=== PATIENT | male | born 1995 | race Two or more races ===

== ENCOUNTER 2024-02-06 07:48 | Inpatient (IN) | payer MEDICAID, OTHER ==
[~2024-02-06] VITALS: Ht 185.4 cm; Wt 79.2 kg
--- NOTE | 2024-02-06 08:36 | ED.PDOC ---
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 Pt reports that he was walking to work yesterday when the pain started. Pt woke up with redness and inflammation to the great toe. Pt has a small abrasion on the top of the great toe <1cm in diameter, no drainage. toenail partially attached on the right great toe. Onset:walking to work, denies trauma Therapies tried: None Requesting ABx Still able to ambulate w/ no assistive devices Denies fevers No pertinent medical hx ID: [id number] Chief Complaint: Lower Extremity Time Seen by MD: 08:21 Reviewed Notes: Nurses Notes, Medications, Allergies Allergies: Coded Allergies: NO KNOWN ALLERGIES (Unverified , 02/06/24) Information Source: Patient Mode of Arrival: Ambulatory Past Medical History PAST MEDICAL HISTORY: Denies Surgical History: Denies all surgeries Family History Family History: Reviewed,noncontributory to illness Social History Smoker: Non-Smoker Alcohol: Denies ETOH Use Drugs: Denies Drug Use Lives In: Homeless Constitutional: denies: chills, diaphoresis, fatigue, fever, malaise, sweats, weakness, others EENTM: denies: blurred vision, double vision, ear bleeding, ear discharge, ear drainage, ear pain, ear ringing, eye pain, eye redness, hearing loss, mouth pain, mouth swelling, nasal discharge, nose bleeding, nose congestion, nose pain, photophobia, tearing, throat pain, throat swelling, voice changes, others Respiratory: denies: cough, hemoptysis, orthopnea, SOB at rest, shortness of breath, SOB with excertion, stridor, wheezing, others Cardiovascular: denies: chest pain, dizzy spells, diaphoresis, Dyspnea on exertion, edema, irregular heart beat, left arm pain, lightheadedness, palpitations, PND, syncope, others Gastrointestinal: denies: abdomen distended, abdominal pain, blood streaked bowels, constipated, diarrhea, dysphagia, difficulty swallowing, hematemesis, [place], nausea, poor appetite, poor fluid intake, rectal bleeding, rectal pain, vomiting, others Genitourinary: denies: burning, dysuria, flank pain, frequency, hematuria, incontinence, penile discharge, penile sore, pain, testicle pain, testicle swelling, urgency, others Neurological: denies: dizziness, fainting, headache, left sided numbness, left sided weakness, numbness, paresthesia, pre-existing deficit, right sided numbness, right sided weakness, seizure, speech problems, tingling, tremors, weakness, others Musculoskeletal: reports: joint pain (Right great toe), others (Pain and inflammation to the first digit of the right foot erythema extends along the dorsal portion of the foot) Integumetry: reports: change in color (Erythema to the right great toe extending up to the midfoot on the plantar portion), wounds (Less than 1 cm abrasion on the anterior portion of the right great) All Other Systems: Reviewed and Negative (per HPI) Physical Exam General Appearance: No Apparent Distress HEENT: Normal ENT Inspection, Pharynx Normal, TMs Normal Neck: Full Range of Motion, Non-Tender, Normal, Normal Inspection Respiratory: Chest Non-Tender, Lungs Clear, No Accessory Muscle Use, No Respiratory Distress, Normal Breath Sounds Cardiovascular: No Edema, No JVD, No Murmur, No Gallop, Normal Peripheral Pulses, Regular Rate/Rhythm Breast Exam: Deferred Gastrointestinal: No Organomegaly, Non Tender, No Pulsatile Mass, Normal Bowel Sounds, Soft Genitalia: Deferred Pelvic: Deferred Rectal: Deferred Extremities: No calf tenderness, Normal capillary refill, Normal inspection, Normal range of motion, Non-tender, No pedal edema Musculoskeletal : Location: Right Extremity Location: Great Toe (erythema, inflammation, tenderness, erythema streaking up to the midfoot-dorsal portion, no discharge or drainage, small abrasion<1cm) Apperance: Normal Neurologic: Alert, belt dresser II-XII nml as Tested, No Motor Deficits, Normal Affect, Normal Mood, No Sensory Deficits Cerebellar Function: Normal Reflexes: Normal Skin: Dry, Normal Color, Warm Lymphatic: No Adenopathy Was a procedure done? Was a procedure done?: No Differential Diagnosis EXT Differential Diagnosis: Cellulitis, Fracture, Gout, Contusion X-Ray, Labs, Meds, VS Vital Signs Date Time Temp Pulse Resp B/P (MAP) Pulse Ox O2 Delivery O2 Flow Rate FiO2 02/06/24 11:47 Room Air* 0 21 02/06/24 08:44 92 18 99 Room Air 02/06/24 08:44 98.2 92 18 148/98 (115) 99 98.2 02/06/24 08:05 98.2 92 18 148/98 (115) 99 Lab Test 02/06/24 09:00 02/06/24 08:50 Range/Units Urine Color Yellow Yellow Urine Clarity Clear Clear Urine pH 6.5 5.0-9.0 Urine Specific [place] 1.037 H 1.001-1.035 Urine Protein 1+ H Negative Urine Ketones 3+ H Negative Urine Blood Negative Negative /uL Urine Nitrite Negative Negative Urine Bilirubin Negative Negative Urine Urobilinogen Over Negative mg/dL Urine Leukocyte Esterase Negative Negative /uL Urine RBC 11 0 - 3 /hpf Urine WBC 1 0 - 3 /hpf Urine Squamous Epithelial Cells Few <5 /hpf Urine Bacteria None seen None Seen /hpf Urine Mucus Few None Seen Urine Glucose Normal Normal mg/dL White Blood Count 18.6 H 4.4-10.8 10^3/uL Red Blood Count 5.27 4.5-5.90 10^6/uL Hemoglobin 15.8 13.5-17.5 g/dL Hematocrit 46.7 41.0-53.0 % Mean Corpuscular Volume 88.6 80.0-100.0 fL Mean Corpuscular Hemoglobin 30.1 28.0-32.0 pg Mean Corpuscular Hemoglobin Concent 33.9 32.0-36.0 g/dL Red Cell Distribution Width 13.6 11.8-14.3 % Platelet Count 249 140-450 10^3/uL Mean Platelet Volume 8.2 6.9-10.8 fL Neutrophils (%) (Auto) 87.9 H 37.0-80.0 % Lymphocytes (%) (Auto) 4.2 L 10.0-50.0 % Monocytes (%) (Auto) 7.5 0.0-12.0 % Eosinophils (%) (Auto) 0.0 0.0-7.0 % Basophils (%) (Auto) 0.4 0.0-2.0 % Neutrophils # (Auto) 16.4 H 1.6-8.6 10 ^3/uL Lymphocytes # (Auto) 0.8 0.4-5.4 10 ^3/uL Monocytes # (Auto) 1.4 H 0-1.3 10 ^3/uL Eosinophils # (Auto) 0 0-0.8 10 ^3/uL Basophils # (Auto) 0.1 0-0.2 10 ^3/uL Nucleated Red Blood Cells 0.0 % Sodium Level 135 L 136-145 mmol/L Potassium Level 3.9 3.5-5.1 mmol/L Chloride Level 101 98-107 mmol/L Carbon Dioxide Level 28 20-31 mmol/L Anion Gap 6 5-15 Blood Urea Nitrogen 10 9-23 mg/dL Creatinine 0.77 0.700-1.30 mg/dL Glomerular Filtration Rate Calc 125 >90 mL/min BUN/Creatinine Ratio 13.0 10.0-20.0 Serum Glucose 103 74-106 mg/dL Uric Acid 5.4 3.7-9.2 mg/dL Calcium Level 10.4 8.7-10.4 mg/dL Total Bilirubin 1.4 H 0.2-1.0 mg/dL Aspartate Amino Transferase (AST) 27 13-40 U/L Alanine Aminotransferase (ALT) 32 7-40 U/L Alkaline Phosphatase 169 H 46-116 U/L C-Reactive Protein High Sensitivity 7.37 H <1.0 mg/dL Total Protein 7.7 5.7-8.2 g/dL Albumin 4.8 3.2-4.8 g/dL Current Medications Medications (Trade) Dose Ordered Sig/Linden Route Start Time Stop Time Status Last Admin Acetaminophen/ Hydrocodone Bitart (Juliette 5/325MG Tab) 1 tab ONCE ONCE PO 02/06/24 08:45 02/06/24 08:46 DC 02/06/24 08:47 Ceftriaxone Sodium (Rocephin) 1,000 mg ONCE ONCE IM 02/06/24 08:45 02/06/24 08:46 DC 02/06/24 08:47 PATIENT: STACY OLSONT: [id number]: [id number] : 1995 LOC: ER ROOM / BED: / AGE / SEX: 28 / M ADM STATUS: REG ER SERVICE 9 ORDERING PHYSICIAN: ENRIQUE COUCH PROCEDURE(s): RFOOT - R FOOT 3 VIEW XRAY REASON: r/o osteomyelitis, r/o fracture ORDER NUMBER(s): [id number], ACCESSION NUMBER(s): [id number] Procedure: XY R FOOT 3 VIEW XRAY 02/06/2024 08:55 AM TECHNIQUE: 3 views of the right foot Indication:r/o osteomyelitis, r/o fracture. Comparison: None FINDINGS: Bones: No acute fracture or dislocation. Joint spaces are maintained. Mild thinning of 2nd distal phalangeal head lateral cortex . Soft tissues: . No radiopaque foreign body.Soft tissue swelling is seen overlying the toes and on dorsum of the foot. An ulceration is seen on the lateral aspect of 2nd distal toe. IMPRESSION: 1. Diffuse soft tissue swelling/ cellulitis, 2nd toe ulceration and questionable developing acute osteomyelitis of the underlying lateral distal phalangeal head. Recommend clinical and biochemical correlation and if indicated further evaluation with MRI. ATED BY: MELIDA PEDRAZA MD DICTATED DATE/TIME: 02/06/24914 SIGNED BY: MELIDA PEDRAZA MD SIGNED DATE/TIME: 02/06/24914 CC: X-Ray, Labs, Meds, VS Comment 1. Diffuse soft tissue swelling/ cellulitis, 2nd toe ulceration and questionable developing acute osteomyelitis of the underlying lateral distal phalangeal head. Recommend clinical and biochemical correlation and if indicated further evaluation with MRI. Pt to be admitted for treatment of cellulitis and osteomyelitis of the right gr eat toe with IV antibiotics and pain control. Time of 1ST Reevaluation: 10:18 Reevaluation 1ST: Improved Patient Education/Counseling: Diagnosis, Treatment, Prognosis Family Education/Counseling: No Family Present Departure 1 Departure Time of Disposition: 10:26 Impression: Primary Impression: Osteomyelitis Qualified Codes: M86.171 - Other acute osteomyelitis, right ankle and foot Additional Impressions: Cellulitis Qualified Codes: L03.031 - Cellulitis of right toe Pain of right great toe Disposition: ADMITTED INPATIENT Condition: Guarded Critical Care Note Critical Care Time?: No Stability Stability form required: No Heart Score Heart Score: Heart Score Response (Comments) Value History N/A 0 EKG N/A 0 Age N/A 0 Risk Factors N/A 0 Troponin N/A 0 Total 0 ENRIQUE COUCH [facility] Feb 06, 2024 08:36
[2024-02-06] MEDS: cefTRIAXone SOD 1,000 MG VL IM ONE (08:47)
[2024-02-06] MEDS: HYDROcodone-ACET 5/325MG TAB PO ONE (08:47)
[2024-02-06 09:12] LABS: Basophils # (auto) 0.1 10 ^3/uL (0-0.2); Basophils % (auto) 0.4 % (0.0-2.0); Eosinophils # (auto) 0 10 ^3/uL (0-0.8); Hematocrit 46.7 % (41.0-53.0); Hemoglobin 15.8 g/dL (13.5-17.5); Lymphocytes # (auto) 0.8 10 ^3/uL (0.4-5.4); Lymphocytes % (auto) 4.2 % (10.0-50.0); Mean Corpuscular Hemoglobin 30.1 pg (28.0-32.0); Mean Corpuscular Hgb Conc. 33.9 g/dL (32.0-36.0); Mean Corpuscular Volume 88.6 fL (80.0-100.0); Monocytes # (auto) 1.4 10 ^3/uL (0-1.3); Monocytes % (auto) 7.5 % (0.0-12.0); Neutrophils # (auto) 16.4 10 ^3/uL (1.6-8.6); Neutrophils % (auto) 87.9 % (37.0-80.0); Platelet Count (auto) 249 10^3/uL (140-450); Red Blood Cells 5.27 10^6/uL (4.5-5.90); Red Cell Distribution Width 13.6 % (11.8-14.3); White Blood Cell 18.6 10^3/uL (4.4-10.8)
--- NOTE | 2024-02-06 09:18 | DVH ---
Procedure: XY R FOOT 3 VIEW XRAY 02/06/2024 08:55 AM TECHNIQUE: 3 views of the right foot Indication:r/o osteomyelitis, r/o fracture. Comparison: None FINDINGS: Bones: No acute fracture or dislocation. Joint spaces are maintained. Mild thinning of 2nd distal pha langeal head lateral cortex . Soft tissues: . No radiopaque foreign body.Soft tissue swelling is seen overlying the toes and on mark sum of the foot. An ulceration is seen on the lateral aspect of 2nd distal toe. IMPRESSION: 1. Diffuse soft tissue swelling/ cellulitis, 2nd toe ulceration and questionable developing acute ost eomyelitis of the underlying lateral distal phalangeal head. Recommend clinical and biochemical corre lation and if indicated further evaluation with MRI.
[2024-02-06 09:33] LABS: Alanine Aminotransferase 32 U/L (7-40); Alkaline Phosphatase 169 U/L (46-116); Anion Gap 6 (5-15); Blood Urea Nitrogen 10 mg/dL (9-23); Calcium 10.4 mg/dL (8.7-10.4); Carbon Dioxide 28 mmol/L (20-31); Chloride 101 mmol/L (98-107); Glucose 103 mg/dL (74-106); Potassium 3.9 mmol/L (3.5-5.1); Sodium 135 mmol/L (136-145)
[2024-02-06 09:34] LABS: Albumin 4.8 g/dL (3.2-4.8); Aspartate Aminotransferase 27 U/L (13-40); Bilirubin, Total 1.4 mg/dL (0.2-1.0); Total Protein 7.7 g/dL (5.7-8.2)
[2024-02-06 09:42] LABS: CRP High Sensitivity 7.37 mg/dL (<1.0)
[2024-02-06 09:49] LABS: Urine Bacteria None Seen /hpf (None Seen)
[2024-02-06 10:04] LABS: Urine Blood Negative /uL (Negative); Urine Clarity Clear (Clear); Urine Color Yellow (Yellow); Urine Mucus FEW (None Seen); Urine Protein, UAD 1+ (Negative); Urine Specific Gravity 1.037 (1.001-1.035); Urine Urobilinogen OVER mg/dL (Negative); Urine WBC 1 /hpf (0 - 3); Urine pH 6.5 (5.0-9.0)
[2024-02-06] MEDS: SODIUM CHLORIDE 0.9% 1,000 ML IV SCH (11:15)
[2024-02-06] MEDS ORDERED: DOCUSATE SOD 100 MG CAP PO PRN (11:15)
[2024-02-06] MEDS ORDERED: VANCOMYCIN PER PHARMACY 0 MG IV SCH (11:30)
--- NOTE | 2024-02-06 11:42 | DVHHP2 ---
History of Present Illness Reason for Visit: Osteomyelitis History of Present Illness The patient is a 28-year-old male deaf who denies past medical history presented to [facility] ED with complaint of right great toe pain. Patient reports symptoms progressively get worse with redness, swollen, difficulty sleeping due to excessive pain, getting worse that prompted this visit. Patient has a small abrasion on the top of the great toe <1cm in diameter, no drainage. toenail partially attached on the right great toe. Patient was seen and evaluated in the ED, laboratory data shows elevated WBC 18.6, platelets 249, sodium 135, potassium 3.9, BUN 10, creatinine 0 seven seven, glucose 103, CRP 7.37, uric acid 5.4, total bilirubin 1.4, blood pressure 148/98, rate 92, temperature 98.2 F, O2 saturation 99% room. Right foot CT revealing diffuse soft tissue swelling/cellulitis, 2nd toe ulceration and questionable developing acute osteomyelitis of the underlying lateral distal phalangeal head. Patient was started on IV antibiotic regimen Zosyn, please see medication orders section in the computer. On my assessment, patient denies chest pain, no headache, no dizziness, no nausea, no vomiting, no fever, no chills. Patient was admitted for further evaluation and medical management Past Medical History Denies past medical history Past Surgical History Denies all surgeries Family History Reviewed, noncontributory to the management of this case. Past Social History The patient lives at home, denies smoking, alcohol or illicit drugs abuse. Review of Systems Constitutional: No: Fever, Chills, Sweats, Weakness, Malaise, Other Eyes: No: Pain, Vision change, Conjunctivae inflammation, Eyelid inflammation, Other, Redness ENT: No: Ear pain, Ear discharge, Nose pain, Nose discharge, Nose congestion, Mouth pain, Mouth swelling, Throat pain, Throat swelling, Other Respiratory: No: Cough, Dry, Shortness of breath, SOB with excertion, Wheezing, Hemoptysis, Pleuritic Pain, Sputum, Wheezing, Other Cardiovascular: No: Chest Pain, Palpitations, Orthopnea, Paroxysmal Noc. Dyspnea, Edema, Lt Headedness, Other Gastrointestinal: No: Nausea, Vomiting, Abdominal Pain, Diarrhea, Constipation, Melena, Hematochezia, Other Genitourinary: No Dysuria, No Frequency, No Incontinence, No Hematuria, No Retention, No Other Musculoskeletal: other (Right great toe pain); No: neck pain, shoulder pain, arm pain, back pain, hand pain, leg pain, foot pain Skin: No: Rash, Lesions, Jaundice, Bruising, Other Neurological: No: Weakness, Numbness, Incoordination, Change in speech, Confusion, Seizures, Other Allergies: Coded Allergies: NO KNOWN ALLERGIES (Unverified , 02/06/24) Medications Current Medications Medications Dose Ordered Sig/Linden Route Start Time Stop Time Status Last Admin Dose Admin Piperacillin Sod/ Tazobactam Sod 100 ml @ 25 mls/hr Q8HR IV 02/06/24 14:00 UNV Sodium Chloride 1,000 ml @ 60 mls/hr [id number] IV 02/06/24 11:15 UNV Acetaminophen/ Hydrocodone Bitart 1 tab Q4HP PRN PO 02/06/24 11:15 UNV Ondansetron HCl 4 mg Q4HP PRN IV 02/06/24 11:15 UNV Docusate Sodium 100 mg BIDPRN PRN PO 02/06/24 11:15 UNV Acetaminophen 650 mg Q6HP PRN PO 02/06/24 11:15 UNV Morphine Sulfate 2 mg Q4HPRN PRN IV 02/06/24 11:15 UNV Vancomycin HCl 0 ml @ 0 mls/hr UD IV 02/06/24 11:30 UNV Exam Vital Signs Vital Signs Date Time Temp Pulse Resp B/P (MAP) Pulse Ox O2 Delivery O2 Flow Rate FiO2 02/06/24 08:44 92 18 99 Room Air 02/06/24 08:44 98.2 148/98 (115) 98.2 General Appearance: Alert, Oriented X3, Cooperative, No acute distress HEENT: Atraumatic, PERRLA, EOMI, Mucous membr. moist/pink Respiratory: Clear to auscultation, Normal air movement Cardiovascular: Regular rate, Normal S1, Normal S2, No murmurs Abdominal: Normal bowel sounds, Soft, No tenderness, No hepatospenomegaly, No masses Extremities: No clubbing, No cyanosis, No edema, Normal pulses, Other (Right great toe tenderness/swelling) Skin: No rashes, No breakdown, No significant lesion Neuro: Normal gait, Normal speech, Strength at 5/5 X4 ext, Normal tone, Sensation intact, Cranial nerves 3-12 NL, Reflexes 2+ Psych/Mental Status: Mental status NL, Mood NL Labs/Xrays Labs Test 02/06/24 09:00 02/06/24 08:50 Range/Units Urine Color Yellow Yellow Urine Clarity Clear Clear Urine pH 6.5 5.0-9.0 Urine Specific [place] 1.037 H 1.001-1.035 Urine Protein 1+ H Negative Urine Ketones 3+ H Negative Urine Blood Negative Negative /uL Urine Nitrite Negative Negative Urine Bilirubin Negative Negative Urine Urobilinogen Over Negative mg/dL Urine Leukocyte Esterase Negative Negative /uL Urine RBC 11 0 - 3 /hpf Urine WBC 1 0 - 3 /hpf Urine Squamous Epithelial Cells Few <5 /hpf Urine Bacteria None seen None Seen /hpf Urine Mucus Few None Seen Urine Glucose Normal Normal mg/dL White Blood Count 18.6 H 4.4-10.8 10^3/uL Red Blood Count 5.27 4.5-5.90 10^6/uL Hemoglobin 15.8 13.5-17.5 g/dL Hematocrit 46.7 41.0-53.0 % Mean Corpuscular Volume 88.6 80.0-100.0 fL Mean Corpuscular Hemoglobin 30.1 28.0-32.0 pg Mean Corpuscular Hemoglobin Concent 33.9 32.0-36.0 g/dL Red Cell Distribution Width 13.6 11.8-14.3 % Platelet Count 249 140-450 10^3/uL Mean Platelet Volume 8.2 6.9-10.8 fL Neutrophils (%) (Auto) 87.9 H 37.0-80.0 % Lymphocytes (%) (Auto) 4.2 L 10.0-50.0 % Monocytes (%) (Auto) 7.5 0.0-12.0 % Eosinophils (%) (Auto) 0.0 0.0-7.0 % Basophils (%) (Auto) 0.4 0.0-2.0 % Neutrophils # (Auto) 16.4 H 1.6-8.6 10 ^3/uL Lymphocytes # (Auto) 0.8 0.4-5.4 10 ^3/uL Monocytes # (Auto) 1.4 H 0-1.3 10 ^3/uL Eosinophils # (Auto) 0 0-0.8 10 ^3/uL Basophils # (Auto) 0.1 0-0.2 10 ^3/uL Nucleated Red Blood Cells 0.0 % Sodium Level 135 L 136-145 mmol/L Potassium Level 3.9 3.5-5.1 mmol/L Chloride Level 101 98-107 mmol/L Carbon Dioxide Level 28 20-31 mmol/L Anion Gap 6 5-15 Blood Urea Nitrogen 10 9-23 mg/dL Creatinine 0.77 0.700-1.30 mg/dL Glomerular Filtration Rate Calc 125 >90 mL/min BUN/Creatinine Ratio 13.0 10.0-20.0 Serum Glucose 103 74-106 mg/dL Uric Acid 5.4 3.7-9.2 mg/dL Calcium Level 10.4 8.7-10.4 mg/dL Total Bilirubin 1.4 H 0.2-1.0 mg/dL Aspartate Amino Transferase (AST) 27 13-40 U/L Alanine Aminotransferase (ALT) 32 7-40 U/L Alkaline Phosphatase 169 H 46-116 U/L C-Reactive Protein High Sensitivity 7.37 H <1.0 mg/dL Total Protein 7.7 5.7-8.2 g/dL Albumin 4.8 3.2-4.8 g/dL PATIENT: NAVEEN OLSON ACCT: [id number] UNIT: [id number] : 1995 LOC: ER ROOM / BED: / AGE / SEX: 28 / M ADM STATUS: REG ER SERVICE 0840 ORDERING PHYSICIAN: ENRIQUE COUCH PROCEDURE(s): RFOOT - R FOOT 3 VIEW XRAY REASON: r/o osteomyelitis, r/o fracture ORDER NUMBER(s): [id number], ACCESSION NUMBER(s): [id number] Procedure: XY R FOOT 3 VIEW XRAY 02/06/2024 08:55 AM TECHNIQUE: 3 views of the right foot Indication:r/o osteomyelitis, r/o fracture. Comparison: None FINDINGS: Bones: No acute fracture or dislocation. Joint spaces are maintained. Mild thinning of 2nd distal phalangeal head lateral cortex . Soft tissues: No radiopaque foreign body.Soft tissue swelling is seen overlying the toes and on dorsum of the foot. An ulceration is seen on the lateral aspect of 2nd distal toe. IMPRESSION: 1. Diffuse soft tissue swelling/cellulitis, 2nd toe ulceration and questionable developing acute osteomyelitis of the underlying lateral distal phalangeal head. Recommend clinical and biochemical correlation and if indicated further evaluation with MRI. Assessment/Plan Assessment/Plan Osteomyelitis Cellulitis of right toe Pain of right great toe Other acute osteomyelitis, right ankle and foot Plan 1. Admit to med surge unit 2. Breathing treatment 3. Pain control management 4. IV antibiotic management 5. Management of fluids and electrolytes 6. Consultation for hospitalist 7. Diagnostic test right foot CT 8. DVT prophylaxis-on SCDs 9. Repeat labs CBC, CMP in a.m. 10. Home medication reviewed and reconciled 11. Continue with current medical management 12. Treatment plan discussed with patient and RN. Patient verbalized understandi ng. Plan discussed with: Patient, Other (RN) My Orders Orders - PAM MADRID DNP Procedure Category Date Status Time Blood Culture LY 02/06/24 Logged 11:07 Piperacillin-Tazob PHA 02/06/24 Logged 3.375gm (Zosyn 3.375g 14:00 Allergies EMANUEL 02/06/24 In Process 11:07 Code Status CODE 02/06/24 Transmitted 11:07 2 Gm Sodium Diet DIET 02/06/24 Transmitted Lunch Sodium Chloride 0.9% PHA 02/06/24 Logged 11:15 Oxygen Per Hour RT 02/06/24 Transmitted 11:07 Hydrocodone-Acet PHA 02/06/24 Logged 5/325mg Tab ([place] 11:15 Ondansetron Hcl PHA 02/06/24 Logged (Zofran) 11:15 Docusate Sodium PHA 02/06/24 Logged Capsule (Colace 11:15 Complete Blood Count LAB 02/07/24 Verified 04:00 Comprehensive LAB 02/07/24 Verified Metabolic Panel 04:00 Condition: Serious EMANUEL 02/06/24 In Process 11:07 Acetaminophen Tablet PHA 02/06/24 Logged (Tylenol Tablet) 11:15 Bedrest With Bathroom EMANUEL 02/06/24 In Process Privileg 11:07 Morphine Sulfate PHA 02/06/24 Logged Injection 11:15 Sequential EMANUEL 02/06/24 In Process Compression Device Vancomycin Per PHA 02/06/24 Logged Pharmacy 11:30 Problem List: (1) Osteomyelitis (2) Cellulitis of right toe (3) Pain of right great toe (4) Other acute osteomyelitis, right ankle and foot Date of Service: Feb 06, 2024 Billing Provider: PAM MADRID DNP Common Visit Codes: [id number] INP/OBS CARE (HIGH) PAM MADRID DNP Feb 06, 2024 11:42
[2024-02-06] MEDS ORDERED: MORPHINE SULFATE INJ 2 MG/ml SYRG IV PRN (11:45)
[2024-02-06] MEDS ORDERED: NITROGLYCERIN 0.4 MG SL TAB SL PRN (11:45)
[2024-02-06] MEDS: VANCOMYCIN 1GM/200ML PREMIX 200 ML IV SCH (12:47)
[2024-02-06] MEDS: PIPERACILLIN-TAZOB 3.375GM 100 ML IV SCH (14:17)
[2024-02-06] MEDS: VANCOMYCIN 1GM/200ML PREMIX 200 ML IV ONE (16:33)
[2024-02-06 17:15] VITALS: BP 133/88; PULSE 91; RESP 16; TEMP 99.4; O2SAT 99
[2024-02-06] MEDS: ONDANSETRON HCL 4 MG/2 ML VIAL IV PRN (20:59)
[2024-02-06] MEDS: MORPHINE SULFATE INJ 2 MG/ml SYRG IV PRN (21:01)
[2024-02-06] MEDS: VANCOMYCIN 1.25GM/250ML 250 ML IV SCH (23:03)
[2024-02-07] VITALS (8 sets, daily range): BP systolic 123–129; BP diastolic 75–84; PULSE 75–94; RESP 14–21; TEMP 98.2–99.3; O2SAT 96–99
[2024-02-07] MEDS: ACETAMINOPHEN 325 MG TAB PO PRN (02:00)
[2024-02-07 05:45] LABS: Basophils # (auto) 0.1 10 ^3/uL (0-0.2); Basophils % (auto) 0.3 % (0.0-2.0); Eosinophils # (auto) 0 10 ^3/uL (0-0.8); Eosinophils % (auto) 0.1 % (0.0-7.0); Hematocrit 44.4 % (41.0-53.0); Hemoglobin 15.2 g/dL (13.5-17.5); Lymphocytes # (auto) 1.7 10 ^3/uL (0.4-5.4); Lymphocytes % (auto) 10.3 % (10.0-50.0); Mean Corpuscular Hemoglobin 30.5 pg (28.0-32.0); Mean Corpuscular Hgb Conc. 34.3 g/dL (32.0-36.0); Mean Corpuscular Volume 88.9 fL (80.0-100.0); Monocytes # (auto) 1.5 10 ^3/uL (0-1.3); Monocytes % (auto) 9.3 % (0.0-12.0); Platelet Count (auto) 238 10^3/uL (140-450); Red Cell Distribution Width 13.5 % (11.8-14.3); White Blood Cell 16.3 10^3/uL (4.4-10.8)
[2024-02-07 06:02] LABS: Alanine Aminotransferase 31 U/L (7-40); Albumin 4.4 g/dL (3.2-4.8); Alkaline Phosphatase 154 U/L (46-116); Anion Gap 6 (5-15); Aspartate Aminotransferase 17 U/L (13-40); BUN/Creatinine Ratio 9.4 (10.0-20.0); Bilirubin, Total 0.8 mg/dL (0.2-1.0); Blood Urea Nitrogen 8 mg/dL (9-23); Calcium 9.7 mg/dL (8.7-10.4); Carbon Dioxide 27 mmol/L (20-31); Chloride 104 mmol/L (98-107); Glucose 110 mg/dL (74-106); Potassium 3.9 mmol/L (3.5-5.1); Sodium 137 mmol/L (136-145); Total Protein 7.1 g/dL (5.7-8.2)
[2024-02-07] MEDS: PIPERACILLIN-TAZOB 3.375GM 100 ML IV SCH ×2 (10:17→20:26)
[2024-02-07] MEDS: HYDROcodone-ACET 5/325MG TAB PO PRN (12:59)
--- NOTE | 2024-02-07 13:32 | DVHPN2 ---
Reviewed: Care Plan, H&P, Labs, Medications, Previous Orders, Radiology Changes from previous H/P or p: No Changes Eyes: No Pain, No Vision change, No Conjunctivae inflammation, No Eyelid inflammation, No Other, No Redness ENT: No Ear pain, No Ear discharge, No Nose pain, No Nose discharge, No Nose congestion, No Mouth pain, No Mouth swelling, No Throat pain, No Throat swelling, No Other Cardiovascular: No Chest Pain, No Palpitations, No Orthopnea, No Paroxysmal Noc. Dyspnea, No Edema, No Lt Headedness, No Other Respiratory: No Cough, No Dry, No Shortness of breath, No SOB with excertion, No Wheezing, No Hemoptysis, No Pleuritic Pain, No Sputum, No Other Gastrointestinal: No Nausea, No Vomiting, No Abdominal Pain, No Diarrhea, No Constipation, No Melena, No Hematochezia, No Other Genitourinary: No Dysuria, No Frequency, No Incontinence, No Hematuria, No Retention, No Other Musculoskeletal: other (Right great toe pain); No neck pain, No shoulder pain, No arm pain, No back pain, No hand pain, No leg pain, No foot pain Skin: No Rash, No Lesions, No Jaundice, No Bruising, No Other Objective Vitals Vital Signs Date Time Temp Pulse Resp B/P (MAP) Pulse Ox O2 Delivery O2 Flow Rate FiO2 02/07/24 12:50 98.4 77 21 127/80 (96) 96 98.4 02/07/24 08:00 Room Air* 0 21 Intake/Output Intake and Output 02/07/24 07:00 Intake Total 500 ml Output Total 550 ml Balance -50 ml Intake Oral 250 ml IV Total 250 ml Output Urine Total 550 ml # Bowel Movements 1 Medications Current Medications Medications Dose Ordered Sig/Linden Route Start Time Stop Time Status Last Admin Dose Admin Sodium Chloride 1,000 ml @ 60 mls/hr [id number] IV 02/06/24 11:15 02/07/24 04:00 60 MLS/HR Acetaminophen/ Hydrocodone Bitart 1 tab Q4HP PRN PO 02/06/24 11:15 02/07/24 12:59 1 TAB Ondansetron HCl 4 mg Q4HP PRN IV 02/06/24 11:15 02/06/24 20:59 4 MG Docusate Sodium 100 mg BIDPRN PRN PO 02/06/24 11:15 Acetaminophen 650 mg Q6HP PRN PO 02/06/24 11:15 02/07/24 02:00 650 MG Morphine Sulfate 2 mg Q4HPRN PRN IV 02/06/24 11:15 02/06/24 21:01 2 MG Vancomycin HCl 0 ml @ 0 mls/hr UD IV 02/06/24 11:30 Nitroglycerin 0.4 mg Q5MINP PRN SL 02/06/24 11:45 Morphine Sulfate 2 mg Q30M PRN IV 02/06/24 11:45 Vancomycin HCl 250 ml @ 200 mls/hr Q12H IV 02/07/24 01:00 02/06/24 23:03 200 MLS/HR Piperacillin Sod/ Tazobactam Sod 100 ml @ 25 mls/hr Q8H IV 02/07/24 10:00 02/07/24 10:17 25 MLS/HR Laboratory Results Laboratory Tests 02/07/24 04:54 Chemistry Test 02/07/24 04:54 Albumin 4.4 g/dL (3.2-4.8) Calcium Level 9.7 mg/dL (8.7-10.4) Total Protein 7.1 g/dL (5.7-8.2) LFT Test 02/07/24 04:54 Alanine Aminotransferase (ALT) 31 U/L (7-40) Alkaline Phosphatase 154 U/L (46-116) H Aspartate Amino Transferase (AST) 17 U/L (13-40) Total Bilirubin 0.8 mg/dL (0.2-1.0) Urinalysis Test 02/06/24 09:00 Urine Color Yellow (Yellow) Urine Clarity Clear (Clear) Urine pH 6.5 (5.0-9.0) Urine Specific [place] 1.037 (1.001-1.035) Urine Protein 1+ (Negative) H Urine Ketones 3+ (Negative) H Urine Blood Negative /uL (Negative) Urine Nitrite Negative (Negative) Urine Bilirubin Negative (Negative) Urine Urobilinogen Over mg/dL (Negative) Urine Leukocyte Esterase Negative /uL (Negative) Urine RBC 11 /hpf (0 - 3) Urine WBC 1 /hpf (0 - 3) Urine Squamous Epithelial Cells Few /hpf (<5) Urine Bacteria None seen /hpf (None Seen) Urine Mucus Few (None Seen) Urine Glucose Normal mg/dL (Normal) Microbiology Microbiology Date/Time Source Procedure Growth Status 02/06/24 12:47 Blood Blood Culture - Preliminary NO GROWTH AFTER 24 HOURS OF INCUBATION. Resulted Labs and/or images reviewed: Labs reviewed by me, Image(s) reviewed by me Assessment/Plan Assessment/Plan Sepsis secondary to cellulitis right foot Acute osteomyelitis right 2nd toe: Vancomycin Zosyn consult for podiatry Dr. Momin Hearing impaired Plan discussed with: Patient My Orders Orders - AYO CERDA MD Procedure Category Date Status Time *Podiatry Consult CONS 02/07/24 Verified Liliane([facility]) 13:26 Date of Service: Feb 07, 2024 Billing Provider: AYO CERDA MD Common Visit Codes: [id number] INP/OBS CARE(HIGH) AYO CERDA MD Feb 07, 2024 13:32
--- NOTE | 2024-02-07 14:04 | DVHINCON2 ---
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 Patient reports symptoms progressively get worse with redness, swollen, difficulty sleeping due to excessive pain, getting worse that prompted this visit. Patient has a small abrasion on the top of the great toe <1cm in diameter, no drainage. toenail partially attached on the right great toe. Patient was seen and evaluated in the ED, laboratory data shows elevated WBC 18.6, platelets 249, sodium 135, potassium 3.9, BUN 10, creatinine 0 seven seven, glucose 103, CRP 7.37, uric acid 5.4, total bilirubin 1.4, blood pressure 148/98, rate 92, temperature 98.2 F, O2 saturation 99% room. Right foot CT revealing diffuse soft tissue swelling/cellulitis, 2nd toe ulceration and questionable developing acute osteomyelitis of the underlying lateral distal phalangeal head. Patient was started on IV antibiotic regimen Zosyn, please see medication orders section in the computer. On my assessment, patient denies chest pain, no headache, no dizziness, no nausea, no vomiting, no fever, no chills. Patient was admitted for further evaluation and medical management Past Medical History See H&P Past Surgical History See H&P Family History: Patient reports no known family medical history. Allergies: Coded Allergies: NO KNOWN ALLERGIES (Unverified , 02/06/24) Home Meds No Active Prescriptions or Reported Meds Current Medications Current Medications Medications (Trade) Dose Ordered Sig/Linden Route PRN Reason Start Time Stop Time Status Last Admin Vancomycin HCl 250 ml @ 200 mls/hr Q12H IV 02/07/24 01:00 02/06/24 23:03 Piperacillin Sod/ Tazobactam Sod 100 ml @ 25 mls/hr Q8H IV 02/07/24 10:00 02/07/24 10:17 Vital Signs Vital Signs Date Time Temp Pulse Resp B/P (MAP) Pulse Ox O2 Delivery O2 Flow Rate FiO2 02/07/24 12:50 98.4 77 21 127/80 (96) 96 98.4 02/07/24 08:00 Room Air* 0 21 Physical Exam DERMATOLOGIC EXAM: - Skin is dry and cool to the touch dry bilaterally. - Nails 1-5 of the bilateral foot are thickened, discolored, dystrophic, and tender to palpate with subungual debris - Hair loss noted to bilateral feet - significantly cellulitis and swelling to the right hallux with purulent drainage VASCULAR EXAM: - DP and PT pulses are palpable bilaterally. - DECK OFFICER is brisk to all digits. - Feet are cool to touch compared to lower legs bilaterally. NEUROLOGIC EXAM: - Normal light touch sensation to the superficial peroneal, deep peroneal, sural, saphenous, and tibial nerve branches. - Protective sensation is diminished as tested with a 5.07 10g [place] bilaterally. MUSCULOSKELETAL EXAM: - No gross deformities - Muscle strength is 5/5 and active motion is pain-free and symmetrical bilaterally - No pain or crepitation with passive range of motion bilaterally to all major pedal joints Labs/Diagnostic Data Labs Test 02/07/24 04:54 02/06/24 09:00 02/06/24 08:50 Range/Units White Blood Count 16.3 H 4.4-10.8 10^3/uL Red Blood Count 5.00 4.5-5.90 10^6/uL Hemoglobin 15.2 13.5-17.5 g/dL Hematocrit 44.4 41.0-53.0 % Mean Corpuscular Volume 88.9 80.0-100.0 fL Mean Corpuscular Hemoglobin 30.5 28.0-32.0 pg Mean Corpuscular Hemoglobin Concent 34.3 32.0-36.0 g/dL Red Cell Distribution Width 13.5 11.8-14.3 % Platelet Count 238 140-450 10^3/uL Mean Platelet Volume 8.2 6.9-10.8 fL Neutrophils (%) (Auto) 80.0 37.0-80.0 % Lymphocytes (%) (Auto) 10.3 10.0-50.0 % Monocytes (%) (Auto) 9.3 0.0-12.0 % Eosinophils (%) (Auto) 0.1 0.0-7.0 % Basophils (%) (Auto) 0.3 0.0-2.0 % Neutrophils # (Auto) 13.0 H 1.6-8.6 10 ^3/uL Lymphocytes # (Auto) 1.7 0.4-5.4 10 ^3/uL Monocytes # (Auto) 1.5 H 0-1.3 10 ^3/uL Eosinophils # (Auto) 0 0-0.8 10 ^3/uL Basophils # (Auto) 0.1 0-0.2 10 ^3/uL Nucleated Red Blood Cells 0.0 % Sodium Level 137 136-145 mmol/L Potassium Level 3.9 3.5-5.1 mmol/L Chloride Level 104 98-107 mmol/L Carbon Dioxide Level 27 20-31 mmol/L Anion Gap 6 5-15 Blood Urea Nitrogen 8 L 9-23 mg/dL Creatinine 0.85 0.700-1.30 mg/dL Glomerular Filtration Rate Calc 121 >90 mL/min BUN/Creatinine Ratio 9.4 L 10.0-20.0 Serum Glucose 110 H 74-106 mg/dL Calcium Level 9.7 8.7-10.4 mg/dL Total Bilirubin 0.8 0.2-1.0 mg/dL Aspartate Amino Transferase (AST) 17 13-40 U/L Alanine Aminotransferase (ALT) 31 7-40 U/L Alkaline Phosphatase 154 H 46-116 U/L Total Protein 7.1 5.7-8.2 g/dL Albumin 4.4 3.2-4.8 g/dL Urine Color Yellow Yellow Urine Clarity Clear Clear Urine pH 6.5 5.0-9.0 Urine Specific [place] 1.037 H 1.001-1.035 Urine Protein 1+ H Negative Urine Ketones 3+ H Negative Urine Blood Negative Negative /uL Urine Nitrite Negative Negative Urine Bilirubin Negative Negative Urine Urobilinogen Over Negative mg/dL Urine Leukocyte Esterase Negative Negative /uL Urine RBC 11 0 - 3 /hpf Urine WBC 1 0 - 3 /hpf Urine Squamous Epithelial Cells Few <5 /hpf Urine Bacteria None seen None Seen /hpf Urine Mucus Few None Seen Urine Glucose Normal Normal mg/dL Uric Acid 5.4 3.7-9.2 mg/dL C-Reactive Protein High Sensitivity 7.37 H <1.0 mg/dL Microbiology Date/Time Source Procedure Growth Status 02/06/24 12:47 Blood Blood Culture - Preliminary NO GROWTH AFTER 24 HOURS OF INCUBATION. Resulted Problems(with codes): (1) Cellulitis (2) Osteomyelitis (3) Pain of right great toe (4) Other acute osteomyelitis, right ankle and foot (5) Cellulitis of right toe Plan/Recommendation ASSESSMENT: Patient is a 28-year-old male who presents to clinic for right hallux cellulitis PLAN: - The patients chart was reviewed, clinical findings were discussed with the patient, the etiologies of the conditions were discussed in detail, and a treatment plan was agreed to at this time, with both oral and written instructions provided. - discussed with the patient that with the swelling and erythema that we need to take him to the lower perform an I&D - patient will be NPO at midnight - continue IV antibiotics - we will get cultures in the OR - with all off on any advanced imaging at this point All questions were answered and concerns addressed to the patient's satisfaction. The patient was given the phone number to the clinic and was told how to make contact with the clinic should any concerns or questions arise. Patient understands that if any questions or concerns arise prior to the next appointment, we should be contacted immediately. FOLLOW-UP: Continue to follow while inpatient Plan discussed with: Patient Date of Service: Feb 07, 2024 Billing Provider: JORGE L COLEMAN DPM Common Visit Codes: [id number] INP/OBS CARE (MOD) JORGE L COLEMAN DPM Feb 07, 2024 14:04
[2024-02-07] MEDS: MUPIROCIN 2% OINT 15gm or 22gm FOR MRSA NARES EACHNOSTRI SCH (22:23)
[2024-02-08] VITALS (9 sets, daily range): BP systolic 93–138; BP diastolic 53–133; PULSE 73–116; RESP 14–21; TEMP 97.9–98.3; O2SAT 95–100
[2024-02-08 11:03] LABS: INR 1.08 (0.9-1.15); Partial Thromboplastin Time 27.9 SEC (24.5-34.5); Prothrombin Time 11.4 sec (9.3-11.8)
--- NOTE | 2024-02-08 11:46 | DVHPN2 ---
Reviewed: Care Plan, H&P, Labs, Medications, Previous Orders, Radiology Changes from previous H/P or p: No Changes Eyes: No Pain, No Vision change, No Conjunctivae inflammation, No Eyelid inflammation, No Other, No Redness ENT: No Ear pain, No Ear discharge, No Nose pain, No Nose discharge, No Nose congestion, No Mouth pain, No Mouth swelling, No Throat pain, No Throat swelling, No Other Cardiovascular: No Chest Pain, No Palpitations, No Orthopnea, No Paroxysmal Noc. Dyspnea, No Edema, No Lt Headedness, No Other Respiratory: No Cough, No Dry, No Shortness of breath, No SOB with excertion, No Wheezing, No Hemoptysis, No Pleuritic Pain, No Sputum, No Other Gastrointestinal: No Nausea, No Vomiting, No Abdominal Pain, No Diarrhea, No Constipation, No Melena, No Hematochezia, No Other Genitourinary: No Dysuria, No Frequency, No Incontinence, No Hematuria, No Retention, No Other Musculoskeletal: other (Right great toe pain); No neck pain, No shoulder pain, No arm pain, No back pain, No hand pain, No leg pain, No foot pain Skin: No Rash, No Lesions, No Jaundice, No Bruising, No Other Objective Vitals Vital Signs Date Time Temp Pulse Resp B/P (MAP) Pulse Ox O2 Delivery O2 Flow Rate FiO2 02/08/24 09:13 98.2 75 18 133/78 (96) 98 98.2 02/08/24 08:00 Room Air* 0 21 Intake/Output Intake and Output 02/08/24 07:00 Intake Total 1290 ml Output Total 2300 ml Balance -1010 ml Intake Oral 940 ml IV Total 350 ml Output Urine Total 2300 ml Medications Current Medications Medications Dose Ordered Sig/Linden Route Start Time Stop Time Status Last Admin Dose Admin Sodium Chloride 1,000 ml @ 60 mls/hr [id number] IV 02/06/24 11:15 02/07/24 04:00 60 MLS/HR Acetaminophen/ Hydrocodone Bitart 1 tab Q4HP PRN PO 02/06/24 11:15 02/07/24 12:59 1 TAB Ondansetron HCl 4 mg Q4HP PRN IV 02/06/24 11:15 02/06/24 20:59 4 MG Docusate Sodium 100 mg BIDPRN PRN PO 02/06/24 11:15 Acetaminophen 650 mg Q6HP PRN PO 02/06/24 11:15 02/07/24 02:00 650 MG Morphine Sulfate 2 mg Q4HPRN PRN IV 02/06/24 11:15 02/06/24 21:01 2 MG Vancomycin HCl 0 ml @ 0 mls/hr UD IV 02/06/24 11:30 Nitroglycerin 0.4 mg Q5MINP PRN SL 02/06/24 11:45 Morphine Sulfate 2 mg Q30M PRN IV 02/06/24 11:45 Vancomycin HCl 250 ml @ 200 mls/hr Q12H IV 02/07/24 01:00 02/08/24 01:11 200 MLS/HR Mupirocin 1 applic BID EACHNOSTRI 02/07/24 22:00 02/12/24 21:59 02/07/24 22:23 1 APPLIC Piperacillin Sod/ Tazobactam Sod 100 ml @ 25 mls/hr Q6H IV 02/07/24 16:00 02/08/24 04:03 25 MLS/HR Laboratory Results Laboratory Tests 02/07/24 04:54 Coagulation Test 02/08/24 10:00 Prothrombin Time 11.4 sec (9.3-11.8) Prothrombin Time INR 1.08 (0.9-1.15) Activated Partial Thromboplast Time 27.9 SEC (24.5-34.5) Urinalysis Test 02/06/24 09:00 Urine Color Yellow (Yellow) Urine Clarity Clear (Clear) Urine pH 6.5 (5.0-9.0) Urine Specific [place] 1.037 (1.001-1.035) Urine Protein 1+ (Negative) H Urine Ketones 3+ (Negative) H Urine Blood Negative /uL (Negative) Urine Nitrite Negative (Negative) Urine Bilirubin Negative (Negative) Urine Urobilinogen Over mg/dL (Negative) Urine Leukocyte Esterase Negative /uL (Negative) Urine RBC 11 /hpf (0 - 3) Urine WBC 1 /hpf (0 - 3) Urine Squamous Epithelial Cells Few /hpf (<5) Urine Bacteria None seen /hpf (None Seen) Urine Mucus Few (None Seen) Urine Glucose Normal mg/dL (Normal) Microbiology Microbiology Date/Time Source Procedure Growth Status 02/07/24 04:40 Nose MRSA Screen - Final Methicillin Resistant S.aureus Complete 02/06/24 12:47 Blood Blood Culture - Preliminary NO GROWTH AFTER 24 HOURS OF INCUBATION. Resulted Labs and/or images reviewed: Labs reviewed by me, Image(s) reviewed by me Assessment/Plan Assessment/Plan Sepsis secondary to cellulitis right foot Acute osteomyelitis right 2nd toe: Vancomycin Zosyn consult for podiatry Dr. Momin appreciated the, patient getting incision and drainage of the abscess today Hearing impaired Plan discussed with: Patient My Orders Orders - AYO CERDA MD Procedure Category Date Status Time *Podiatry Consult CONS 02/07/24 Transmitted Liliane(Dvmg) 13:26 Mupirocin 2% Oint PHA 02/07/24 In Process Mrsa Nares (Bactroban 22:00 Type And Screen BBK 02/08/24 In Process 05:30 Date of Service: Feb 08, 2024 Billing Provider: AYO CERDA MD Common Visit Codes: [id number] INP/OBS CARE(HIGH) AYO CERDA MD Feb 08, 2024 11:46
--- NOTE | 2024-02-08 13:04 | DVHPN2 ---
Subjective he patient is a 28-year-old male deaf who denies past medical history presented to [facility] ED with complaint of right great toe pain. Patient reports symptoms progressively get worse with redness, swollen, difficulty sleeping due to excessive pain, getting worse that prompted this visit. Patient has a small abrasion on the top of the great toe <1cm in diameter, no drainage. toenail partially attached on the right great toe. Patient was seen and evaluated in the ED, laboratory data shows elevated WBC 18.6, platelets 249, sodium 135, potassium 3.9, BUN 10, creatinine 0 seven seven, glucose 103, CRP 7.37, uric acid 5.4, total bilirubin 1.4, blood pressure 148/98, rate 92, temperature 98.2 F, O2 saturation 99% room. Right foot CT revealing diffuse soft tissue swelling/cellulitis, 2nd toe ulceration and questionable developing acute osteomyelitis of the underlying lateral distal phalangeal head. Patient was started on IV antibiotic regimen Zosyn, please see medication orders section in the computer. On my assessment, patient denies chest pain, no headache, no dizziness, no nausea, no vomiting, no fever, no chills. Patient was admitted for further evaluation and medical management Reviewed: Care Plan, H&P, Labs, Medications, Previous Orders, Radiology Changes from previous H/P or p: No Changes Eyes: No Pain, No Vision change, No Conjunctivae inflammation, No Eyelid inflammation, No Other, No Redness ENT: No Ear pain, No Ear discharge, No Nose pain, No Nose discharge, No Nose congestion, No Mouth pain, No Mouth swelling, No Throat pain, No Throat swelling, No Other Cardiovascular: No Chest Pain, No Palpitations, No Orthopnea, No Paroxysmal Noc. Dyspnea, No Edema, No Lt Headedness, No Other Respiratory: No Cough, No Dry, No Shortness of breath, No SOB with excertion, No Wheezing, No Hemoptysis, No Pleuritic Pain, No Sputum, No Other Gastrointestinal: No Nausea, No Vomiting, No Abdominal Pain, No Diarrhea, No Constipation, No Melena, No Hematochezia, No Other Genitourinary: No Dysuria, No Frequency, No Incontinence, No Hematuria, No Retention, No Other Musculoskeletal: other (Right great toe pain); No neck pain, No shoulder pain, No arm pain, No back pain, No hand pain, No leg pain, No foot pain Skin: No Rash, No Lesions, No Jaundice, No Bruising, No Other Objective Vitals Vital Signs Date Time Temp Pulse Resp B/P (MAP) Pulse Ox O2 Delivery O2 Flow Rate FiO2 02/08/24 09:13 98.2 75 18 133/78 (96) 98 98.2 02/08/24 08:00 Room Air* 0 21 Intake/Output Intake and Output 02/08/24 07:00 Intake Total 1290 ml Output Total 2300 ml Balance -1010 ml Intake Oral 940 ml IV Total 350 ml Output Urine Total 2300 ml Exam DERMATOLOGIC EXAM: - Skin is dry and cool to the touch dry bilaterally. - Nails 1-5 of the bilateral foot are thickened, discolored, dystrophic, and tender to palpate with subungual debris - Hair loss noted to bilateral feet - significantly cellulitis and swelling to the right hallux with purulent drainage VASCULAR EXAM: - DP and PT pulses are palpable bilaterally. - DIRECTOR TELEVISION is brisk to all digits. - Feet are cool to touch compared to lower legs bilaterally. NEUROLOGIC EXAM: - Normal light touch sensation to the superficial peroneal, deep peroneal, sural, saphenous, and tibial nerve branches. - Protective sensation is diminished as tested with a 5.07 10g [place]Bettye bilaterally. MUSCULOSKELETAL EXAM: - No gross deformities - Muscle strength is 5/5 and active motion is pain-free and symmetrical bilaterally - No pain or crepitation with passive range of motion bilaterally to all major pedal joints Medications Current Medications Medications Dose Ordered Sig/Linden Route Start Time Stop Time Status Last Admin Dose Admin Sodium Chloride 1,000 ml @ 60 mls/hr [id number] IV 02/06/24 11:15 02/07/24 04:00 60 MLS/HR Acetaminophen/ Hydrocodone Bitart 1 tab Q4HP PRN PO 02/06/24 11:15 02/07/24 12:59 1 TAB Ondansetron HCl 4 mg Q4HP PRN IV 02/06/24 11:15 02/06/24 20:59 4 MG Docusate Sodium 100 mg BIDPRN PRN PO 02/06/24 11:15 Acetaminophen 650 mg Q6HP PRN PO 02/06/24 11:15 02/07/24 02:00 650 MG Morphine Sulfate 2 mg Q4HPRN PRN IV 02/06/24 11:15 02/06/24 21:01 2 MG Vancomycin HCl 0 ml @ 0 mls/hr UD IV 02/06/24 11:30 Nitroglycerin 0.4 mg Q5MINP PRN SL 02/06/24 11:45 Morphine Sulfate 2 mg Q30M PRN IV 02/06/24 11:45 Vancomycin HCl 250 ml @ 200 mls/hr Q12H IV 02/07/24 01:00 02/08/24 01:11 200 MLS/HR Mupirocin 1 applic BID EACHNOSTRI 02/07/24 22:00 02/12/24 21:59 02/07/24 22:23 1 APPLIC Piperacillin Sod/ Tazobactam Sod 100 ml @ 25 mls/hr Q6H IV 02/07/24 16:00 02/08/24 04:03 25 MLS/HR Laboratory Results Laboratory Tests 02/07/24 04:54 Coagulation Test 02/08/24 10:00 Prothrombin Time 11.4 sec (9.3-11.8) Prothrombin Time INR 1.08 (0.9-1.15) Activated Partial Thromboplast Time 27.9 SEC (24.5-34.5) Urinalysis Test 02/06/24 09:00 Urine Color Yellow (Yellow) Urine Clarity Clear (Clear) Urine pH 6.5 (5.0-9.0) Urine Specific [place] 1.037 (1.001-1.035) Urine Protein 1+ (Negative) H Urine Ketones 3+ (Negative) H Urine Blood Negative /uL (Negative) Urine Nitrite Negative (Negative) Urine Bilirubin Negative (Negative) Urine Urobilinogen Over mg/dL (Negative) Urine Leukocyte Esterase Negative /uL (Negative) Urine RBC 11 /hpf (0 - 3) Urine WBC 1 /hpf (0 - 3) Urine Squamous Epithelial Cells Few /hpf (<5) Urine Bacteria None seen /hpf (None Seen) Urine Mucus Few (None Seen) Urine Glucose Normal mg/dL (Normal) Microbiology Microbiology Date/Time Source Procedure Growth Status 02/07/24 04:40 Nose MRSA Screen - Final Methicillin Resistant S.aureus Complete 02/06/24 12:47 Blood Blood Culture - Preliminary NO GROWTH AFTER 48 HOURS OF INCUBATION. Resulted Assessment/Plan Assessment/Plan ASSESSMENT: Patient is a 28-year-old male who presents to clinic for right hallux cellulitis PLAN: - The patients chart was reviewed, clinical findings were discussed with the patient, the etiologies of the conditions were discussed in detail, and a treatment plan was agreed to at this time, with both oral and written instructions provided. - discussed with the patient that with the swelling and erythema that we need to take him to the lower perform an I&D - patient will be NPO since midnight - continue IV antibiotics - we will get cultures in the OR - with all off on any advanced imaging at this point All questions were answered and concerns addressed to the patient's satisfaction. The patient was given the phone number to the clinic and was told how to make contact with the clinic should any concerns or questions arise. Patient understands that if any questions or concerns arise prior to the next appointment, we should be contacted immediately. FOLLOW-UP: Continue to follow while inpatient Plan discussed with: Patient My Orders Orders - JORGE L COLEMAN DPM Procedure Category Date Status Time Npo (Nothing By DIET 02/08/24 Transmitted Mouth) Diet Breakfast Obtain Consent For: ORDERS 02/08/24 Transmitted 07:31 Problem List: (1) Cellulitis (2) Osteomyelitis (3) Pain of right great toe (4) Other acute osteomyelitis, right ankle and foot (5) Cellulitis of right toe Date of Service: Feb 08, 2024 Billing Provider: OJRGE L COLEMAN DPM Common Visit Codes: [id number] INP/OBS CARE(MOD) JORGE L COLEMAN DPM Feb 08, 2024 13:04
[2024-02-08] MEDS: LIDOCAINE 1% HCL (LOCAL ANESTH.) INJ 20ML MDV ONE (13:16)
[2024-02-08] MEDS: ceFAZolin 1GM/50ML 100 ML IV ONE (13:31)
[2024-02-08] MEDS ORDERED: fentaNYL CITRATE 100 MCG/2 ML VL ONE (14:20)
[2024-02-08] MEDS ORDERED: MIDAZOLAM HCL 2MG/2ML 2ml VIAL (1mg/ml) ONE (14:20)
[2024-02-08] MEDS: LIDOCAINE 1% (LOCAL ANESTH.) PF 5ml SDV IJ ONE (14:24)
[2024-02-08] MEDS ORDERED: DexAMETHasone SOD PHOS 10MG/1ML VIAL INJ ONE (14:34)
[2024-02-08] MEDS ORDERED: PROPOFOL 10 MG/ML 20 ML IV ONE (14:34)
[2024-02-08] MEDS: HYDROmorphone HCL 2 MG/ML VL/or syr ONE (15:41)
[2024-02-08] MEDS: HYDROmorphone HCL 2 MG/ML VL/or syr IV PRN (15:44)
[2024-02-08] MEDS ORDERED: MORPHINE SULFATE 4 MG/ML SYR/VIAL IV PRN (16:00)
[2024-02-08] MEDS ORDERED: ePHEDrine SULFATE 50 MG/ML AMP IV PRN (16:00)
[2024-02-08] MEDS: ONDANSETRON HCL 4 MG/2 ML VIAL IV ONE (16:00)
[2024-02-08] MEDS: KETOROLAC TROMETH 30 MG/ML 1ML VIAL IV ONE (16:00)
[2024-02-08] MEDS ORDERED: hydrALAZINE HCL 20 MG/ML VL IV PRN (16:00)
[2024-02-08] MEDS ORDERED: MIDAZOLAM HCL 2MG/2ML 2ml VIAL (1mg/ml) IV PRN (16:00)
[2024-02-09] MEDS: VANCOMYCIN 1.25GM/250ML 250 ML IV SCH
[2024-02-09 05:00] VITALS: BP 117/78; PULSE 81; RESP 18; TEMP 98.1; O2SAT 100
[2024-02-09 08:28] VITALS: BP 122/85; PULSE 78; RESP 16; TEMP 98.1; O2SAT 98
--- NOTE | 2024-02-09 12:00 | DVHPN2 ---
Reviewed: Care Plan, H&P, Labs, Medications, Previous Orders, Radiology Changes from previous H/P or p: No Changes Eyes: No Pain, No Vision change, No Conjunctivae inflammation, No Eyelid inflammation, No Other, No Redness ENT: No Ear pain, No Ear discharge, No Nose pain, No Nose discharge, No Nose congestion, No Mouth pain, No Mouth swelling, No Throat pain, No Throat swelling, No Other Cardiovascular: No Chest Pain, No Palpitations, No Orthopnea, No Paroxysmal Noc. Dyspnea, No Edema, No Lt Headedness, No Other Respiratory: No Cough, No Dry, No Shortness of breath, No SOB with excertion, No Wheezing, No Hemoptysis, No Pleuritic Pain, No Sputum, No Other Gastrointestinal: No Nausea, No Vomiting, No Abdominal Pain, No Diarrhea, No Constipation, No Melena, No Hematochezia, No Other Genitourinary: No Dysuria, No Frequency, No Incontinence, No Hematuria, No Retention, No Other Musculoskeletal: other (Right great toe pain); No neck pain, No shoulder pain, No arm pain, No back pain, No hand pain, No leg pain, No foot pain Skin: No Rash, No Lesions, No Jaundice, No Bruising, No Other Objective Vitals Vital Signs Date Time Temp Pulse Resp B/P (MAP) Pulse Ox O2 Delivery O2 Flow Rate FiO2 02/09/24 08:28 98.1 78 16 122/85 (97) 98 98.1 02/08/24 20:00 Room Air* 0 21 Intake/Output Intake and Output 02/09/24 07:00 Intake Total 1970 ml Output Total 2275 ml Balance -305 ml Intake Oral 1150 ml IV Total 820 ml Output Urine Total 2275 ml # Bowel Movements 1 Medications Current Medications Medications Dose Ordered Sig/Linden Route Start Time Stop Time Status Last Admin Dose Admin Sodium Chloride 1,000 ml @ 60 mls/hr [id number] IV 02/06/24 11:15 02/09/24 05:55 60 MLS/HR Acetaminophen/ Hydrocodone Bitart 1 tab Q4HP PRN PO 02/06/24 11:15 02/08/24 22:22 1 TAB Ondansetron HCl 4 mg Q4HP PRN IV 02/06/24 11:15 02/06/24 20:59 4 MG Docusate Sodium 100 mg BIDPRN PRN PO 02/06/24 11:15 Acetaminophen 650 mg Q6HP PRN PO 02/06/24 11:15 02/07/24 02:00 650 MG Morphine Sulfate 2 mg Q4HPRN PRN IV 02/06/24 11:15 02/08/24 15:20 2 MG Vancomycin HCl 0 ml @ 0 mls/hr UD IV 02/06/24 11:30 Nitroglycerin 0.4 mg Q5MINP PRN SL 02/06/24 11:45 Morphine Sulfate 2 mg Q30M PRN IV 02/06/24 11:45 Mupirocin 1 applic BID EACHNOSTRI 02/07/24 22:00 02/12/24 21:59 02/08/24 22:24 1 APPLIC Piperacillin Sod/ Tazobactam Sod 100 ml @ 25 mls/hr Q6H IV 02/07/24 16:00 02/09/24 08:42 25 MLS/HR Vancomycin HCl 250 ml @ 200 mls/hr Q8H IV 02/09/24 00:00 02/09/24 08:43 200 MLS/HR Laboratory Results Laboratory Tests 02/07/24 04:54 Urinalysis Test 02/06/24 09:00 Urine Color Yellow (Yellow) Urine Clarity Clear (Clear) Urine pH 6.5 (5.0-9.0) Urine Specific [place] 1.037 (1.001-1.035) Urine Protein 1+ (Negative) H Urine Ketones 3+ (Negative) H Urine Blood Negative /uL (Negative) Urine Nitrite Negative (Negative) Urine Bilirubin Negative (Negative) Urine Urobilinogen Over mg/dL (Negative) Urine Leukocyte Esterase Negative /uL (Negative) Urine RBC 11 /hpf (0 - 3) Urine WBC 1 /hpf (0 - 3) Urine Squamous Epithelial Cells Few /hpf (<5) Urine Bacteria None seen /hpf (None Seen) Urine Mucus Few (None Seen) Urine Glucose Normal mg/dL (Normal) Microbiology Microbiology Date/Time Source Procedure Growth Status 02/08/24 14:28 Foot Right Gram Stain Pending Resulted 02/08/24 14:28 Foot Right Anaerobic Culture - Preliminary Resulted 02/08/24 14:28 Foot Right Aerobic Culture - Preliminary Resulted 02/06/24 12:47 Blood Blood Culture - Preliminary NO GROWTH AFTER 48 HOURS OF INCUBATION. Resulted Labs and/or images reviewed: Labs reviewed by me, Image(s) reviewed by me Assessment/Plan Assessment/Plan Sepsis secondary to cellulitis right foot Acute osteomyelitis and abscess right 1st toe: Vancomycin Zosyn consult for podiatry Dr. Momin appreciated, status post incision and drainage of the abscess Hearing impaired Plan discussed with: Patient My Orders Orders - AYO CERDA MD Procedure Category Date Status Time Regular Diet DIET 02/08/24 Transmitted Dinner Date of Service: Feb 09, 2024 Billing Provider: AYO CERDA MD Common Visit Codes: [id number] INP/OBS CARE(HIGH) AYO CERDA MD Feb 09, 2024 12:00
--- NOTE | 2024-02-09 12:10 | DVHPN2 ---
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 Patient reports symptoms progressively get worse with redness, swollen, difficulty sleeping due to excessive pain, getting worse that prompted this visit. Patient has a small abrasion on the top of the great toe <1cm in diameter, no drainage. toenail partially attached on the right great toe. Patient was seen and evaluated in the ED, laboratory data shows elevated WBC 18.6, platelets 249, sodium 135, potassium 3.9, BUN 10, creatinine 0 seven seven, glucose 103, CRP 7.37, uric acid 5.4, total bilirubin 1.4, blood pressure 148/98, rate 92, temperature 98.2 F, O2 saturation 99% room. Right foot CT revealing diffuse soft tissue swelling/cellulitis, 2nd toe ulceration and questionable developing acute osteomyelitis of the underlying lateral distal phalangeal head. Patient was started on IV antibiotic regimen Zosyn, please see medication orders section in the computer. On my assessment, patient denies chest pain, no headache, no dizziness, no nausea, no vomiting, no fever, no chills. Patient was admitted for further evaluation and medical management Reviewed: Care Plan, H&P, Labs, Medications, Previous Orders, Radiology Changes from previous H/P or p: No Changes Eyes: No Pain, No Vision change, No Conjunctivae inflammation, No Eyelid inflammation, No Other, No Redness ENT: No Ear pain, No Ear discharge, No Nose pain, No Nose discharge, No Nose congestion, No Mouth pain, No Mouth swelling, No Throat pain, No Throat swelling, No Other Cardiovascular: No Chest Pain, No Palpitations, No Orthopnea, No Paroxysmal Noc. Dyspnea, No Edema, No Lt Headedness, No Other Respiratory: No Cough, No Dry, No Shortness of breath, No SOB with excertion, No Wheezing, No Hemoptysis, No Pleuritic Pain, No Sputum, No Other Gastrointestinal: No Nausea, No Vomiting, No Abdominal Pain, No Diarrhea, No Constipation, No Melena, No Hematochezia, No Other Genitourinary: No Dysuria, No Frequency, No Incontinence, No Hematuria, No Retention, No Other Musculoskeletal: other (Right great toe pain); No neck pain, No shoulder pain, No arm pain, No back pain, No hand pain, No leg pain, No foot pain Skin: No Rash, No Lesions, No Jaundice, No Bruising, No Other Objective Vitals Vital Signs Date Time Temp Pulse Resp B/P (MAP) Pulse Ox O2 Delivery O2 Flow Rate FiO2 02/09/24 08:28 98.1 78 16 122/85 (97) 98 98.1 02/08/24 20:00 Room Air* 0 21 Intake/Output Intake and Output 02/09/24 07:00 Intake Total 1970 ml Output Total 2275 ml Balance -305 ml Intake Oral 1150 ml IV Total 820 ml Output Urine Total 2275 ml # Bowel Movements 1 Exam DERMATOLOGIC EXAM: - Skin is dry and cool to the touch dry bilaterally. - Nails 1-5 of the bilateral foot are thickened, discolored, dystrophic, and tender to palpate with subungual debris - Hair loss noted to bilateral feet - significantly cellulitis and swelling to the right hallux with purulent drainage VASCULAR EXAM: - DP and PT pulses are palpable bilaterally. 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 - Feet are cool to touch compared to lower legs bilaterally. NEUROLOGIC EXAM: - Normal light touch sensation to the superficial peroneal, deep peroneal, sural, saphenous, and tibial nerve branches. - Protective sensation is diminished as tested with a 5.07 10g [place] bilaterally. MUSCULOSKELETAL EXAM: - No gross deformities - Muscle strength is 5/5 and active motion is pain-free and symmetrical bilaterally - No pain or crepitation with passive range of motion bilaterally to all major pedal joints Medications Current Medications Medications Dose Ordered Sig/Linden Route Start Time Stop Time Status Last Admin Dose Admin Sodium Chloride 1,000 ml @ 60 mls/hr [id number] IV 02/06/24 11:15 02/09/24 05:55 60 MLS/HR Acetaminophen/ Hydrocodone Bitart 1 tab Q4HP PRN PO 02/06/24 11:15 02/08/24 22:22 1 TAB Ondansetron HCl 4 mg Q4HP PRN IV 02/06/24 11:15 02/06/24 20:59 4 MG Docusate Sodium 100 mg BIDPRN PRN PO 02/06/24 11:15 Acetaminophen 650 mg Q6HP PRN PO 02/06/24 11:15 02/07/24 02:00 650 MG Morphine Sulfate 2 mg Q4HPRN PRN IV 02/06/24 11:15 02/08/24 15:20 2 MG Vancomycin HCl 0 ml @ 0 mls/hr UD IV 02/06/24 11:30 Nitroglycerin 0.4 mg Q5MINP PRN SL 02/06/24 11:45 Morphine Sulfate 2 mg Q30M PRN IV 02/06/24 11:45 Mupirocin 1 applic BID EACHNOSTRI 02/07/24 22:00 02/12/24 21:59 02/08/24 22:24 1 APPLIC Piperacillin Sod/ Tazobactam Sod 100 ml @ 25 mls/hr Q6H IV 02/07/24 16:00 02/09/24 08:42 25 MLS/HR Vancomycin HCl 250 ml @ 200 mls/hr Q8H IV 02/09/24 00:00 02/09/24 08:43 200 MLS/HR Laboratory Results Laboratory Tests 02/07/24 04:54 Urinalysis Test 02/06/24 09:00 Urine Color Yellow (Yellow) Urine Clarity Clear (Clear) Urine pH 6.5 (5.0-9.0) Urine Specific [place] 1.037 (1.001-1.035) Urine Protein 1+ (Negative) H Urine Ketones 3+ (Negative) H Urine Blood Negative /uL (Negative) Urine Nitrite Negative (Negative) Urine Bilirubin Negative (Negative) Urine Urobilinogen Over mg/dL (Negative) Urine Leukocyte Esterase Negative /uL (Negative) Urine RBC 11 /hpf (0 - 3) Urine WBC 1 /hpf (0 - 3) Urine Squamous Epithelial Cells Few /hpf (<5) Urine Bacteria None seen /hpf (None Seen) Urine Mucus Few (None Seen) Urine Glucose Normal mg/dL (Normal) Microbiology Microbiology Date/Time Source Procedure Growth Status 02/08/24 14:28 Foot Right Gram Stain Pending Resulted 02/08/24 14:28 Foot Right Anaerobic Culture - Preliminary Resulted 02/08/24 14:28 Foot Right Aerobic Culture - Preliminary Resulted 02/06/24 12:47 Blood Blood Culture - Preliminary NO GROWTH AFTER 48 HOURS OF INCUBATION. Resulted Assessment/Plan Assessment/Plan ASSESSMENT: Patient is a 28-year-old male who presents to clinic status post hallux I&D PLAN: - The patients chart was reviewed, clinical findings were discussed with the patient, the etiologies of the conditions were discussed in detail, and a treatment plan was agreed to at this time, with both oral and written instructions provided. - discussed with the patient that with the swelling and erythema that we need to take him to the lower perform an I&D - performed I&D yesterday which went well - plan to take the patient back to the OR on Monday - patient to be NPO Monday at midnight - we will plan to close the wound then All questions were answered and concerns addressed to the patient's satisfaction. The patient was given the phone number to the clinic and was told how to make contact with the clinic should any concerns or questions arise. Patient understands that if any questions or concerns arise prior to the next appointment, we should be contacted immediately. FOLLOW-UP: Continue to follow while inpatient Plan discussed with: Patient My Orders Orders - JORGE L COLEMAN DPM Procedure Category Date Status Time Anaerobic Culture LY 02/08/24 In Process 14:59 Gram Stain LY 02/08/24 In Process 14:59 Routine Bacterial LY 02/08/24 In Process Culture 14:59 Problem List: (1) Cellulitis (2) Osteomyelitis (3) Pain of right great toe (4) Other acute osteomyelitis, right ankle and foot (5) Cellulitis of right toe Date of Service: Feb 09, 2024 Billing Provider: JORGE L COLEMAN DPM Common Visit Codes: [id number] INP/OBS CARE (MOD) JORGE L COLEMAN DPM Feb 09, 2024 12:10
[2024-02-09 12:56] VITALS: BP 136/91; PULSE 79; RESP 20; TEMP 98.4; O2SAT 97
[2024-02-09 16:57] VITALS: BP 120/80; PULSE 94; RESP 19; TEMP 98.2; O2SAT 98
[2024-02-09 20:00] VITALS: PULSE 92; RESP 16; O2SAT 97
[2024-02-09 21:00] VITALS: BP 135/86; PULSE 92; RESP 20; TEMP 98; O2SAT 98
[2024-02-10] VITALS (7 sets, daily range): BP systolic 107–132; BP diastolic 73–95; PULSE 66–97; RESP 17–20; TEMP 97.7–98.3; O2SAT 90–99
--- NOTE | 2024-02-10 09:41 | DVHPN2 ---
Reviewed: Care Plan, H&P, Labs, Medications, Previous Orders, Radiology Changes from previous H/P or p: No Changes Eyes: No Pain, No Vision change, No Conjunctivae inflammation, No Eyelid inflammation, No Other, No Redness ENT: No Ear pain, No Ear discharge, No Nose pain, No Nose discharge, No Nose congestion, No Mouth pain, No Mouth swelling, No Throat pain, No Throat swelling, No Other Cardiovascular: No Chest Pain, No Palpitations, No Orthopnea, No Paroxysmal Noc. Dyspnea, No Edema, No Lt Headedness, No Other Respiratory: No Cough, No Dry, No Shortness of breath, No SOB with excertion, No Wheezing, No Hemoptysis, No Pleuritic Pain, No Sputum, No Other Gastrointestinal: No Nausea, No Vomiting, No Abdominal Pain, No Diarrhea, No Constipation, No Melena, No Hematochezia, No Other Genitourinary: No Dysuria, No Frequency, No Incontinence, No Hematuria, No Retention, No Other Musculoskeletal: other (Right great toe pain); No neck pain, No shoulder pain, No arm pain, No back pain, No hand pain, No leg pain, No foot pain Skin: No Rash, No Lesions, No Jaundice, No Bruising, No Other Objective Vitals Vital Signs Date Time Temp Pulse Resp B/P (MAP) Pulse Ox O2 Delivery O2 Flow Rate FiO2 02/10/24 09:18 68 18 127/76 02/10/24 05:00 97.7 90 97.7 02/09/24 20:00 Room Air* 0 21 Intake/Output Intake and Output 02/10/24 07:00 Intake Total 2670 ml Output Total 2650 ml Balance 20 ml Intake Oral 1350 ml IV Total 1320 ml Output Urine Total 2650 ml # Bowel Movements 5 Medications Current Medications Medications Dose Ordered Sig/Linden Route Start Time Stop Time Status Last Admin Dose Admin Sodium Chloride 1,000 ml @ 60 mls/hr [id number] IV 02/06/24 11:15 02/10/24 00:39 60 MLS/HR Acetaminophen/ Hydrocodone Bitart 1 tab Q4HP PRN PO 02/06/24 11:15 02/09/24 21:08 1 TAB Ondansetron HCl 4 mg Q4HP PRN IV 02/06/24 11:15 02/06/24 20:59 4 MG Docusate Sodium 100 mg BIDPRN PRN PO 02/06/24 11:15 Acetaminophen 650 mg Q6HP PRN PO 02/06/24 11:15 02/07/24 02:00 650 MG Morphine Sulfate 2 mg Q4HPRN PRN IV 02/06/24 11:15 02/08/24 15:20 2 MG Vancomycin HCl 0 ml @ 0 mls/hr UD IV 02/06/24 11:30 Nitroglycerin 0.4 mg Q5MINP PRN SL 02/06/24 11:45 Morphine Sulfate 2 mg Q30M PRN IV 02/06/24 11:45 Mupirocin 1 applic BID EACHNOSTRI 02/07/24 22:00 02/12/24 21:59 02/10/24 09:20 1 APPLIC Piperacillin Sod/ Tazobactam Sod 100 ml @ 25 mls/hr Q6H IV 02/07/24 16:00 02/10/24 09:20 25 MLS/HR Vancomycin HCl 250 ml @ 200 mls/hr Q8H IV 02/09/24 00:00 02/10/24 09:18 200 MLS/HR Laboratory Results Laboratory Tests 02/07/24 04:54 02/09/24 22:55 Urinalysis Test 02/06/24 09:00 Urine Color Yellow (Yellow) Urine Clarity Clear (Clear) Urine pH 6.5 (5.0-9.0) Urine Specific [place] 1.037 (1.001-1.035) Urine Protein 1+ (Negative) H Urine Ketones 3+ (Negative) H Urine Blood Negative /uL (Negative) Urine Nitrite Negative (Negative) Urine Bilirubin Negative (Negative) Urine Urobilinogen Over mg/dL (Negative) Urine Leukocyte Esterase Negative /uL (Negative) Urine RBC 11 /hpf (0 - 3) Urine WBC 1 /hpf (0 - 3) Urine Squamous Epithelial Cells Few /hpf (<5) Urine Bacteria None seen /hpf (None Seen) Urine Mucus Few (None Seen) Urine Glucose Normal mg/dL (Normal) Microbiology Microbiology Date/Time Source Procedure Growth Status 02/08/24 14:28 Foot Right Gram Stain - Final Resulted 02/08/24 14:28 Foot Right Anaerobic Culture - Preliminary Resulted 02/08/24 14:28 Foot Right Aerobic Culture - Preliminary Resulted 02/06/24 12:47 Blood Blood Culture - Preliminary NO GROWTH AFTER 72 HOURS OF INCUBATION. Resulted Labs and/or images reviewed: Labs reviewed by me, Image(s) reviewed by me Assessment/Plan Assessment/Plan Sepsis secondary to cellulitis right foot Acute osteomyelitis and abscess right 1st toe: Vancomycin Zosyn consult for podiatry Dr. Momin appreciated, status post incision and drainage of the abscess wound cultures result pending Hearing impaired MRSA screen positive: Bactroban nasal ointment Plan discussed with: Patient My Orders Orders - AYO CERDA MD Procedure Category Date Status Time * Picc Line Consult CONS 02/09/24 Transmitted 12:01 Dietary NOTICE 02/09/24 Transmitted Recommendations 15:25 Date of Service: Feb 10, 2024 Billing Provider: AYO CERDA MD Common Visit Codes: [id number] INP/OBS CARE(HIGH) AYO CERDA MD Feb 10, 2024 09:41
--- NOTE | 2024-02-10 15:05 | MEDREC ---
[facility] ASP Intervention Section I [facility] ASP Intervention: Deescalate AB based on CS (WOUND CULTURE FROM RIGHT FOOT SHOWED MRSA ON 02/09. PLEASE CONSIDER DISCONTINUING ZOSYN BASED ON CULTURE RESULT) SHAY CAMERON Feb 10, 2024 15:05
[2024-02-10] MEDS: LIDOCAINE 1% (LOCAL ANESTH.) PF 5ml SDV ID ONE (16:53)
[2024-02-10] MEDS: SODIUM CHLOR 0.9% PF (SALINE LOCK) 10ML VIAL/SYR IV SCH (21:42)
[2024-02-11] VITALS (8 sets, daily range): BP systolic 113–140; BP diastolic 69–85; PULSE 71–104; RESP 14–19; TEMP 98–98.4; O2SAT 96–99
[2024-02-11 06:17] LABS: Basophils # (auto) 0.1 10 ^3/uL (0-0.2); Basophils % (auto) 1.4 % (0.0-2.0); Eosinophils # (auto) 0.2 10 ^3/uL (0-0.8); Eosinophils % (auto) 2.9 % (0.0-7.0); Hematocrit 45.4 % (41.0-53.0); Hemoglobin 15.7 g/dL (13.5-17.5); Lymphocytes # (auto) 1.8 10 ^3/uL (0.4-5.4); Lymphocytes % (auto) 27.8 % (10.0-50.0); Mean Corpuscular Hemoglobin 30.9 pg (28.0-32.0); Mean Corpuscular Hgb Conc. 34.6 g/dL (32.0-36.0); Mean Corpuscular Volume 89.2 fL (80.0-100.0); Monocytes # (auto) 0.7 10 ^3/uL (0-1.3); Monocytes % (auto) 10.5 % (0.0-12.0); Neutrophils # (auto) 3.7 10 ^3/uL (1.6-8.6); Neutrophils % (auto) 57.4 % (37.0-80.0); Nucleated Red Blood Cells % 0.1 %; Platelet Count (auto) 341 10^3/uL (140-450); Red Blood Cells 5.09 10^6/uL (4.5-5.90); Red Cell Distribution Width 13.5 % (11.8-14.3); White Blood Cell 6.5 10^3/uL (4.4-10.8)
--- NOTE | 2024-02-11 11:59 | DVHPN2 ---
Reviewed: Care Plan, H&P, Labs, Medications, Previous Orders, Radiology Changes from previous H/P or p: No Changes Eyes: No Pain, No Vision change, No Conjunctivae inflammation, No Eyelid inflammation, No Other, No Redness ENT: No Ear pain, No Ear discharge, No Nose pain, No Nose discharge, No Nose congestion, No Mouth pain, No Mouth swelling, No Throat pain, No Throat swelling, No Other Cardiovascular: No Chest Pain, No Palpitations, No Orthopnea, No Paroxysmal Noc. Dyspnea, No Edema, No Lt Headedness, No Other Respiratory: No Cough, No Dry, No Shortness of breath, No SOB with excertion, No Wheezing, No Hemoptysis, No Pleuritic Pain, No Sputum, No Other Gastrointestinal: No Nausea, No Vomiting, No Abdominal Pain, No Diarrhea, No Constipation, No Melena, No Hematochezia, No Other Genitourinary: No Dysuria, No Frequency, No Incontinence, No Hematuria, No Retention, No Other Musculoskeletal: other (Right great toe pain); No neck pain, No shoulder pain, No arm pain, No back pain, No hand pain, No leg pain, No foot pain Skin: No Rash, No Lesions, No Jaundice, No Bruising, No Other Objective Vitals Vital Signs Date Time Temp Pulse Resp B/P (MAP) Pulse Ox O2 Delivery O2 Flow Rate FiO2 02/11/24 08:52 98.2 71 18 115/77 (90) 99 98.2 02/10/24 20:00 Room Air* 0 21 Intake/Output Intake and Output 02/11/24 07:00 Intake Total 22485 ml Output Total 2450 ml Balance 7724 ml Intake Oral 1854 ml IV Total 8320 ml Output Urine Total 2450 ml # Bowel Movements 2 Medications Current Medications Medications Dose Ordered Sig/Linden Route Start Time Stop Time Status Last Admin Dose Admin Sodium Chloride 1,000 ml @ 60 mls/hr [id number] IV 02/06/24 11:15 02/11/24 07:55 60 MLS/HR Acetaminophen/ Hydrocodone Bitart 1 tab Q4HP PRN PO 02/06/24 11:15 02/10/24 11:22 1 TAB Ondansetron HCl 4 mg Q4HP PRN IV 02/06/24 11:15 02/06/24 20:59 4 MG Docusate Sodium 100 mg BIDPRN PRN PO 02/06/24 11:15 Acetaminophen 650 mg Q6HP PRN PO 02/06/24 11:15 02/07/24 02:00 650 MG Morphine Sulfate 2 mg Q4HPRN PRN IV 02/06/24 11:15 02/08/24 15:20 2 MG Vancomycin HCl 0 ml @ 0 mls/hr UD IV 02/06/24 11:30 Nitroglycerin 0.4 mg Q5MINP PRN SL 02/06/24 11:45 Morphine Sulfate 2 mg Q30M PRN IV 02/06/24 11:45 Mupirocin 1 applic BID EACHNOSTRI 02/07/24 22:00 02/12/24 21:59 02/11/24 10:00 1 APPLIC Piperacillin Sod/ Tazobactam Sod 100 ml @ 25 mls/hr Q6H IV 02/07/24 16:00 02/11/24 04:07 25 MLS/HR Vancomycin HCl 250 ml @ 200 mls/hr Q8H IV 02/09/24 00:00 02/11/24 08:30 200 MLS/HR Sodium Chloride 10 ml QSHIFT@10,22 IV 02/10/24 22:00 02/11/24 10:00 10 ML Laboratory Results Laboratory Tests 02/07/24 04:54 02/11/24 05:19 Urinalysis Test 02/06/24 09:00 Urine Color Yellow (Yellow) Urine Clarity Clear (Clear) Urine pH 6.5 (5.0-9.0) Urine Specific [place] 1.037 (1.001-1.035) Urine Protein 1+ (Negative) H Urine Ketones 3+ (Negative) H Urine Blood Negative /uL (Negative) Urine Nitrite Negative (Negative) Urine Bilirubin Negative (Negative) Urine Urobilinogen Over mg/dL (Negative) Urine Leukocyte Esterase Negative /uL (Negative) Urine RBC 11 /hpf (0 - 3) Urine WBC 1 /hpf (0 - 3) Urine Squamous Epithelial Cells Few /hpf (<5) Urine Bacteria None seen /hpf (None Seen) Urine Mucus Few (None Seen) Urine Glucose Normal mg/dL (Normal) Microbiology Microbiology Date/Time Source Procedure Growth Status 02/08/24 14:28 Foot Right Gram Stain - Final Resulted 02/08/24 14:28 Foot Right Anaerobic Culture - Preliminary Resulted 02/08/24 14:28 Aerobic Culture - Final Methicillin Resistant S.aureus Resulted 02/06/24 12:47 Blood Blood Culture - Preliminary NO GROWTH AFTER 72 HOURS OF INCUBATION. Resulted Labs and/or images reviewed: Labs reviewed by me, Image(s) reviewed by me Assessment/Plan Assessment/Plan Sepsis secondary to cellulitis right foot Acute osteomyelitis and abscess right 1st toe: Vancomycin Zosyn consult for podiatry Dr. Momin appreciated, status post incision and drainage of the abscess wound cultures showing MRSA, DC Zosyn, continue vancomycin Hearing impaired MRSA screen positive: Bactroban nasal ointment Plan discussed with: Patient, Other (RN) My Orders Orders - AYO CERDA MD Procedure Category Date Status Time Nursing Protocol Picc [facility] 02/10/24 In Process 16:46 Change Dressing Prn [facility] 02/10/24 In Process 16:46 PICC BD 02/10/24 Transmitted 16:46 Sodium Chloride Lock PHA 02/10/24 In Process (Saline Lock Ns) 22:00 Do Not Use Picc For [facility] 02/10/24 In Process Blood Cult 16:46 May Draw Blood From [facility] 02/10/24 In Process Picc 16:46 Ok To Use Picc [facility] 02/10/24 In Process 16:46 Change Picc Dressing [facility] 02/10/24 In Process Q7 Days 16:46 Date of Service: Feb 11, 2024 Billing Provider: AYO CERDA MD Common Visit Codes: [id number] INP/OBS CARE(HIGH) AYO CERDA MD Feb 11, 2024 11:59
[2024-02-12] VITALS (8 sets, daily range): BP systolic 112–135; BP diastolic 69–100; PULSE 70–100; RESP 1–20; TEMP 97.5–98.7; O2SAT 97–100
[2024-02-12 06:23] LABS: Hematocrit 47.5 % (41.0-53.0); Hemoglobin 16.3 g/dL (13.5-17.5); Mean Corpuscular Hemoglobin 30.9 pg (28.0-32.0); Mean Corpuscular Hgb Conc. 34.3 g/dL (32.0-36.0); Platelet Count (auto) 348 10^3/uL (140-450); Red Blood Cells 5.28 10^6/uL (4.5-5.90); Red Cell Distribution Width 13.7 % (11.8-14.3); White Blood Cell 6.2 10^3/uL (4.4-10.8)
[2024-02-12 06:27] LABS: Basophils % (manual) 0 (0.0-2.0); Blast Cells 0; Metamyelocytes % 0; Myelocytes % 0; Promyelocytes % 0; Reactive Lymphocytes 0
[2024-02-12 07:49] LABS: Band Neutrophils % (manual) 11; Eosinophils % (manual) 2 (0-7); Lymphocytes % (manual) 40 (10.0-50.0); Monocytes % (manual) 5 (0-12)
[2024-02-12 07:50] LABS: Platelet Estimate Adequate
--- NOTE | 2024-02-12 08:03 | DVHPN2 ---
Reviewed: Care Plan, H&P, Labs, Medications, Previous Orders, Radiology Changes from previous H/P or p: No Changes Eyes: No Pain, No Vision change, No Conjunctivae inflammation, No Eyelid inflammation, No Other, No Redness ENT: No Ear pain, No Ear discharge, No Nose pain, No Nose discharge, No Nose congestion, No Mouth pain, No Mouth swelling, No Throat pain, No Throat swelling, No Other Cardiovascular: No Chest Pain, No Palpitations, No Orthopnea, No Paroxysmal Noc. Dyspnea, No Edema, No Lt Headedness, No Other Respiratory: No Cough, No Dry, No Shortness of breath, No SOB with excertion, No Wheezing, No Hemoptysis, No Pleuritic Pain, No Sputum, No Other Gastrointestinal: No Nausea, No Vomiting, No Abdominal Pain, No Diarrhea, No Constipation, No Melena, No Hematochezia, No Other Genitourinary: No Dysuria, No Frequency, No Incontinence, No Hematuria, No Retention, No Other Musculoskeletal: other (Right great toe pain); No neck pain, No shoulder pain, No arm pain, No back pain, No hand pain, No leg pain, No foot pain Skin: No Rash, No Lesions, No Jaundice, No Bruising, No Other Objective Vitals Vital Signs Date Time Temp Pulse Resp B/P (MAP) Pulse Ox O2 Delivery O2 Flow Rate FiO2 02/12/24 05:00 98.2 73 1 112/69 (83) 98 98.2 02/11/24 20:00 Room Air* 0 21 Intake/Output Intake and Output 02/12/24 07:00 Intake Total 2840 ml Output Total 2725 ml Balance 115 ml Intake Oral 2840 ml Output Urine Total 2725 ml Medications Current Medications Medications Dose Ordered Sig/[place] Route Start Time Stop Time Status Last Admin Dose Admin Sodium Chloride 1,000 ml @ 60 mls/hr [id number] IV 02/06/24 11:15 02/12/24 06:41 60 MLS/HR Acetaminophen/ Hydrocodone Bitart 1 tab Q4HP PRN PO 02/06/24 11:15 02/10/24 11:22 1 TAB Ondansetron HCl 4 mg Q4HP PRN IV 02/06/24 11:15 02/06/24 20:59 4 MG Docusate Sodium 100 mg BIDPRN PRN PO 02/06/24 11:15 Acetaminophen 650 mg Q6HP PRN PO 02/06/24 11:15 02/07/24 02:00 650 MG Morphine Sulfate 2 mg Q4HPRN PRN IV 02/06/24 11:15 02/08/24 15:20 2 MG Vancomycin HCl 0 ml @ 0 mls/hr UD IV 02/06/24 11:30 Nitroglycerin 0.4 mg Q5MINP PRN SL 02/06/24 11:45 Morphine Sulfate 2 mg Q30M PRN IV 02/06/24 11:45 Mupirocin 1 applic BID EACHNOSTRI 02/07/24 22:00 02/12/24 21:59 02/11/24 23:03 1 APPLIC Vancomycin HCl 250 ml @ 200 mls/hr Q8H IV 02/09/24 00:00 02/11/24 23:07 200 MLS/HR Sodium Chloride 10 ml QSHIFT@,22 IV 02/10/24 22:00 02/11/24 23:03 10 ML Laboratory Results Laboratory Tests 02/07/24 04:54 02/12/24 04:54 Urinalysis Test 02/06/24 09:00 Urine Color Yellow (Yellow) Urine Clarity Clear (Clear) Urine pH 6.5 (5.0-9.0) Urine Specific [place] 1.037 (1.001-1.035) Urine Protein 1+ (Negative) H Urine Ketones 3+ (Negative) H Urine Blood Negative /uL (Negative) Urine Nitrite Negative (Negative) Urine Bilirubin Negative (Negative) Urine Urobilinogen Over mg/dL (Negative) Urine Leukocyte Esterase Negative /uL (Negative) Urine RBC 11 /hpf (0 - 3) Urine WBC 1 /hpf (0 - 3) Urine Squamous Epithelial Cells Few /hpf (<5) Urine Bacteria None seen /hpf (None Seen) Urine Mucus Few (None Seen) Urine Glucose Normal mg/dL (Normal) Microbiology Microbiology Date/Time Source Procedure Growth Status 02/08/24 14:28 Foot Right Gram Stain - Final Resulted 02/08/24 14:28 Foot Right Anaerobic Culture - Preliminary Resulted 02/08/24 14:28 Aerobic Culture - Final Methicillin Resistant S.aureus Resulted 02/06/24 12:47 Blood Blood Culture - Final NO GROWTH AFTER 5 DAYS OF INCUBATION. Complete Labs and/or images reviewed: Labs reviewed by me, Image(s) reviewed by me Assessment/Plan Assessment/Plan Sepsis secondary to cellulitis right foot Acute osteomyelitis and abscess right 1st toe: Vancomycin Zosyn consult for podiatry Dr. Momin appreciated, status post incision and drainage of the abscess wound cultures showing MRSA, DC Zosyn, continue vancomycin Hearing impaired MRSA screen positive: Bactroban nasal ointment ID consult placed for Dr. Rao for alternate for IV antibiotics as medical does not cover home health IV antibiotics. Awaiting clearance for discharge from field marketing coordinator Dr. Momin Plan discussed with: Patient My Orders Orders - AYO CERDA MD Procedure Category Date Status Time * Infectious [place]- CONS 02/12/24 Transmitted Maira 07:49 *Podiatry Consult CONS 02/12/24 Transmitted Liliane([facility]) 07:56 Date of Service: Feb 12, 2024 Billing Provider: AYO CERDA MD Common Visit Codes: [id number] INP/OBS CARE(HIGH) AYO CERDA MD Feb 12, 2024 08:03
--- NOTE | 2024-02-12 09:08 | DVHOP2 ---
Operative Report - 2 Report Details Date: 02/08/24 Preop Diagnosis: 1. Right hallux abscess 2. Right hallux cellulitis 3. Right hallux wound Postop Diagnosis: Same as preop Surgeon: Jorge L Coleman MD Anesthesiologist: See anesthesia Anesthesia: Mac Consent: The patient was informed of the risks and benefits of the procedure. These include but are not limited to complications of anesthesia, postoperative infection, incomplete relief of symptoms, recurrence of symptoms, damage to blood vessels, nerves and tendons, deep venous thrombosis, pulmonary embolism and possible need for repeat surgery in the future. Complications: None Estimated Blood Loss: Minimal Fluids: See anesthesia Findings: Proximally 4 cc of purulent drainage Indications for Surgery: Worsening right foot wound Name of Procedure Performed 1. Right foot I&D to bone (11027) Procedure Details Procedure Details: PRE-PROCEDURE INFORMATION: In the pre-op holding area, the extremity to be operated on was clearly marked and the patient verified correct laterality of the marking. The patient was transferred to the OR table and placed in a supine position. A timeout was performed in which identification of the correct patient, procedure, location, and materials was done. The right foot and leg were prepped and draped in normal sterile fashion. DESCRIPTION OF PROCEDURE: Attention was directed to the right hallux where area of fluctuance was noted. An incision was made over this area and was deepened through blunt dissection. The incision was deepened to the level of abscess and bone. Care was taken to the dissection to avoid any neurovascular and tendinous structures. The incision was deepened to the fascia in the right hallux was identified. The abscess appeared to be purulent fluid consistent with pus, 5 c c. After the abscess was drained, the area was irrigated with 3 L normal saline using cysto tubing. Deep cultures were then obtained from the right hallux. The area was then inspected and any areas of tracking, especially along the tendons were also drained. The wound was packed with Betadine-soaked gauze and we will need to be closed at a later date. A dry sterile dressing was placed on the surgical extremity. The patient was placed in a postop shoe POSTOPERATIVE INFORMATION: The patient tolerated the above noted procedure and anesthesia well and was transferred to the PACU with vital signs stable, and vascular status intact with capillary refill intact to all digits. Patient will return to the floor for IV antibiotics and take him back on Monday for closure. Condition Good Disposition Still a Patient JORGE L COLEMAN DPM Feb 12, 2024 09:08
[2024-02-12] MEDS: BUPIVACAINE 0.5% P/F INJ 10 ML VIAL ONE (11:08)
[2024-02-12] MEDS: BUPIVACAINE 0.25% INJ 50ML VIAL ONE (11:10)
[2024-02-12] MEDS ORDERED: PROPOFOL 10 MG/ML 20 ML IV ONE (12:32)
[2024-02-12] MEDS ORDERED: KETAMINE 50mg/ML 1ml syringe ONE (12:32)
[2024-02-12] MEDS ORDERED: SODIUM CHLORIDE LOCK 10 ML ONE (12:32)
[2024-02-12] MEDS ORDERED: MIDAZOLAM HCL 2MG/2ML 2ml VIAL (1mg/ml) ONE (12:32)
[2024-02-12] MEDS ORDERED: fentaNYL CITRATE 100 MCG/2 ML VL ONE (12:32)
[2024-02-12] MEDS ORDERED: ONDANSETRON HCL 4 MG/2 ML VIAL ONE (12:33)
[2024-02-12] MEDS: VANCOMYCIN HCL 1000 MG VL ONE (12:46)
[2024-02-12] MEDS: BUPIVACAINE 0.25% INJ 50ML VIAL IJ ONE (12:52)
--- NOTE | 2024-02-12 13:10 | DVHPN2 ---
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 Patient reports symptoms progressively get worse with redness, swollen, difficulty sleeping due to excessive pain, getting worse that prompted this visit. Patient has a small abrasion on the top of the great toe <1cm in diameter, no drainage. toenail partially attached on the right great toe. Patient was seen and evaluated in the ED, laboratory data shows elevated WBC 18.6, platelets 249, sodium 135, potassium 3.9, BUN 10, creatinine 0 seven seven, glucose 103, CRP 7.37, uric acid 5.4, total bilirubin 1.4, blood pressure 148/98, rate 92, temperature 98.2 F, O2 saturation 99% room. Right foot CT revealing diffuse soft tissue swelling/cellulitis, 2nd toe ulceration and questionable developing acute osteomyelitis of the underlying lateral distal phalangeal head. Patient was started on IV antibiotic regimen Zosyn, please see medication orders section in the computer. On my assessment, patient denies chest pain, no headache, no dizziness, no nausea, no vomiting, no fever, no chills. Patient was admitted for further evaluation and medical management Reviewed: Care Plan, H&P, Labs, Medications, Previous Orders, Radiology Changes from previous H/P or p: No Changes Eyes: No Pain, No Vision change, No Conjunctivae inflammation, No Eyelid inflammation, No Other, No Redness ENT: No Ear pain, No Ear discharge, No Nose pain, No Nose discharge, No Nose congestion, No Mouth pain, No Mouth swelling, No Throat pain, No Throat swelling, No Other Cardiovascular: No Chest Pain, No Palpitations, No Orthopnea, No Paroxysmal Noc. Dyspnea, No Edema, No Lt Headedness, No Other Respiratory: No Cough, No Dry, No Shortness of breath, No SOB with excertion, No Wheezing, No Hemoptysis, No Pleuritic Pain, No Sputum, No Other Gastrointestinal: No Nausea, No Vomiting, No Abdominal Pain, No Diarrhea, No Constipation, No Melena, No Hematochezia, No Other Genitourinary: No Dysuria, No Frequency, No Incontinence, No Hematuria, No Retention, No Other Musculoskeletal: other (Right great toe pain); No neck pain, No shoulder pain, No arm pain, No back pain, No hand pain, No leg pain, No foot pain Skin: No Rash, No Lesions, No Jaundice, No Bruising, No Other Objective Vitals Vital Signs Date Time Temp Pulse Resp B/P (MAP) Pulse Ox O2 Delivery O2 Flow Rate FiO2 02/12/24 08:00 97.5 98 18 118/100 (106) 100 97.5 02/11/24 20:00 Room Air* 0 21 Intake/Output Intake and Output 02/12/24 07:00 Intake Total 2840 ml Output Total 2725 ml Balance 115 ml Intake Oral 2840 ml Output Urine Total 2725 ml Exam DERMATOLOGIC EXAM: - Skin is dry and cool to the touch dry bilaterally. - Nails 1-5 of the bilateral foot are thickened, discolored, dystrophic, and tender to palpate with subungual debris - Hair loss noted to bilateral feet - significantly cellulitis and swelling to the right hallux with purulent drainage VASCULAR EXAM: - DP and PT pulses are palpable bilaterally. - TRIBAL DELEGATE is brisk to all digits. - Feet are cool to touch compared to lower legs bilaterally. NEUROLOGIC EXAM: - Normal light touch sensation to the superficial peroneal, deep peroneal, sural, saphenous, and tibial nerve branches. - Protective sensation is diminished as tested with a 5.07 10g Bly-Bettye bilaterally. MUSCULOSKELETAL EXAM: - No gross deformities - Muscle strength is 5/5 and active motion is pain-free and symmetrical bilaterally - No pain or crepitation with passive range of motion bilaterally to all major pedal joints Medications Current Medications Medications Dose Ordered Sig/Lind[place] Route Start Time Stop Time Status Last Admin Dose Admin Sodium Chloride 1,000 ml @ 60 mls/hr [id number] IV 02/06/24 11:15 02/12/24 06:41 60 MLS/HR Acetaminophen/ Hydrocodone Bitart 1 tab Q4HP PRN PO 02/06/24 11:15 02/10/24 11:22 1 TAB Ondansetron HCl 4 mg Q4HP PRN IV 02/06/24 11:15 02/06/24 20:59 4 MG Docusate Sodium 100 mg BIDPRN PRN PO 02/06/24 11:15 Acetaminophen 650 mg Q6HP PRN PO 02/06/24 11:15 02/07/24 02:00 650 MG Morphine Sulfate 2 mg Q4HPRN PRN IV 02/06/24 11:15 02/08/24 15:20 2 MG Vancomycin HCl 0 ml @ 0 mls/hr UD IV 02/06/24 11:30 Nitroglycerin 0.4 mg Q5MINP PRN SL 02/06/24 11:45 Morphine Sulfate 2 mg Q30M PRN IV 02/06/24 11:45 Mupirocin 1 applic BID EACHNOSTRI 02/07/24 22:00 02/12/24 21:59 02/12/24 11:41 1 APPLIC Vancomycin HCl 250 ml @ 200 mls/hr Q8H IV 02/09/24 00:00 02/12/24 11:40 200 MLS/HR Sodium Chloride 10 ml QSHIFT@ IV 02/10/24 22:00 02/12/24 11:41 10 ML Laboratory Results Laboratory Tests 02/07/24 04:54 02/12/24 04:54 Urinalysis Test 02/06/24 09:00 Urine Color Yellow (Yellow) Urine Clarity Clear (Clear) Urine pH 6.5 (5.0-9.0) Urine Specific [place] 1.037 (1.001-1.035) Urine Protein 1+ (Negative) H Urine Ketones 3+ (Negative) H Urine Blood Negative /uL (Negative) Urine Nitrite Negative (Negative) Urine Bilirubin Negative (Negative) Urine Urobilinogen Over mg/dL (Negative) Urine Leukocyte Esterase Negative /uL (Negative) Urine RBC 11 /hpf (0 - 3) Urine WBC 1 /hpf (0 - 3) Urine Squamous Epithelial Cells Few /hpf (<5) Urine Bacteria None seen /hpf (None Seen) Urine Mucus Few (None Seen) Urine Glucose Normal mg/dL (Normal) Microbiology Microbiology Date/Time Source Procedure Growth Status 02/08/24 14:28 Foot Right Gram Stain - Final Resulted 02/08/24 14:28 Foot Right Anaerobic Culture - Preliminary Resulted 02/08/24 14:28 Aerobic Culture - Final Methicillin Resistant S.aureus Resulted 02/06/24 12:47 Blood Blood Culture - Final NO GROWTH AFTER 5 DAYS OF INCUBATION. Complete Assessment/Plan Assessment/Plan ASSESSMENT: Patient is a 28-year-old male who presents to clinic status post hallux I&D PLAN: - The patients chart was reviewed, clinical findings were discussed with the patient, the etiologies of the conditions were discussed in detail, and a treatment plan was agreed to at this time, with both oral and written instructions provided. - discussed with the patient that with the swelling and erythema that we need to take him to the lower perform an I&D - performed I&D yesterday which went well - plan to take the patient back to the OR today - patient NPO since midnight - we will plan to close the wound today All questions were answered and concerns addressed to the patient's satisfaction. The patient was given the phone number to the clinic and was told how to make contact with the clinic should any concerns or questions arise. Patient understands that if any questions or concerns arise prior to the next appointment, we should be contacted immediately. FOLLOW-UP: Continue to follow while inpatient Plan discussed with: Patient My Orders Orders - JORGE L COLEMAN DPM Procedure Category Date Status Time Npo (Nothing By DIET 02/12/24 Transmitted Mouth) Diet Breakfast Npo Except For EMANUEL 02/12/24 In Process Medications 09:02 Obtain Consent For: ORDERS 02/12/24 Transmitted 09:03 Problem List: (1) Cellulitis (2) Osteomyelitis (3) Pain of right great toe (4) Other acute osteomyelitis, right ankle and foot (5) Cellulitis of right toe Date of Service: Feb 12, 2024 Billing Provider: JORGE L COLEMAN DPM Common Visit Codes: [id number] INP/OBS CARE(MOD) JORGE L COLEMAN DPM Feb 12, 2024 13:10
--- NOTE | 2024-02-12 13:16 | DVHOP2 ---
Operative Report - 2 Report Details Date: 02/12/24 Preop Diagnosis: 1. Right hallux abscess 2. Right hallux cellulitis 3. Right hallux wound Postop Diagnosis: Same as preop Surgeon: Jorge L Coleman MD Anesthesiologist: See anesthesia Anesthesia: Mac Consent: The patient was informed of the risks and benefits of the procedure. These include but are not limited to complications of anesthesia, postoperative infection, incomplete relief of symptoms, recurrence of symptoms, damage to blood vessels, nerves and tendons, deep venous thrombosis, pulmonary embolism and possible need for repeat surgery in the future. Complications: None Estimated Blood Loss: Minimal Fluids: See anesthesia Findings: Consistent with diagnosis Indications for Surgery: Worsening right foot wound Name of Procedure Performed 1. Right foot I&D to bone (22553) 2. Right foot delayed closure (57406) Procedure Details Procedure Details: PRE-PROCEDURE INFORMATION: In the pre-op holding area, the extremity to be operated on was clearly marked and the patient verified correct laterality of the marking. The patient was transferred to the OR table and placed in a supine position. A timeout was performed in which identification of the correct patient, procedure, location, and materials was done. The right foot and leg were prepped and draped in normal sterile fashion. DESCRIPTION OF PROCEDURE: Attention was directed to the right hallux where area of fluctuance was noted. An incision was made over this area and was deepened through blunt dissection. The incision was deepened to the level of abscess and bone. Care was taken to the dissection to avoid any neurovascular and tendinous structures. The incision was deepened to the fascia in the right hallux was identified. The abscess appeared to be purulent fluid consistent with pus, 2 cc. After the abscess was drained, the area was irrigated with 3 L normal saline using cysto tubing. A delayed closure was then performed with 2-0 nylon. A dry sterile dressing was placed on the surgical extremity. The patient was placed in a postop shoe POSTOPERATIVE INFORMATION: The patient tolerated the above noted procedure and anesthesia well and was transferred to the PACU with vital signs stable, and vascular status intact with capillary refill intact to all digits. Patient will return to the floor, patient can be discharged when deemed medically appropriate. Patient can weightbear as tolerated in his postoperative shoe. Patient will follow up with me in a week to have dressing change in the check the wound.. Condition Good Disposition Still a Patient JORGE L COLEMAN DPM Feb 12, 2024 13:16
--- NOTE | 2024-02-12 13:36 | DVHINCON2 ---
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 Patient reports symptoms progressively get worse with redness, swollen, difficulty sleeping due to excessive pain, getting worse that prompted this visit. Patient has a small abrasion on the top of the great toe <1cm in diameter, no drainage. toenail partially attached on the right great toe. Patient was seen and evaluated in the ED, laboratory data shows elevated WBC 18.6, platelets 249, sodium 135, potassium 3.9, BUN 10, creatinine 0 seven seven, glucose 103, CRP 7.37, uric acid 5.4, total bilirubin 1.4, blood pressure 148/98, rate 92, temperature 98.2 F, O2 saturation 99% room. Right foot CT revealing diffuse soft tissue swelling/cellulitis, 2nd toe ulceration and questionable developing acute osteomyelitis of the underlying lateral distal phalangeal head. Patient was started on IV antibiotic regimen Zosyn, please see medication orders section in the computer. On my assessment, patient denies chest pain, no headache, no dizziness, no nausea, no vomiting, no fever, no chills. Patient was admitted for further evaluation and medical management Past Medical History Past Medical History Denies past medical history Past Surgical History Past Surgical History Denies all surgeries Family History: Patient reports no known family medical history. Family History Family History Reviewed, noncontributory to the management of this case. Social History Past Social History The patient lives at home, denies smoking, alcohol or illicit drugs abuse. Allergies: Coded Allergies: NO KNOWN ALLERGIES (Unverified , 02/06/24) Home Meds No Active Prescriptions or Reported Meds Review of Systems Constitutional: No: Fever, Chills, Sweats, Weakness, Malaise, Other Eyes: No: Pain, Vision change, Conjunctivae inflammation, Eyelid inflammation, Other, Redness ENT: No: Ear pain, Ear discharge, Nose pain, Nose discharge, Nose congestion, Mouth pain, Mouth swelling, Throat pain, Throat swelling, Other Respiratory: No: Cough, Dry, Shortness of breath, SOB with excertion, Wheezing, Hemoptysis, Pleuritic Pain, Sputum, Wheezing, Other Cardiovascular: No: Chest Pain, Palpitations, Orthopnea, Paroxysmal Noc. Dyspnea, Edema, Lt Headedness, Other Gastrointestinal: No: Nausea, Vomiting, Abdominal Pain, Diarrhea, Constipation, Melena, Hematochezia, Other Genitourinary: No Dysuria, No Frequency, No Incontinence, No Hematuria, No Retention, No Other Musculoskeletal: other (Right great toe pain); No: neck pain, shoulder pain, arm pain, back pain, hand pain, leg pain, foot pain Skin: No: Rash, Lesions, Jaundice, Bruising, Other Neurological: No: Weakness, Numbness, Incoordination, Change in speech, Confusion, Seizures, Other Vital Signs Vital Signs Date Time Temp Pulse Resp B/P (MAP) Pulse Ox O2 Delivery O2 Flow Rate FiO2 02/12/24 08:00 97.5 98 18 118/100 (106) 100 97.5 02/11/24 20:00 Room Air* 0 21 Physical Exam General Appearance: Alert, Oriented X3, Cooperative, No acute distress HEENT: Atraumatic, PERRLA, EOMI, Mucous membr. moist/pink Respiratory: Clear to auscultation, Normal air movement Cardiovascular: Regular rate, Normal S1, Normal S2, No murmurs Abdominal: Normal bowel sounds, Soft, No tenderness, No hepatospenomegaly, No masses Extremities: No clubbing, No cyanosis, No edema, Normal pulses, Other (Right great toe tenderness/swelling) Skin: No rashes, No breakdown, No significant lesion Neuro: Normal gait, Normal speech, Strength at 5/5 X4 ext, Normal tone, Sensation intact, Cranial nerves 3-12 NL, Reflexes 2+ Psych/Mental Status: Mental status NL, Mood NL Labs/Diagnostic Data Labs Test 02/12/24 04:54 02/11/24 15:37 02/11/24 05:19 02/08/24 10:00 Range/Units White Blood Count 6.2 4.4-10.8 10^3/uL Red Blood Count 5.28 4.5-5.90 10^6/uL Hemoglobin 16.3 13.5-17.5 g/dL Hematocrit 47.5 41.0-53.0 % Mean Corpuscular Volume 90.0 80.0-100.0 fL Mean Corpuscular Hemoglobin 30.9 28.0-32.0 pg Mean Corpuscular Hemoglobin Concent 34.3 32.0-36.0 g/dL Red Cell Distribution Width 13.7 11.8-14.3 % Platelet Count 348 140-450 10^3/uL Mean Platelet Volume 6.8 L 6.9-10.8 fL Neutrophils (%) (Auto) 37.0-80.0 % Lymphocytes (%) (Auto) 10.0-50.0 % Monocytes (%) (Auto) 0.0-12.0 % Basophils (%) (Auto) 0.0-2.0 % Neutrophils # (Auto) 1.6-8.6 10 ^3/uL Lymphocytes # (Auto) 0.4-5.4 10 ^3/uL Monocytes # (Auto) 0-1.3 10 ^3/uL Differential Total Cells Counted 100.0 100 Neutrophils % (Manual) 42 37.0-80.0 Band Neutrophils % (Manual) 11 Lymphocytes % (Manual) 40 10.0-50.0 Monocytes % (Manual) 5 0-12 Eosinophils % (Manual) 2 0-7 Basophils % (Manual) 0 0.0-2.0 Metamyelocytes % (manual) 0 Myelocytes % (Manual) 0 Promyelocytes % (Manual) 0 Blast Cells % (Manual) 0 Reactive Lymphocytes 0 Platelet Estimate Adequate Creatinine 0.80 0.700-1.30 mg/dL Glomerular Filtration Rate Calc 124 >90 mL/min Vancomycin Level Trough 17.3 H 5-10 ug/mL Eosinophils (%) (Auto) 2.9 0.0-7.0 % Eosinophils # (Auto) 0.2 0-0.8 10 ^3/uL Basophils # (Auto) 0.1 0-0.2 10 ^3/uL Nucleated Red Blood Cells 0.1 % Prothrombin Time 11.4 9.3-11.8 sec Prothrombin Time INR 1.08 0.9-1.15 Activated Partial Thromboplast Time 27.9 24.5-34.5 SEC Test 02/07/24 04:54 02/06/24 09:00 02/06/24 08:50 Range/Units Sodium Level 137 136-145 mmol/L Potassium Level 3.9 3.5-5.1 mmol/L Chloride Level 104 98-107 mmol/L Carbon Dioxide Level 27 20-31 mmol/L Anion Gap 6 5-15 Blood Urea Nitrogen 8 L 9-23 mg/dL BUN/Creatinine Ratio 9.4 L 10.0-20.0 Serum Glucose 110 H 74-106 mg/dL Calcium Level 9.7 8.7-10.4 mg/dL Total Bilirubin 0.8 0.2-1.0 mg/dL Aspartate Amino Transferase (AST) 17 13-40 U/L Alanine Aminotransferase (ALT) 31 7-40 U/L Alkaline Phosphatase 154 H 46-116 U/L Total Protein 7.1 5.7-8.2 g/dL Albumin 4.4 3.2-4.8 g/dL Urine Color Yellow Yellow Urine Clarity Clear Clear Urine pH 6.5 5.0-9.0 Urine Specific [place] 1.037 H 1.001-1.035 Urine Protein 1+ H Negative Urine Ketones 3+ H Negative Urine Blood Negative Negative /uL Urine Nitrite Negative Negative Urine Bilirubin Negative Negative Urine Urobilinogen Over Negative mg/dL Urine Leukocyte Esterase Negative Negative /uL Urine RBC 11 0 - 3 /hpf Urine WBC 1 0 - 3 /hpf Urine Squamous Epithelial Cells Few <5 /hpf Urine Bacteria None seen None Seen /hpf Urine Mucus Few None Seen Urine Glucose Normal Normal mg/dL Uric Acid 5.4 3.7-9.2 mg/dL C-Reactive Protein High Sensitivity 7.37 H <1.0 mg/dL Microbiology Date/Time Source Procedure Growth Status 02/08/24 14:28 Foot Right Gram Stain - Final Resulted 02/08/24 14:28 Foot Right Anaerobic Culture - Preliminary Resulted 02/08/24 14:28 Aerobic Culture - Final Methicillin Resistant S.aureus Resulted 02/06/24 12:47 Blood Blood Culture - Final NO GROWTH AFTER 5 DAYS OF INCUBATION. Complete Assessment Assessment Osteomyelitis Cellulitis of right toe Pain of right great toe Other acute osteomyelitis, right ankle and foot FREDDY WILSON MD Feb 12, 2024 13:36
--- NOTE | 2024-02-12 19:52 | DVHINCON2 ---
Date of service: Feb 12, 2024 Family History: Patient reports no known family medical history. Allergies: Coded Allergies: NO KNOWN ALLERGIES (Unverified , 02/06/24) Home Meds No Active Prescriptions or Reported Meds Vital Signs Vital Signs Date Time Temp Pulse Resp B/P (MAP) Pulse Ox O2 Delivery O2 Flow Rate FiO2 02/12/24 16:00 97.9 70 18 128/71 (90) 99 97.9 02/12/24 13:10 Mask 5.0 02/12/24 13:10 77 Labs/Diagnostic Data Labs Test 02/12/24 04:54 02/11/24 15:37 02/11/24 05:19 02/08/24 10:00 Range/Units White Blood Count 6.2 4.4-10.8 10^3/uL Red Blood Count 5.28 4.5-5.90 10^6/uL Hemoglobin 16.3 13.5-17.5 g/dL Hematocrit 47.5 41.0-53.0 % Mean Corpuscular Volume 90.0 80.0-100.0 fL Mean Corpuscular Hemoglobin 30.9 28.0-32.0 pg Mean Corpuscular Hemoglobin Concent 34.3 32.0-36.0 g/dL Red Cell Distribution Width 13.7 11.8-14.3 % Platelet Count 348 140-450 10^3/uL Mean Platelet Volume 6.8 L 6.9-10.8 fL Neutrophils (%) (Auto) 37.0-80.0 % Lymphocytes (%) (Auto) 10.0-50.0 % Monocytes (%) (Auto) 0.0-12.0 % Basophils (%) (Auto) 0.0-2.0 % Neutrophils # (Auto) 1.6-8.6 10 ^3/uL Lymphocytes # (Auto) 0.4-5.4 10 ^3/uL Monocytes # (Auto) 0-1.3 10 ^3/uL Differential Total Cells Counted 100.0 100 Neutrophils % (Manual) 42 37.0-80.0 Band Neutrophils % (Manual) 11 Lymphocytes % (Manual) 40 10.0-50.0 Monocytes % (Manual) 5 0-12 Eosinophils % (Manual) 2 0-7 Basophils % (Manual) 0 0.0-2.0 Metamyelocytes % (manual) 0 Myelocytes % (Manual) 0 Promyelocytes % (Manual) 0 Blast Cells % (Manual) 0 Reactive Lymphocytes 0 Platelet Estimate Adequate Creatinine 0.80 0.700-1.30 mg/dL Glomerular Filtration Rate Calc 124 >90 mL/min Vancomycin Level Trough 17.3 H 5-10 ug/mL Eosinophils (%) (Auto) 2.9 0.0-7.0 % Eosinophils # (Auto) 0.2 0-0.8 10 ^3/uL Basophils # (Auto) 0.1 0-0.2 10 ^3/uL Nucleated Red Blood Cells 0.1 % Prothrombin Time 11.4 9.3-11.8 sec Prothrombin Time INR 1.08 0.9-1.15 Activated Partial Thromboplast Time 27.9 24.5-34.5 SEC Test 02/07/24 04:54 02/06/24 09:00 02/06/24 08:50 Range/Units Sodium Level 137 136-145 mmol/L Potassium Level 3.9 3.5-5.1 mmol/L Chloride Level 104 98-107 mmol/L Carbon Dioxide Level 27 20-31 mmol/L Anion Gap 6 5-15 Blood Urea Nitrogen 8 L 9-23 mg/dL BUN/Creatinine Ratio 9.4 L 10.0-20.0 Serum Glucose 110 H 74-106 mg/dL Calcium Level 9.7 8.7-10.4 mg/dL Total Bilirubin 0.8 0.2-1.0 mg/dL Aspartate Amino Transferase (AST) 17 13-40 U/L Alanine Aminotransferase (ALT) 31 7-40 U/L Alkaline Phosphatase 154 H 46-116 U/L Total Protein 7.1 5.7-8.2 g/dL Albumin 4.4 3.2-4.8 g/dL Urine Color Yellow Yellow Urine Clarity Clear Clear Urine pH 6.5 5.0-9.0 Urine Specific [place] 1.037 H 1.001-1.035 Urine Protein 1+ H Negative Urine Ketones 3+ H Negative Urine Blood Negative Negative /uL Urine Nitrite Negative Negative Urine Bilirubin Negative Negative Urine Urobilinogen Over Negative mg/dL Urine Leukocyte Esterase Negative Negative /uL Urine RBC 11 0 - 3 /hpf Urine WBC 1 0 - 3 /hpf Urine Squamous Epithelial Cells Few <5 /hpf Urine Bacteria None seen None Seen /hpf Urine Mucus Few None Seen Urine Glucose Normal Normal mg/dL Uric Acid 5.4 3.7-9.2 mg/dL C-Reactive Protein High Sensitivity 7.37 H <1.0 mg/dL Microbiology Date/Time Source Procedure Growth Status 02/08/24 14:28 Foot Right Gram Stain - Final Resulted 02/08/24 14:28 Foot Right Anaerobic Culture - Preliminary Resulted 02/08/24 14:28 Aerobic Culture - Final Methicillin Resistant S.aureus Resulted 02/06/24 12:47 Blood Blood Culture - Final NO GROWTH AFTER 5 DAYS OF INCUBATION. Complete Problems(with codes): (1) Cellulitis (2) Osteomyelitis (3) Pain of right great toe (4) Other acute osteomyelitis, right ankle and foot (5) Cellulitis of right toe Plan/Recommendation ASSESSMENT AND PLAN: ID Problem List: - Deaf, hard of hearing - Sepsis related to right great toe abscess - Right great toe abscess - Right great toe cellulitis - Right great toe osteomyelitis Assessment This is a 28 y.o. male with no significant past medical history, who presents with right great toe pain, swelling, and difficulty sleeping due to excessive pain. The condition began with an abrasion on the top of his great toe related to a hangnail. On admission, labs showed leukocytosis with WBC 18.6, platelets 249, sodium 135, BUN 10, creatinine 0.77, uric acid 5.4. Vital signs: BP 148/98, HR 92, Temp 98.2F, SpO2 99% on room air. Imaging of the right foot showed soft tissue swelling and cellulitis secondary to ulceration, with questionable developing acute osteomyelitis of the underlying lateral distal phalangeal head. The patient was started empirically on vancomycin and Zosyn (piperacillin-tazobactam). Zosyn was stopped because superficial cultures were positive only for MRSA. On 02/12/2024, the patient underwent surgical debridement, which removed several cc's of pus and an abscess extending to the bone. The patient appears to be improving on vancomycin monotherapy. His WBC is now 6.2, platelets 348. No fevers or chills after surgical debridement. He has bloody drainage from his toe, well-contained within the bandage. Plan: - Continue vancomycin and start ceftriaxone while inpatient. - Do not rely on superficial cultures to reduce antibiotic coverage at this time, given the location of the infection. - Follow up on deep tissue cultures. If deep tissue cultures are negative for gram-negative organisms, reasonable to stop ceftriaxone at that time. - Oral antibiotics sufficient to cover osteomyelitis would include levofloxacin 750 mg daily and clindamycin 300 mg four times daily for six weeks. - Follow up in the Infectious Disease clinic in 46 weeks to determine if additional antibiotics are needed. - Continue wound care as outpatient. - Will follow up on blood cultures. Isolation Precautions: Standard Assessment and plan was discussed with the patient as written above Plan is subject to change pending incorporation of new incoming information/diagnostics. Updates may be added as addendum at the bottom (OR TOP) of this note Thank you for interesting consult. ID will continue to follow. Please contact Infectious Disease for any questions or concerns. Sunitha Flores M.D. [facility] Ph: ? History: The patient's chart and medications were reviewed in detail and the patient was seen and examined. History obtained from: patient Romero Penny is a 28 y.o. male with no significant past medical history, who presents with right great toe pain, swelling, and difficulty sleeping due to excessive pain. The condition began with an abrasion on the top of his great toe related to a hangnail. Review of Systems: A complete 10 system review of systems was completed and negative except as noted in the HPI or here. ROS: - CONSTITUTIONAL: Denies weight loss, fever, and chills. - HEENT: Denies changes in vision and hearing. - RESPIRATORY: Denies SOB and cough. - CV: Denies palpitations and chest pain. - GI: Denies abdominal pain, nausea, vomiting, and diarrhea. - : Denies dysuria and urinary frequency. - MSK: Reports right great toe pain. - SKIN: Reports swelling and redness of right great toe. - NEUROLOGICAL: Denies headache and syncope. - PSYCHIATRIC: Denies recent changes in mood. Denies anxiety and depression. Past Medical History: No significant past medical history. Past Surgical History: History reviewed. No pertinent surgical history. Home Medications: Prior to Admission medications No home medications on file. Allergies: Allergies No Known Allergies Family History: Family History No relevant family history on file. Social History: Social History Socioeconomic History Marital status: Not on file Number of children: Not on file Years of education: Not on file Highest education level: Not on file Occupational History Not on file Tobacco Use Smoking status: Never Substance and Sexual Activity Alcohol use: Never Drug use: Never Sexual activity: Not on file Other Topics Concern Not on file Social History Narrative Lives at home Social Determinants of Health Financial Resource Strain: Not on file Food Insecurity: Not on file Transportation Needs: Not on file Physical Activity: Not on file Stress: Not on file Social Connections: Not on file Intimate Partner Violence: Not on file Objective: Vital Signs on Arrival: Temp: 98.2F (36.8C)?BP: 148/98?Pulse: 92?Resp: 16?SpO?: 99% on room air Most Recent Vital Signs: Temp: 98.2F?BP: 148/98?Pulse: 92?Resp: 16?SpO?: 99% on room air Admission Weight: Weight: Not provided?BMI: Not provided Physical Exam: General:?NAD Neck:?Supple. No masses. HEENT:?PERRL. Normal lids and conjunctiva. Moist mucous membranes. Oropharynx without lesions, exudates, or excessive erythema. Normal appearance of the external aspects of the nose and ears. Heart:?Regular rhythm, normal rate. No murmur. No lower extremity edema. Lungs:?Normal respiratory effort. Clear to auscultation bilaterally. No wheezes. No crackles. Abdomen:?Soft. Non-tender. Non-distended. No masses or abdominal hernia. Msk:?No digital cyanosis. Normal strength and tone in all 4 limbs. Right great toe with redness, swelling on the lateral head, deep tissue ulcer with purulent drainage. Skin:?Warm and dry. Right great toe with redness, swelling, deep tissue ulcer with purulent drainage. Neuro:?Alert. No facial droop or slurred speech. Extra-ocular movements intact. Sensation intact to soft touch in all 4 limbs. Psych:?Appropriate mood. Full affect. Oriented to person, place, time, and situation. Lines: Active Lines Peripheral IV Line (details not provided) Diagnostic Studies: Available diagnostic studies were reviewed personally. Significant relevant results and findings are outlined below or addressed in the Assessment and Plan above. Pertinent Labs: WBC: Initial 18.6, now 6.2 Platelets: Initial 249, now 348 Sodium: 135 BUN: 10 Creatinine: 0.77 Uric Acid: 5.4 Pertinent Imaging: CT of Right Foot Impression: - Soft tissue swelling and cellulitis secondary to ulceration. - Questionable developing acute osteomyelitis of the underlying lateral distal phalangeal head. Plan discussed with: Patient SUNITHA FLORES MD Feb 12, 2024 19:52
[2024-02-13] VITALS (9 sets, daily range): BP systolic 112–142; BP diastolic 59–90; PULSE 68–96; RESP 16–19; TEMP 97.8–99; O2SAT 95–99
--- NOTE | 2024-02-13 08:07 | DVHPN2 ---
Reviewed: Care Plan, H&P, Labs, Medications, Previous Orders, Radiology Changes from previous H/P or p: No Changes Eyes: No Pain, No Vision change, No Conjunctivae inflammation, No Eyelid inflammation, No Other, No Redness ENT: No Ear pain, No Ear discharge, No Nose pain, No Nose discharge, No Nose congestion, No Mouth pain, No Mouth swelling, No Throat pain, No Throat swelling, No Other Cardiovascular: No Chest Pain, No Palpitations, No Orthopnea, No Paroxysmal Noc. Dyspnea, No Edema, No Lt Headedness, No Other Respiratory: No Cough, No Dry, No Shortness of breath, No SOB with excertion, No Wheezing, No Hemoptysis, No Pleuritic Pain, No Sputum, No Other Gastrointestinal: No Nausea, No Vomiting, No Abdominal Pain, No Diarrhea, No Constipation, No Melena, No Hematochezia, No Other Genitourinary: No Dysuria, No Frequency, No Incontinence, No Hematuria, No Retention, No Other Musculoskeletal: other (Right great toe pain); No neck pain, No shoulder pain, No arm pain, No back pain, No hand pain, No leg pain, No foot pain Skin: No Rash, No Lesions, No Jaundice, No Bruising, No Other Objective Vitals Vital Signs Date Time Temp Pulse Resp B/P (MAP) Pulse Ox O2 Delivery O2 Flow Rate FiO2 02/13/24 05:00 98.2 68 17 112/59 (76) 99 98.2 02/12/24 20:00 Room Air* 0 21 Intake/Output Intake and Output 02/13/24 07:00 Intake Total 2610 ml Output Total 800 ml Balance 1810 ml Intake Oral 940 ml IV Total 1670 ml Output Urine Total 800 ml # Voids 2 # Bowel Movements 1 Medications Current Medications Medications Dose Ordered Sig/Linden Route Start Time Stop Time Status Last Admin Dose Admin Sodium Chloride 1,000 ml @ 60 mls/hr [id number] IV 02/06/24 11:15 02/12/24 18:33 60 MLS/HR Acetaminophen/ Hydrocodone Bitart 1 tab Q4HP PRN PO 02/06/24 11:15 02/10/24 11:22 1 TAB Ondansetron HCl 4 mg Q4HP PRN IV 02/06/24 11:15 02/06/24 20:59 4 MG Docusate Sodium 100 mg BIDPRN PRN PO 02/06/24 11:15 Acetaminophen 650 mg Q6HP PRN PO 02/06/24 11:15 02/07/24 02:00 650 MG Morphine Sulfate 2 mg Q4HPRN PRN IV 02/06/24 11:15 02/08/24 15:20 2 MG Vancomycin HCl 0 ml @ 0 mls/hr UD IV 02/06/24 11:30 Nitroglycerin 0.4 mg Q5MINP PRN SL 02/06/24 11:45 Morphine Sulfate 2 mg Q30M PRN IV 02/06/24 11:45 Vancomycin HCl 250 ml @ 200 mls/hr Q8H IV 02/09/24 00:00 02/13/24 00:29 200 MLS/HR Sodium Chloride 10 ml QSHIFT@10,22 IV 02/10/24 22:00 02/12/24 21:29 10 ML Laboratory Results Laboratory Tests 02/07/24 04:54 02/12/24 04:54 Urinalysis Test 02/06/24 09:00 Urine Color Yellow (Yellow) Urine Clarity Clear (Clear) Urine pH 6.5 (5.0-9.0) Urine Specific [place] 1.037 (1.001-1.035) Urine Protein 1+ (Negative) H Urine Ketones 3+ (Negative) H Urine Blood Negative /uL (Negative) Urine Nitrite Negative (Negative) Urine Bilirubin Negative (Negative) Urine Urobilinogen Over mg/dL (Negative) Urine Leukocyte Esterase Negative /uL (Negative) Urine RBC 11 /hpf (0 - 3) Urine WBC 1 /hpf (0 - 3) Urine Squamous Epithelial Cells Few /hpf (<5) Urine Bacteria None seen /hpf (None Seen) Urine Mucus Few (None Seen) Urine Glucose Normal mg/dL (Normal) Microbiology Microbiology Date/Time Source Procedure Growth Status 02/08/24 14:28 Foot Right Gram Stain - Final Resulted 02/08/24 14:28 Foot Right Anaerobic Culture - Preliminary Resulted 02/08/24 14:28 Aerobic Culture - Final Methicillin Resistant S.aureus Resulted 02/06/24 12:47 Blood Blood Culture - Final NO GROWTH AFTER 5 DAYS OF INCUBATION. Complete Labs and/or images reviewed: Labs reviewed by me, Image(s) reviewed by me Assessment/Plan Assessment/Plan Sepsis secondary to cellulitis right foot Acute osteomyelitis and abscess right 1st toe: Vancomycin Zosyn consult for podiatry Dr. Momin appreciated, status post incision and drainage of the abscess wound cultures showing MRSA, DC Zosyn, continue vancomycin Hearing impaired MRSA screen positive: Bactroban nasal ointment ID consult placed for Dr. Rao for alternate for IV antibiotics as medical does not cover home health IV antibiotics. Status post I&D to bone and right foot delayed closure by [employer] erp architect Dr. Momin on 02/12/2024 Awaiting recommendation from the Infectious Disease doctor for recommendation for outpatient antibiotic Plan discussed with: Patient My Orders Orders - AYO CERDA MD Procedure Category Date Status Time * Infectious Sonali- CONS 02/12/24 Transmitted Dari 08:15 * Infectious Sonali- CONS 02/12/24 Transmitted Maira 15:12 Date of Service: Feb 13, 2024 Billing Provider: AYO CERDA MD Common Visit Codes: [id number] INP/OBS CARE(HIGH) AYO CERDA MD Feb 13, 2024 08:07
--- NOTE | 2024-02-13 09:37 | DVHPN2 ---
Progress Note - Dictate Date Seen: Feb 13, 2024 Subjective Patient was seen and evaluated at bedside. He is awake and alert, laying in bed. No S/S of distress/SOB or pain. Vitals reviewed. Antibiotic status: Vancomycin - [Started 02/05 - Ongoing] Culture history: 02/05: Blood culture: No growth monitored. 02/06: MRSA screening: Positive 02/07: Aerobic culture: MRSA Foot x-ray: 02/05: Diffuse soft tissue swelling/ cellulitis, 2nd toe ulceration and questionable developing acute osteomyelitis of the underlying lateral distal phalangeal head. Recommend clinical and biochemical correlation and if indicated further evaluation with MRI. vital signs Vital Sign Date Time Temp Pulse Resp B/P (MAP) Pulse Ox O2 Delivery O2 Flow Rate FiO2 02/13/24 05:00 98.2 68 17 112/59 (76) 99 98.2 02/12/24 20:00 Room Air* 0 21 Total Intake and Output 02/12/24 02/12/24 02/13/24 15:00 23:00 07:00 Intake Total 650 ml 1160 ml 800 ml Output Total 800 ml Balance 650 ml 1160 ml 0 ml medications Current Medications Medications Dose Ordered Sig/Linden Route Start Time Stop Time Status Last Admin Dose Admin Sodium Chloride 1,000 ml @ 60 mls/hr [id number] IV 02/06/24 11:15 02/12/24 18:33 60 MLS/HR Acetaminophen/ Hydrocodone Bitart 1 tab Q4HP PRN PO 02/06/24 11:15 02/10/24 11:22 1 TAB Ondansetron HCl 4 mg Q4HP PRN IV 02/06/24 11:15 02/06/24 20:59 4 MG Docusate Sodium 100 mg BIDPRN PRN PO 02/06/24 11:15 Acetaminophen 650 mg Q6HP PRN PO 02/06/24 11:15 02/07/24 02:00 650 MG Morphine Sulfate 2 mg Q4HPRN PRN IV 02/06/24 11:15 02/08/24 15:20 2 MG Vancomycin HCl 0 ml @ 0 mls/hr UD IV 02/06/24 11:30 Nitroglycerin 0.4 mg Q5MINP PRN SL 02/06/24 11:45 Morphine Sulfate 2 mg Q30M PRN IV 02/06/24 11:45 Vancomycin HCl 250 ml @ 200 mls/hr Q8H IV 02/09/24 00:00 02/13/24 00:29 200 MLS/HR Sodium Chloride 10 ml QSHIFT@10,22 IV 02/10/24 22:00 02/12/24 21:29 10 ML objective General Appearance: Alert, Oriented X3, Cooperative, No acute distress HEENT: Atraumatic, PERRLA, EOMI, Mucous membr. moist/pink Respiratory: Clear to auscultation, Normal air movement Cardiovascular: Regular rate, Normal S1, Normal S2, No murmurs Abdominal: Normal bowel sounds, Soft, No tenderness, No hepatospenomegaly, No masses Extremities: No clubbing, No cyanosis, No edema, Normal pulses, Other (Right great toe tenderness/swelling) Skin: No rashes, No breakdown, No significant lesion Neuro: Normal gait, Normal speech, Strength at 5/5 X4 ext, Normal tone, Sensation intact, Cranial nerves 3-12 NL, Reflexes 2+ Psych/Mental Status: Mental status NL, Mood NL laboratory and microbiology Laboratory Tests 02/12/24 04:54 02/07/24 04:54 Test 02/07/24 04:54 Range/Units Serum Glucose 110 H 74-106 mg/dL Assessment/Plan Patient is 73-year-old male presented to the hospital with: Osteomyelitis Cellulitis of right toe Pain of right great toe Other acute osteomyelitis, right ankle and foot Recommendations: Thank you for consult. Dietary Evaluation Review Comments: Consider Gaudencio BID for healing, monitor PO intake to meet 75% of his needs Expected Outcomes/Goals: maintain weight, healed wounds FREDDY WILSON MD Feb 13, 2024 09:37
[2024-02-14] VITALS (8 sets, daily range): BP systolic 115–129; BP diastolic 67–89; PULSE 75–89; RESP 16–18; TEMP 98.3–98.7; O2SAT 96–99
[2024-02-14] MEDS: cefTRIAXone 2GM/50ML D5W 50 ML IV SCH (09:05)
--- NOTE | 2024-02-14 09:37 | DVHPN2 ---
Reviewed: Care Plan, H&P, Labs, Medications, Previous Orders, Radiology Changes from previous H/P or p: No Changes Eyes: No Pain, No Vision change, No Conjunctivae inflammation, No Eyelid inflammation, No Other, No Redness ENT: No Ear pain, No Ear discharge, No Nose pain, No Nose discharge, No Nose congestion, No Mouth pain, No Mouth swelling, No Throat pain, No Throat swelling, No Other Cardiovascular: No Chest Pain, No Palpitations, No Orthopnea, No Paroxysmal Noc. Dyspnea, No Edema, No Lt Headedness, No Other Respiratory: No Cough, No Dry, No Shortness of breath, No SOB with excertion, No Wheezing, No Hemoptysis, No Pleuritic Pain, No Sputum, No Other Gastrointestinal: No Nausea, No Vomiting, No Abdominal Pain, No Diarrhea, No Constipation, No Melena, No Hematochezia, No Other Genitourinary: No Dysuria, No Frequency, No Incontinence, No Hematuria, No Retention, No Other Musculoskeletal: other (Right great toe pain); No neck pain, No shoulder pain, No arm pain, No back pain, No hand pain, No leg pain, No foot pain Skin: No Rash, No Lesions, No Jaundice, No Bruising, No Other Objective Vitals Vital Signs Date Time Temp Pulse Resp B/P (MAP) Pulse Ox O2 Delivery O2 Flow Rate FiO2 02/14/24 05:00 98.3 75 18 115/77 (90) 99 98.3 02/13/24 20:00 Room Air* 0 21 Intake/Output Intake and Output 02/14/24 07:00 Intake Total 2780 ml Output Total 420 ml Balance 2360 ml Intake Oral 1400 ml IV Total 1380 ml Output Urine Total 420 ml # Voids 5 # Bowel Movements 2 Medications Current Medications Medications Dose Ordered Sig/Linden Route Start Time Stop Time Status Last Admin Dose Admin Sodium Chloride 1,000 ml @ 60 mls/hr [id number] IV 02/06/24 11:15 02/14/24 00:05 60 MLS/HR Acetaminophen/ Hydrocodone Bitart 1 tab Q4HP PRN PO 02/06/24 11:15 02/10/24 11:22 1 TAB Ondansetron HCl 4 mg Q4HP PRN IV 02/06/24 11:15 02/06/24 20:59 4 MG Docusate Sodium 100 mg BIDPRN PRN PO 02/06/24 11:15 Acetaminophen 650 mg Q6HP PRN PO 02/06/24 11:15 02/07/24 02:00 650 MG Morphine Sulfate 2 mg Q4HPRN PRN IV 02/06/24 11:15 02/08/24 15:20 2 MG Vancomycin HCl 0 ml @ 0 mls/hr UD IV 02/06/24 11:30 Nitroglycerin 0.4 mg Q5MINP PRN SL 02/06/24 11:45 Morphine Sulfate 2 mg Q30M PRN IV 02/06/24 11:45 Vancomycin HCl 250 ml @ 200 mls/hr Q8H IV 02/09/24 00:00 02/14/24 00:06 200 MLS/HR Sodium Chloride 10 ml QSHIFT@ IV 02/10/24 22:00 02/14/24 09:05 10 ML Ceftriaxone Sodium/Dextrose 50 ml @ 50 mls/hr DAILY IV 02/14/24 10:00 02/14/24 09:05 50 MLS/HR Ceftriaxone Sodium/Dextrose 50 ml @ 50 mls/hr DAILY IV 02/14/24 10:00 Cancel Laboratory Results Laboratory Tests 02/07/24 04:54 02/12/24 04:54 Urinalysis Test 02/06/24 09:00 Urine Color Yellow (Yellow) Urine Clarity Clear (Clear) Urine pH 6.5 (5.0-9.0) Urine Specific [place] 1.037 (1.001-1.035) Urine Protein 1+ (Negative) H Urine Ketones 3+ (Negative) H Urine Blood Negative /uL (Negative) Urine Nitrite Negative (Negative) Urine Bilirubin Negative (Negative) Urine Urobilinogen Over mg/dL (Negative) Urine Leukocyte Esterase Negative /uL (Negative) Urine RBC 11 /hpf (0 - 3) Urine WBC 1 /hpf (0 - 3) Urine Squamous Epithelial Cells Few /hpf (<5) Urine Bacteria None seen /hpf (None Seen) Urine Mucus Few (None Seen) Urine Glucose Normal mg/dL (Normal) Microbiology Microbiology Date/Time Source Procedure Growth Status 02/08/24 14:28 Foot Right Gram Stain - Final Complete 02/08/24 14:28 Foot Right Anaerobic Culture - Final Complete 02/08/24 14:28 Aerobic Culture - Final Methicillin Resistant S.aureus Complete 02/06/24 12:47 Blood Blood Culture - Final NO GROWTH AFTER 5 DAYS OF INCUBATION. Complete Labs and/or images reviewed: Labs reviewed by me, Image(s) reviewed by me Assessment/Plan Assessment/Plan Sepsis secondary to cellulitis right foot Acute osteomyelitis and abscess right 1st toe: Vancomycin consult for podiatry Dr. Momin appreciated, status post incision and drainage of the abscess wound cultures showing MRSA, continue vancomycin, Rocephin added Hearing impaired MRSA screen positive: Bactroban nasal ointment Deep tissue wound cultures from the wound positive for MRSA sensitive to clindamycin ID consult by Dr. Alfonso Flores appreciated, advised to continue vancomycin and added Rocephin while in the hospital, advised levofloxacin 750 mg daily and clindamycin 300 mg four times daily for six weeks at the time of discharge. Status post I&D to bone and right foot delayed closure by mat tester Dr. Momin on 02/12/2024 Plan discussed with: Patient Date of Service: Feb 14, 2024 Billing Provider: AOY CERDA MD Common Visit Codes: [id number] INP/OBS CARE(HIGH) AYO CERDA MD Feb 14, 2024 09:37
[2024-02-14] MEDS ORDERED: cefTRIAXone 2GM/50ML D5W 50 ML IV SCH (10:00)
--- NOTE | 2024-02-14 21:59 | DVHPN2 ---
Consult Progress Note Date Seen: Feb 14, 2024 Subjective Patient reports: Other (his foot is hurting a little bit after surgery but bleeding has stopped and bandaged well at the toe level. discussed plan of care with mother ) Objective vital signs Vital Sign Date Time Temp Pulse Resp B/P (MAP) Pulse Ox O2 Delivery O2 Flow Rate FiO2 02/14/24 21:00 98.5 87 17 124/77 (93) 96 98.5 02/14/24 08:30 Room Air* 0 21 Total Intake and Output 02/13/24 02/13/24 02/14/24 15:00 23:00 07:00 Intake Total 250 ml 1250 ml 1280 ml Output Total 420 ml Balance 250 ml 1250 ml 860 ml medications Current Medications Medications Dose Ordered Sig/Linden Route Start Time Stop Time Status Last Admin Dose Admin Sodium Chloride 1,000 ml @ 60 mls/hr [id number] IV 02/06/24 11:15 02/14/24 21:42 60 MLS/HR Acetaminophen/ Hydrocodone Bitart 1 tab Q4HP PRN PO 02/06/24 11:15 02/10/24 11:22 1 TAB Ondansetron HCl 4 mg Q4HP PRN IV 02/06/24 11:15 02/06/24 20:59 4 MG Docusate Sodium 100 mg BIDPRN PRN PO 02/06/24 11:15 Acetaminophen 650 mg Q6HP PRN PO 02/06/24 11:15 02/07/24 02:00 650 MG Morphine Sulfate 2 mg Q4HPRN PRN IV 02/06/24 11:15 02/08/24 15:20 2 MG Vancomycin HCl 0 ml @ 0 mls/hr UD IV 02/06/24 11:30 Nitroglycerin 0.4 mg Q5MINP PRN SL 02/06/24 11:45 Morphine Sulfate 2 mg Q30M PRN IV 02/06/24 11:45 Sodium Chloride 10 ml QSHIFT@10,22 IV 02/10/24 22:00 02/14/24 21:42 10 ML Ceftriaxone Sodium/Dextrose 50 ml @ 50 mls/hr DAILY IV 02/14/24 10:00 Cancel Physical Exam: General:?NAD Neck:?Supple. No masses. HEENT:?PERRL. Normal lids and conjunctiva. Moist mucous membranes. Oropharynx without lesions, exudates, or excessive erythema. Normal appearance of the external aspects of the nose and ears. Heart:?Regular rhythm, normal rate. No murmur. No lower extremity edema. Lungs:?Normal respiratory effort. Clear to auscultation bilaterally. No wheezes. No crackles. Abdomen:?Soft. Non-tender. Non-distended. No masses or abdominal hernia. Msk:?No digital cyanosis. Normal strength and tone in all 4 limbs. Right great toe with redness, swelling on the lateral head, deep tissue ulcer with purulent drainage. Skin:?Warm and dry. Right great toe with redness, swelling, deep tissue ulcer with purulent drainage. Neuro:?Alert. No facial droop or slurred speech. Extra-ocular movements intact. Sensation intact to soft touch in all 4 limbs. Psych:?Appropriate mood. Full affect. Oriented to person, place, time, and situation. laboratory and microbiology Laboratory Tests 02/12/24 04:54 02/07/24 04:54 Test 02/07/24 04:54 Range/Units Serum Glucose 110 H 74-106 mg/dL Problem List/Assessment/Plan Problems(with codes): (1) Cellulitis (2) Osteomyelitis (3) Pain of right great toe (4) Other acute osteomyelitis, right ankle and foot (5) Cellulitis of right toe Problem List/Assessment/Plan ID Problem List: - Deaf, hard of hearing - Sepsis related to right great toe abscess - Right great toe abscess - Right great toe cellulitis - Right great toe osteomyelitis Assessment This is a 28 y.o. male with no significant past medical history, who presents with right great toe pain, swelling, and difficulty sleeping due to excessive pain. The condition began with an abrasion on the top of his great toe related to a hangnail. On admission, labs showed leukocytosis with WBC 18.6, platelets 249, sodium 135, BUN 10, creatinine 0.77, uric acid 5.4. Vital signs: BP 148/98, HR 92, Temp 98.2F, SpO2 99% on room air. Imaging of the right foot showed soft tissue swelling and cellulitis secondary to ulceration, with questionable developing acute osteomyelitis of the underlying lateral distal phalangeal head. The patient was started empirically on vancomycin and Zosyn (piperacillin- tazobactam). Zosyn was stopped because superficial cultures were positive only for MRSA. On 02/12/2024, the patient underwent surgical debridement, which removed several cc's of pus and an abscess extending to the bone. The patient appears to be improving on vancomycin monotherapy. His WBC is now 6.2, platelets 348. No fevers or chills after surgical debridement. He has bloody drainage from his toe, well-contained within the bandage. 02/13: operative cultures are growing MRSA Plan: - Continue vancomycin - stop ceftriaxone - Do not rely on superficial cultures to reduce antibiotic coverage at this time, given the location of the infection. - Oral antibiotics sufficient to cover osteomyelitis would include clindamycin 300 mg four times daily for six weeks upon discharge - Follow up in the Infectious Disease clinic in 46 weeks to determine if additional antibiotics are needed. - Continue wound care as outpatient. - Will follow up on blood cultures. Plan discussed with: Other Dietary Evaluation Review Comments: Consider Gaudencio BID for healing, monitor PO intake to meet 75% of his needs Expected Outcomes/Goals: maintain weight, healed wounds SUNITHA VELAZCO MD Feb 14, 2024 21:59
[2024-02-15] VITALS (8 sets, daily range): BP systolic 121–125; BP diastolic 68–85; PULSE 74–83; RESP 16; TEMP 37.1; O2SAT 96–100
--- NOTE | 2024-02-15 08:36 | DVHPN2 ---
Reviewed: Care Plan, H&P, Labs, Medications, Previous Orders, Radiology Changes from previous H/P or p: No Changes Eyes: No Pain, No Vision change, No Conjunctivae inflammation, No Eyelid inflammation, No Other, No Redness ENT: No Ear pain, No Ear discharge, No Nose pain, No Nose discharge, No Nose congestion, No Mouth pain, No Mouth swelling, No Throat pain, No Throat swelling, No Other Cardiovascular: No Chest Pain, No Palpitations, No Orthopnea, No Paroxysmal Noc. Dyspnea, No Edema, No Lt Headedness, No Other Respiratory: No Cough, No Dry, No Shortness of breath, No SOB with excertion, No Wheezing, No Hemoptysis, No Pleuritic Pain, No Sputum, No Other Gastrointestinal: No Nausea, No Vomiting, No Abdominal Pain, No Diarrhea, No Constipation, No Melena, No Hematochezia, No Other Genitourinary: No Dysuria, No Frequency, No Incontinence, No Hematuria, No Retention, No Other Musculoskeletal: other (Right great toe pain); No neck pain, No shoulder pain, No arm pain, No back pain, No hand pain, No leg pain, No foot pain Skin: No Rash, No Lesions, No Jaundice, No Bruising, No Other Objective Vitals Vital Signs Date Time Temp Pulse Resp B/P (MAP) Pulse Ox O2 Delivery O2 Flow Rate FiO2 02/15/24 05:00 98.2 74 16 123/80 (94) 96 98.2 02/14/24 20:00 Room Air* 0 21 Intake/Output Intake and Output 02/15/24 06:59 Intake Total 1300 ml Output Total 500 ml Balance 800 ml Intake Oral 1250 ml IV Total 50 ml Output Urine Total 500 ml # Bowel Movements 4 Medications Current Medications Medications Dose Ordered Sig/Linden Route Start Time Stop Time Status Last Admin Dose Admin Sodium Chloride 1,000 ml @ 60 mls/hr [id number] IV 02/06/24 11:15 02/14/24 21:42 60 MLS/HR Acetaminophen/ Hydrocodone Bitart 1 tab Q4HP PRN PO 02/06/24 11:15 02/10/24 11:22 1 TAB Ondansetron HCl 4 mg Q4HP PRN IV 02/06/24 11:15 02/06/24 20:59 4 MG Docusate Sodium 100 mg BIDPRN PRN PO 02/06/24 11:15 Acetaminophen 650 mg Q6HP PRN PO 02/06/24 11:15 02/07/24 02:00 650 MG Morphine Sulfate 2 mg Q4HPRN PRN IV 02/06/24 11:15 02/08/24 15:20 2 MG Vancomycin HCl 0 ml @ 0 mls/hr UD IV 02/06/24 11:30 Nitroglycerin 0.4 mg Q5MINP PRN SL 02/06/24 11:45 Morphine Sulfate 2 mg Q30M PRN IV 02/06/24 11:45 Sodium Chloride 10 ml QSHIFT@10,22 IV 02/10/24 22:00 02/14/24 21:42 10 ML Ceftriaxone Sodium/Dextrose 50 ml @ 50 mls/hr DAILY IV 02/14/24 10:00 Cancel Laboratory Results Laboratory Tests 02/07/24 04:54 02/12/24 04:54 Urinalysis Test 02/06/24 09:00 Urine Color Yellow (Yellow) Urine Clarity Clear (Clear) Urine pH 6.5 (5.0-9.0) Urine Specific [place] 1.037 (1.001-1.035) Urine Protein 1+ (Negative) H Urine Ketones 3+ (Negative) H Urine Blood Negative /uL (Negative) Urine Nitrite Negative (Negative) Urine Bilirubin Negative (Negative) Urine Urobilinogen Over mg/dL (Negative) Urine Leukocyte Esterase Negative /uL (Negative) Urine RBC 11 /hpf (0 - 3) Urine WBC 1 /hpf (0 - 3) Urine Squamous Epithelial Cells Few /hpf (<5) Urine Bacteria None seen /hpf (None Seen) Urine Mucus Few (None Seen) Urine Glucose Normal mg/dL (Normal) Microbiology Microbiology Date/Time Source Procedure Growth Status 02/08/24 14:28 Foot Right Gram Stain - Final Complete 02/08/24 14:28 Foot Right Anaerobic Culture - Final Complete 02/08/24 14:28 Aerobic Culture - Final Methicillin Resistant S.aureus Complete 02/06/24 12:47 Blood Blood Culture - Final NO GROWTH AFTER 5 DAYS OF INCUBATION. Complete Labs and/or images reviewed: Labs reviewed by me, Image(s) reviewed by me Assessment/Plan Assessment/Plan Sepsis secondary to cellulitis right foot Acute osteomyelitis and abscess right 1st toe: Vancomycin consult for podiatry Dr. Momin appreciated, status post incision and drainage of the abscess wound cultures showing MRSA, continue vancomycin, Rocephin added Hearing impaired MRSA screen positive: Bactroban nasal ointment Deep tissue wound cultures from the wound positive for MRSA sensitive to clindamycin ID consult by Dr. Alfonso Flores appreciated, advised to continue vancomycin and added Rocephin while in the hospital, advised clindamycin 300 mg p.o. q.i.d. for six weeks on discharge Status post I&D to bone and right foot delayed closure by glass unloading equipment tender Dr. Momin on 02/12/2024 Patient is being discharged home on clindamycin p.o. and he will follow up with discharge clinic and podiatric clinic in one week Plan discussed with: Patient My Orders Orders - AYO CERDA MD Procedure Category Date Status Time * [employer] CONS 02/15/24 Transmitted Consult Schedule For Dc EMANUEL 02/15/24 Verified Clinic F/U 08:31 Date of Service: Feb 15, 2024 Billing Provider: AYO CERDA MD Common Visit Codes: [id number] INP/OBS CARE(HIGH) AYO CERDA MD Feb 15, 2024 08:36
[2024-02-15] MEDS ORDERED: CLIN1CAP70 PO (08:43)
--- NOTE | 2024-02-15 08:43 | DVHDS2 ---
Discharge Summary Date of Admission Feb 06, 2024 at 11:40 Date of Discharge: Feb 15, 2024 Admitting Diagnosis Abscess right 1st toe Wounds: Incision and drainage of the abscess Labs/Diagnostic Data: Laboratory Results Test 02/15/24 04:57 02/14/24 05:04 02/12/24 04:54 02/11/24 05:19 Random Vancomycin Level < 3.0 ug/mL (5-10) Vancomycin Level Trough 25.3 ug/mL (5-10) White Blood Count 6.2 10^3/uL (4.4-10.8) Red Blood Count 5.28 10^6/uL (4.5-5.90) Hemoglobin 16.3 g/dL (13.5-17.5) Hematocrit 47.5 % (41.0-53.0) Mean Corpuscular Volume 90.0 fL (80.0-100.0) Mean Corpuscular Hemoglobin 30.9 pg (28.0-32.0) Mean Corpuscular Hemoglobin Concent 34.3 g/dL (32.0-36.0) Red Cell Distribution Width 13.7 % (11.8-14.3) Platelet Count 348 10^3/uL (140-450) Mean Platelet Volume 6.8 fL (6.9-10.8) Neutrophils (%) (Auto) % (37.0-80.0) Lymphocytes (%) (Auto) % (10.0-50.0) Monocytes (%) (Auto) % (0.0-12.0) Basophils (%) (Auto) % (0.0-2.0) Neutrophils # (Auto) 10 ^3/uL (1.6-8.6) Lymphocytes # (Auto) 10 ^3/uL (0.4-5.4) Monocytes # (Auto) 10 ^3/uL (0-1.3) Differential Total Cells Counted 100.0 (100) Neutrophils % (Manual) 42 (37.0-80.0) Band Neutrophils % (Manual) 11 Lymphocytes % (Manual) 40 (10.0-50.0) Monocytes % (Manual) 5 (0-12) Eosinophils % (Manual) 2 (0-7) Basophils % (Manual) 0 (0.0-2.0) Metamyelocytes % (manual) 0 Myelocytes % (Manual) 0 Promyelocytes % (Manual) 0 Blast Cells % (Manual) 0 Reactive Lymphocytes 0 Platelet Estimate Adequate Creatinine 0.80 mg/dL (0.700-1.30) Glomerular Filtration Rate Calc 124 mL/min (>90) Eosinophils (%) (Auto) 2.9 % (0.0-7.0) Eosinophils # (Auto) 0.2 10 ^3/uL (0-0.8) Basophils # (Auto) 0.1 10 ^3/uL (0-0.2) Nucleated Red Blood Cells 0.1 % Test 02/08/24 10:00 02/07/24 04:54 02/06/24 09:00 02/06/24 08:50 Prothrombin Time 11.4 sec (9.3-11.8) Prothrombin Time INR 1.08 (0.9-1.15) Activated Partial Thromboplast Time 27.9 SEC (24.5-34.5) Sodium Level 137 mmol/L (136-145) Potassium Level 3.9 mmol/L (3.5-5.1) Chloride Level 104 mmol/L (98-107) Carbon Dioxide Level 27 mmol/L (20-31) Anion Gap 6 (5-15) Blood Urea Nitrogen 8 mg/dL (9-23) BUN/Creatinine Ratio 9.4 (10.0-20.0) Serum Glucose 110 mg/dL (74-106) Calcium Level 9.7 mg/dL (8.7-10.4) Total Bilirubin 0.8 mg/dL (0.2-1.0) Aspartate Amino Transferase (AST) 17 U/L (13-40) Alanine Aminotransferase (ALT) 31 U/L (7-40) Alkaline Phosphatase 154 U/L (46-116) Total Protein 7.1 g/dL (5.7-8.2) Albumin 4.4 g/dL (3.2-4.8) Urine Color Yellow (Yellow) Urine Clarity Clear (Clear) Urine pH 6.5 (5.0-9.0) Urine Specific [place] 1.037 (1.001-1.035) Urine Protein 1+ (Negative) Urine Ketones 3+ (Negative) Urine Blood Negative /uL (Negative) Urine Nitrite Negative (Negative) Urine Bilirubin Negative (Negative) Urine Urobilinogen Over mg/dL (Negative) Urine Leukocyte Esterase Negative /uL (Negative) Urine RBC 11 /hpf (0 - 3) Urine WBC 1 /hpf (0 - 3) Urine Squamous Epithelial Cells Few /hpf (<5) Urine Bacteria None seen /hpf (None Seen) Urine Mucus Few (None Seen) Urine Glucose Normal mg/dL (Normal) Uric Acid 5.4 mg/dL (3.7-9.2) C-Reactive Protein High Sensitivity 7.37 mg/dL (<1.0) Other Laboratory Tests 02/12/24 04:54 02/07/24 04:54 Brief Hx & Hospital Course: 28-year-old male hearing impaired, schizophrenia came into the hospital complaining of pain in the right 1st toe. Found to have abscess and underwent incision and drainage by the blower feeder dyed raw stock Dr Momin and subsequent delayed closure. Patient was started on vancomycin. MRSA screen was positive given Bactroban nasal ointment. Id consult by Dr. Alfonso Flores . Rocephin added to vancomycin. CT showed osteomyelitis of the right 1st toe. Deep Wound cultures from the site of operation showed MRSA sensitive to clindamycin. ID Dr Flores advised the patient can be discharged home on clindamycin 300 mg p.o. 4 times a day for six weeks for osteomyelitis and patient is being discharged. Explained to him with the help of writing board . He will follow up with the discharge clinic in one week with the blower feeder dyed raw stock Dr Momin in one week and with the ID Dr. Alfonso Flores in four weeks Consults/Reason for consult ID Dr. Alfonso Flores Podiatry Dr Momin Operations or Procedures Incision and drainage of the abscess right 1st toe Condition at Discharge: Good Final Diagnosis/Problems List Sepsis secondary to cellulitis right foot Acute osteomyelitis and abscess right 1st toe: Vancomycin consult for podiatry Dr. Momin appreciated, status post incision and drainage of the abscess wound cultures showing MRSA, continue vancomycin, Rocephin added Hearing impaired MRSA screen positive: Bactroban nasal ointment Deep tissue wound cultures from the wound positive for MRSA sensitive to clindamycin ID consult by Dr. Alfonso Flores appreciated, advised to continue vancomycin and added Rocephin while in the hospital, advised clindamycin 300 mg p.o. q.i.d. for six weeks on discharge Status post I&D to bone and right foot delayed closure by blower feeder dyed raw stock Dr. Momin on 02/12/2024 Discharge Disposition: Home Discharge Instruct/Medications Diet: Regular Activity: Light activity Follow Up/Referral: Follow up with the discharge clinic in one week Follow up with the podiatric Dr. Momin in one week Follow up with the ID Dr. Alfonso Flores in four weeks Medications: Clindamycin 300 mg p.o. 4 times a day for six weeks Transmitted to [facility] pharmacy 39 (Time taken for discharge summary 39 minutes) Discharge Statement: "Patient was advised to return to the ER or call 911 if any headaches, dizziness, shortness of breath, chest pain, abdominal pain, bleeding, fevers, or worsening of medical condition. Patient was counseled about treatment plan, medications, possible side effects, patientverbalized understanding. All questions were answered to the best of my ability. This discharge took greater then 30 minutes in planning, reviewing documentation, counseling the patient, and discussing with other team members." ASSESSMENT ASSESSMENT Hospital Course Improved Assessment Sepsis secondary to cellulitis right foot Acute osteomyelitis and abscess right 1st toe: Vancomycin consult for podiatry Dr. Momin appreciated, status post incision and drainage of the abscess wound cultures showing MRSA, continue vancomycin, Rocephin added Hearing impaired MRSA screen positive: Bactroban nasal ointment Deep tissue wound cultures from the wound positive for MRSA sensitive to clindamycin ID consult by Dr. Alfonso Flores appreciated, advised to continue vancomycin and added Rocephin while in the hospital, advised clindamycin 300 mg p.o. q.i.d. for six weeks on discharge Status post I&D to bone and right foot delayed closure by blower feeder dyed raw stock Dr. Momin on 02/12/2024 Date of Service: Feb 15, 2024 Billing Provider: AYO CERDA MD Common Visit Codes: [id number] DISCH DAY >30min AYO CERDA MD Feb 15, 2024 08:43
[2024-02-15] MEDS: VANCOMYCIN 1GM/200ML PREMIX 200 ML IV SCH (09:50)
--- NOTE | 2024-02-15 21:40 | DVHPN2 ---
Consult Progress Note Date Seen: Feb 15, 2024 Subjective Patient reports: Other (dicussed with patients mother and patient and agreed no need for IV antibiotics or 2 antibiotics , will just go home with 1 antibiotic. No bleeding on toes) Objective vital signs Vital Sign Date Time Temp Pulse Resp B/P (MAP) Pulse Ox O2 Delivery O2 Flow Rate FiO2 02/15/24 17:00 98.9 83 16 125/68 (87) 98 98.9 02/15/24 08:30 Room Air* 0 21 Total Intake and Output 02/14/24 02/14/24 02/15/24 15:00 23:00 07:00 Intake Total 50 ml 650 ml 600 ml Output Total 500 ml Balance 50 ml 150 ml 600 ml medications Current Medications Medications Dose Ordered Sig/Linden Route Start Time Stop Time Status Last Admin Dose Admin Sodium Chloride 1,000 ml @ 60 mls/hr [id number] IV 02/06/24 11:15 02/14/24 21:42 60 MLS/HR Ondansetron HCl 4 mg Q4HP PRN IV 02/06/24 11:15 02/06/24 20:59 4 MG Docusate Sodium 100 mg BIDPRN PRN PO 02/06/24 11:15 Acetaminophen 650 mg Q6HP PRN PO 02/06/24 11:15 02/07/24 02:00 650 MG Vancomycin HCl 0 ml @ 0 mls/hr UD IV 02/06/24 11:30 Nitroglycerin 0.4 mg Q5MINP PRN SL 02/06/24 11:45 Sodium Chloride 10 ml QSHIFT@10,22 IV 02/10/24 22:00 02/15/24 08:40 10 ML Ceftriaxone Sodium/Dextrose 50 ml @ 50 mls/hr DAILY IV 02/14/24 10:00 Cancel Vancomycin HCl 200 ml @ 200 mls/hr Q8H IV 02/15/24 09:00 02/15/24 09:50 200 MLS/HR Physical Exam: General:?NAD Neck:?Supple. No masses. HEENT:?PERRL. Normal lids and conjunctiva. Moist mucous membranes. Oropharynx without lesions, exudates, or excessive erythema. Normal appearance of the external aspects of the nose and ears. Heart:?Regular rhythm, normal rate. No murmur. No lower extremity edema. Lungs:?Normal respiratory effort. Clear to auscultation bilaterally. No wheezes. No crackles. Abdomen:?Soft. Non-tender. Non-distended. No masses or abdominal hernia. Msk:?No digital cyanosis. Normal strength and tone in all 4 limbs. Right great toe with redness, swelling on the lateral head, deep tissue ulcer with purulent drainage. Skin:?Warm and dry. Right great toe with redness, swelling, deep tissue ulcer with purulent drainage. Neuro:?Alert. No facial droop or slurred speech. Extra-ocular movements intact. Sensation intact to soft touch in all 4 limbs. Psych:?Appropriate mood. Full affect. Oriented to person, place, time, and situation. laboratory and microbiology Laboratory Tests 02/12/24 04:54 02/07/24 04:54 Test 02/07/24 04:54 Range/Units Serum Glucose 110 H 74-106 mg/dL Problem List/Assessment/Plan Problems(with codes): (1) Cellulitis of right toe (2) Other acute osteomyelitis, right ankle and foot (3) Pain of right great toe (4) Osteomyelitis (5) Cellulitis Problem List/Assessment/Plan ID Problem List: - Deaf, hard of hearing - Sepsis related to right great toe abscess - Right great toe abscess - Right great toe cellulitis - Right great toe osteomyelitis Assessment This is a 28 y.o. male with no significant past medical history, who presents with right great toe pain, swelling, and difficulty sleeping due to excessive pain. The condition began with an abrasion on the top of his great toe related to a hangnail. On admission, labs showed leukocytosis with WBC 18.6, platelets 249, sodium 135, BUN 10, creatinine 0.77, uric acid 5.4. Vital signs: BP 148/98, HR 92, Temp 98.2F, SpO2 99% on room air. Imaging of the right foot showed soft tissue swelling and cellulitis secondary to ulceration, with questionable developing acute osteomyelitis of the underlying lateral distal phalangeal head. The patient was started empirically on vancomycin and Zosyn (piperacillin- tazobactam). Zosyn was stopped because superficial cultures were positive only for MRSA. On 02/12/2024, the patient underwent surgical debridement, which removed several cc's of pus and an abscess extending to the bone. The patient appears to be improving on vancomycin monotherapy. His WBC is now 6.2, platelets 348. No fevers or chills after surgical debridement. He has bloody drainage from his toe, well-contained within the bandage. 02/13: operative cultures are growing MRSA Plan: - Continue vancomycin - stop ceftriaxone - Do not rely on superficial cultures to reduce antibiotic coverage at this time, given the location of the infection. - Oral antibiotics sufficient to cover osteomyelitis would include clindamycin 300 mg four times daily for six weeks upon discharge - Follow up in the Infectious Disease clinic in 46 weeks to determine if additional antibiotics are needed. - Continue wound care as outpatient. - Will follow up on blood cultures. Plan discussed with: Other Dietary Evaluation Review Comments: Consider Gaudencio BID for healing, monitor PO intake to meet 75% of his needs Expected Outcomes/Goals: maintain weight, healed wounds SUNITHA VELAZCO MD Feb 15, 2024 21:40
[2024-02-16] VITALS (8 sets, daily range): BP systolic 115–148; BP diastolic 73–88; PULSE 68–90; RESP 17–22; TEMP 97.9–98.5; O2SAT 90–99
--- NOTE | 2024-02-16 08:13 | DVHPN2 ---
Reviewed: Care Plan, H&P, Labs, Medications, Previous Orders, Radiology Changes from previous H/P or p: No Changes Eyes: No Pain, No Vision change, No Conjunctivae inflammation, No Eyelid inflammation, No Other, No Redness ENT: No Ear pain, No Ear discharge, No Nose pain, No Nose discharge, No Nose congestion, No Mouth pain, No Mouth swelling, No Throat pain, No Throat swelling, No Other Cardiovascular: No Chest Pain, No Palpitations, No Orthopnea, No Paroxysmal Noc. Dyspnea, No Edema, No Lt Headedness, No Other Respiratory: No Cough, No Dry, No Shortness of breath, No SOB with excertion, No Wheezing, No Hemoptysis, No Pleuritic Pain, No Sputum, No Other Gastrointestinal: No Nausea, No Vomiting, No Abdominal Pain, No Diarrhea, No Constipation, No Melena, No Hematochezia, No Other Genitourinary: No Dysuria, No Frequency, No Incontinence, No Hematuria, No Retention, No Other Musculoskeletal: other (Right great toe pain); No neck pain, No shoulder pain, No arm pain, No back pain, No hand pain, No leg pain, No foot pain Skin: No Rash, No Lesions, No Jaundice, No Bruising, No Other Objective Vitals Vital Signs Date Time Temp Pulse Resp B/P (MAP) Pulse Ox O2 Delivery O2 Flow Rate FiO2 02/16/24 05:00 97.9 90 22 126/83 (97) 90 97.9 02/15/24 20:00 Room Air* 0 21 Intake/Output Intake and Output 02/16/24 07:00 Intake Total 2870 ml Output Total 500 ml Balance 2370 ml Intake Oral 240 ml IV Total 200 ml Tube Feeding 2430 ml Output Urine Total 500 ml # Voids 6 # Bowel Movements 3 Medications Current Medications Medications Dose Ordered Sig/Linden Route Start Time Stop Time Status Last Admin Dose Admin Sodium Chloride 1,000 ml @ 60 mls/hr [id number] IV 02/06/24 11:15 02/16/24 06:00 60 MLS/HR Ondansetron HCl 4 mg Q4HP PRN IV 02/06/24 11:15 02/06/24 20:59 4 MG Docusate Sodium 100 mg BIDPRN PRN PO 02/06/24 11:15 Acetaminophen 650 mg Q6HP PRN PO 02/06/24 11:15 02/07/24 02:00 650 MG Vancomycin HCl 0 ml @ 0 mls/hr UD IV 02/06/24 11:30 Nitroglycerin 0.4 mg Q5MINP PRN SL 02/06/24 11:45 Sodium Chloride 10 ml QSHIFT@10,22 IV 02/10/24 22:00 02/15/24 08:40 10 ML Ceftriaxone Sodium/Dextrose 50 ml @ 50 mls/hr DAILY IV 02/14/24 10:00 Cancel Vancomycin HCl 200 ml @ 200 mls/hr Q8H IV 02/15/24 09:00 02/16/24 02:44 200 MLS/HR Laboratory Results Laboratory Tests 02/07/24 04:54 02/12/24 04:54 02/16/24 06:12 Urinalysis Test 02/06/24 09:00 Urine Color Yellow (Yellow) Urine Clarity Clear (Clear) Urine pH 6.5 (5.0-9.0) Urine Specific [place] 1.037 (1.001-1.035) Urine Protein 1+ (Negative) H Urine Ketones 3+ (Negative) H Urine Blood Negative /uL (Negative) Urine Nitrite Negative (Negative) Urine Bilirubin Negative (Negative) Urine Urobilinogen Over mg/dL (Negative) Urine Leukocyte Esterase Negative /uL (Negative) Urine RBC 11 /hpf (0 - 3) Urine WBC 1 /hpf (0 - 3) Urine Squamous Epithelial Cells Few /hpf (<5) Urine Bacteria None seen /hpf (None Seen) Urine Mucus Few (None Seen) Urine Glucose Normal mg/dL (Normal) Microbiology Microbiology Date/Time Source Procedure Growth Status 02/08/24 14:28 Foot Right Gram Stain - Final Complete 02/08/24 14:28 Foot Right Anaerobic Culture - Final Complete 02/08/24 14:28 Aerobic Culture - Final Methicillin Resistant S.aureus Complete 02/06/24 12:47 Blood Blood Culture - Final NO GROWTH AFTER 5 DAYS OF INCUBATION. Complete Labs and/or images reviewed: Labs reviewed by me, Image(s) reviewed by me Assessment/Plan Assessment/Plan Sepsis secondary to cellulitis right foot Acute osteomyelitis and abscess right 1st toe: Vancomycin consult for podiatry Dr. Momin appreciated, status post incision and drainage of the abscess wound cultures showing MRSA, continue vancomycin, Rocephin added Hearing impaired MRSA screen positive: Bactroban nasal ointment Deep tissue wound cultures from the wound positive for MRSA sensitive to clindamycin ID consult by Dr. Alfonso Flores appreciated, advised to continue vancomycin and added Rocephin while in the hospital, advised clindamycin 300 mg p.o. q.i.d. for six weeks on discharge Status post I&D to bone and right foot delayed closure by feeder operator Dr. Momin on 02/12/2024 Patient is being discharged home on clindamycin p.o. and he will follow up with discharge clinic and podiatric clinic in one week Patient was discharged home on 02/15/2024 and mother refused to take him enterprise services manager Sheila Gates is working on discharge plan. Plan discussed with: Patient My Orders Orders - AYO CERDA MD Procedure Category Date Status Time * Roller Painter CONS 02/15/24 Transmitted Consult Schedule For Dc EMANUEL 02/15/24 In Process Clinic F/U 08:31 Discharge DISCHARGE 02/15/24 Transmitted 08:36 Date of Service: Feb 16, 2024 Billing Provider: AYO CERDA MD Common Visit Codes: [id number] INP/OBS CARE(HIGH) AYO CERDA MD Feb 16, 2024 08:13
[2024-02-16] MEDS: CLINDAMYCIN HCL 150 MG CAP PO SCH (18:52)
[2024-02-16] MEDS: VANCOMYCIN 1GM/200ML PREMIX 200 ML IV SCH (20:11)
--- NOTE | 2024-02-16 22:00 | DVHPN2 ---
Consult Progress Note Date Seen: Feb 16, 2024 Subjective Patient reports: Feels better (working on discharge arrangements , tolerating oral clindamycin, patient needs to be educated on the importance of taking medication 4x a day which may be difficult given his impairments ) Objective vital signs Vital Sign Date Time Temp Pulse Resp B/P (MAP) Pulse Ox O2 Delivery O2 Flow Rate FiO2 02/16/24 21:00 98.4 86 18 121/76 (91) 98 98.4 02/16/24 08:30 Room Air* 0 21 Total Intake and Output 02/15/24 02/15/24 02/16/24 14:59 22:59 06:59 Intake Total 200 ml 2430 ml 240 ml Output Total 500 ml Balance 200 ml 2430 ml -260 ml medications Current Medications Medications Dose Ordered Sig/Linden Route Start Time Stop Time Status Last Admin Dose Admin Sodium Chloride 1,000 ml @ 60 mls/hr [id number] IV 02/06/24 11:15 02/16/24 21:23 60 MLS/HR Ondansetron HCl 4 mg Q4HP PRN IV 02/06/24 11:15 02/06/24 20:59 4 MG Docusate Sodium 100 mg BIDPRN PRN PO 02/06/24 11:15 Acetaminophen 650 mg Q6HP PRN PO 02/06/24 11:15 02/07/24 02:00 650 MG Vancomycin HCl 0 ml @ 0 mls/hr UD IV 02/06/24 11:30 Nitroglycerin 0.4 mg Q5MINP PRN SL 02/06/24 11:45 Sodium Chloride 10 ml QSHIFT@10,22 IV 02/10/24 22:00 02/16/24 10:22 10 ML Ceftriaxone Sodium/Dextrose 50 ml @ 50 mls/hr DAILY IV 02/14/24 10:00 Cancel Clindamycin HCl 300 mg Q6HR PO 02/16/24 12:00 02/16/24 18:52 300 MG Vancomycin HCl 200 ml @ 200 mls/hr Q8H IV 02/16/24 20:00 02/16/24 20:11 200 MLS/HR Physical Exam: General:?NAD Neck:?Supple. No masses. HEENT:?PERRL. Normal lids and conjunctiva. Moist mucous membranes. Oropharynx without lesions, exudates, or excessive erythema. Normal appearance of the external aspects of the nose and ears. Heart:?Regular rhythm, normal rate. No murmur. No lower extremity edema. Lungs:?Normal respiratory effort. Clear to auscultation bilaterally. No wheezes. No crackles. Abdomen:?Soft. Non-tender. Non-distended. No masses or abdominal hernia. Msk:?No digital cyanosis. Normal strength and tone in all 4 limbs. Right great toe with redness, swelling on the lateral head, deep tissue ulcer with purulent drainage. Skin:?Warm and dry. Right great toe with redness, swelling, deep tissue ulcer with purulent drainage. Neuro:?Alert. No facial droop or slurred speech. Extra-ocular movements intact. Sensation intact to soft touch in all 4 limbs. Psych:?Appropriate mood. Full affect. Oriented to person, place, time, and situation. laboratory and microbiology Laboratory Tests 02/16/24 06:12 02/12/24 04:54 02/07/24 04:54 Test 02/07/24 04:54 Range/Units Serum Glucose 110 H 74-106 mg/dL Problem List/Assessment/Plan Problems(with codes): (1) Cellulitis (2) Osteomyelitis (3) Pain of right great toe (4) Other acute osteomyelitis, right ankle and foot (5) Cellulitis of right toe Problem List/Assessment/Plan ID Problem List: - Deaf, hard of hearing - Sepsis related to right great toe abscess - Right great toe abscess - Right great toe cellulitis - Right great toe osteomyelitis Assessment This is a 28 y.o. male with no significant past medical history, who presents with right great toe pain, swelling, and difficulty sleeping due to excessive pain. The condition began with an abrasion on the top of his great toe related to a hangnail. On admission, labs showed leukocytosis with WBC 18.6, platelets 249, sodium 135, BUN 10, creatinine 0.77, uric acid 5.4. Vital signs: BP 148/98, HR 92, Temp 98.2F, SpO2 99% on room air. Imaging of the right foot showed soft tissue swelling and cellulitis secondary to ulceration, with questionable developing acute osteomyelitis of the underlying lateral distal phalangeal head. The patient was started empirically on vancomycin and Zosyn (piperacillin- tazobactam). Zosyn was stopped because superficial cultures were positive only for MRSA. On 02/12/2024, the patient underwent surgical debridement, which removed several cc's of pus and an abscess extending to the bone. The patient appears to be improving on vancomycin monotherapy. His WBC is now 6.2, platelets 348. No fevers or chills after surgical debridement. He has bloody drainage from his toe, well-contained within the bandage. 02/13: operative cultures are growing MRSA Plan: - Continue vancomycin - stop ceftriaxone - Do not rely on superficial cultures to reduce antibiotic coverage at this time, given the location of the infection. - Oral antibiotics sufficient to cover osteomyelitis would include clindamycin 300 mg four times daily for six weeks upon discharge - Follow up in the Infectious Disease clinic in 46 weeks to determine if additional antibiotics are needed. - Continue wound care as outpatient. - Will follow up on blood cultures. Plan discussed with: Other Dietary Evaluation Review Comments: Consider Gaudencio BID for healing, monitor PO intake to meet 75% of his needs Expected Outcomes/Goals: maintain weight, healed wounds SUNITHA VELAZCO MD Feb 16, 2024 22:00
[2024-02-17] VITALS (8 sets, daily range): BP systolic 112–142; BP diastolic 65–83; PULSE 66–99; RESP 16–19; TEMP 98.1–98.7; O2SAT 0–99
[2024-02-17 03:23] LABS: Basophils # (auto) 0.2 10 ^3/uL (0-0.2); Basophils % (auto) 2.6 % (0.0-2.0); Eosinophils # (auto) 0.2 10 ^3/uL (0-0.8); Eosinophils % (auto) 2.3 % (0.0-7.0); Hematocrit 48.7 % (41.0-53.0); Hemoglobin 16.8 g/dL (13.5-17.5); Lymphocytes # (auto) 2.6 10 ^3/uL (0.4-5.4); Lymphocytes % (auto) 36.4 % (10.0-50.0); Mean Corpuscular Hemoglobin 30.2 pg (28.0-32.0); Mean Corpuscular Hgb Conc. 34.5 g/dL (32.0-36.0); Mean Corpuscular Volume 87.7 fL (80.0-100.0); Monocytes # (auto) 0.7 10 ^3/uL (0-1.3); Monocytes % (auto) 9.9 % (0.0-12.0); Neutrophils # (auto) 3.6 10 ^3/uL (1.6-8.6); Neutrophils % (auto) 48.8 % (37.0-80.0); Nucleated Red Blood Cells % 0.1 %; Platelet Count (auto) 346 10^3/uL (140-450); Red Blood Cells 5.55 10^6/uL (4.5-5.90); Red Cell Distribution Width 13.6 % (11.8-14.3); White Blood Cell 7.3 10^3/uL (4.4-10.8)
--- NOTE | 2024-02-17 09:02 | DVHPN2 ---
Reviewed: Care Plan, H&P, Labs, Medications, Previous Orders, Radiology Changes from previous H/P or p: No Changes Eyes: No Pain, No Vision change, No Conjunctivae inflammation, No Eyelid inflammation, No Other, No Redness ENT: No Ear pain, No Ear discharge, No Nose pain, No Nose discharge, No Nose congestion, No Mouth pain, No Mouth swelling, No Throat pain, No Throat swelling, No Other Cardiovascular: No Chest Pain, No Palpitations, No Orthopnea, No Paroxysmal Noc. Dyspnea, No Edema, No Lt Headedness, No Other Respiratory: No Cough, No Dry, No Shortness of breath, No SOB with excertion, No Wheezing, No Hemoptysis, No Pleuritic Pain, No Sputum, No Other Gastrointestinal: No Nausea, No Vomiting, No Abdominal Pain, No Diarrhea, No Constipation, No Melena, No Hematochezia, No Other Genitourinary: No Dysuria, No Frequency, No Incontinence, No Hematuria, No Retention, No Other Musculoskeletal: other (Right great toe pain); No neck pain, No shoulder pain, No arm pain, No back pain, No hand pain, No leg pain, No foot pain Skin: No Rash, No Lesions, No Jaundice, No Bruising, No Other Objective Vitals Vital Signs Date Time Temp Pulse Resp B/P (MAP) Pulse Ox O2 Delivery O2 Flow Rate FiO2 02/17/24 05:00 98.1 66 18 112/68 (83) 0 98.1 02/16/24 20:00 Room Air* 0 21 Intake/Output Intake and Output 02/17/24 07:00 Intake Total 1850 ml Output Total 700 ml Balance 1150 ml Intake Oral 1450 ml IV Total 400 ml Output Urine Total 700 ml # Voids 12 # Bowel Movements 4 Medications Current Medications Medications Dose Ordered Sig/Linden Route Start Time Stop Time Status Last Admin Dose Admin Sodium Chloride 1,000 ml @ 60 mls/hr [id number] IV 02/06/24 11:15 02/16/24 21:23 60 MLS/HR Ondansetron HCl 4 mg Q4HP PRN IV 02/06/24 11:15 02/06/24 20:59 4 MG Docusate Sodium 100 mg BIDPRN PRN PO 02/06/24 11:15 Acetaminophen 650 mg Q6HP PRN PO 02/06/24 11:15 02/07/24 02:00 650 MG Vancomycin HCl 0 ml @ 0 mls/hr UD IV 02/06/24 11:30 Nitroglycerin 0.4 mg Q5MINP PRN SL 02/06/24 11:45 Sodium Chloride 10 ml QSHIFT@10,22 IV 02/10/24 22:00 02/16/24 22:06 10 ML Ceftriaxone Sodium/Dextrose 50 ml @ 50 mls/hr DAILY IV 02/14/24 10:00 Cancel Clindamycin HCl 300 mg Q6HR PO 02/16/24 12:00 02/17/24 05:35 300 MG Vancomycin HCl 200 ml @ 200 mls/hr Q8H IV 02/16/24 20:00 02/17/24 03:57 200 MLS/HR Laboratory Results Laboratory Tests 02/07/24 04:54 02/17/24 03:00 Urinalysis Test 02/06/24 09:00 Urine Color Yellow (Yellow) Urine Clarity Clear (Clear) Urine pH 6.5 (5.0-9.0) Urine Specific [place] 1.037 (1.001-1.035) Urine Protein 1+ (Negative) H Urine Ketones 3+ (Negative) H Urine Blood Negative /uL (Negative) Urine Nitrite Negative (Negative) Urine Bilirubin Negative (Negative) Urine Urobilinogen Over mg/dL (Negative) Urine Leukocyte Esterase Negative /uL (Negative) Urine RBC 11 /hpf (0 - 3) Urine WBC 1 /hpf (0 - 3) Urine Squamous Epithelial Cells Few /hpf (<5) Urine Bacteria None seen /hpf (None Seen) Urine Mucus Few (None Seen) Urine Glucose Normal mg/dL (Normal) Microbiology Microbiology Date/Time Source Procedure Growth Status 02/08/24 14:28 Foot Right Gram Stain - Final Complete 02/08/24 14:28 Foot Right Anaerobic Culture - Final Complete 02/08/24 14:28 Aerobic Culture - Final Methicillin Resistant S.aureus Complete 02/06/24 12:47 Blood Blood Culture - Final NO GROWTH AFTER 5 DAYS OF INCUBATION. Complete Labs and/or images reviewed: Labs reviewed by me, Image(s) reviewed by me Assessment/Plan Assessment/Plan Sepsis secondary to cellulitis right foot Acute osteomyelitis and abscess right 1st toe: Vancomycin consult for podiatry Dr. Momin appreciated, status post incision and drainage of the abscess wound cultures showing MRSA, continue vancomycin, Rocephin added Hearing impaired MRSA screen positive: Bactroban nasal ointment Deep tissue wound cultures from the wound positive for MRSA sensitive to clindamycin ID consult by Dr. Alfonso youssef, advised to continue vancomycin and added Rocephin while in the hospital, advised clindamycin 300 mg p.o. q.i.d. for six weeks on discharge Status post I&D to bone and right foot delayed closure by sterile processing technician Dr. Momin on 02/12/2024 Patient is being discharged home on clindamycin p.o. and he will follow up with discharge clinic and podiatric clinic in one week Patient was discharged home on 02/15/2024 Mother and father refused to take the patient home The person with whom he lives is admitted to [facility] technical services rep Sheila Gates is working on discharge plan. Plan discussed with: Patient Date of Service: Feb 17, 2024 Billing Provider: AYO CERDA MD Common Visit Codes: [id number] INP/OBS CARE(HIGH) AOY CERDA MD Feb 17, 2024 09:02
--- NOTE | 2024-02-17 22:06 | DVHPN2 ---
Consult Progress Note Date Seen: Feb 17, 2024 Subjective Patient reports: Other (remains in hospital because of difficulty discharge due to home plan by web content & social media manager ) Objective vital signs Vital Sign Date Time Temp Pulse Resp B/P (MAP) Pulse Ox O2 Delivery O2 Flow Rate FiO2 02/17/24 21:00 98.7 96 17 114/70 (85) 84 98.7 02/17/24 08:00 Room Air* 0 21 Total Intake and Output 02/16/24 02/16/24 02/17/24 15:00 23:00 07:00 Intake Total 1150 ml 700 ml Output Total 700 ml Balance 450 ml 700 ml medications Current Medications Medications Dose Ordered Sig/Linden Route Start Time Stop Time Status Last Admin Dose Admin Sodium Chloride 1,000 ml @ 60 mls/hr [id number] IV 02/06/24 11:15 02/17/24 12:15 60 MLS/HR Ondansetron HCl 4 mg Q4HP PRN IV 02/06/24 11:15 02/06/24 20:59 4 MG Docusate Sodium 100 mg BIDPRN PRN PO 02/06/24 11:15 Acetaminophen 650 mg Q6HP PRN PO 02/06/24 11:15 02/07/24 02:00 650 MG Nitroglycerin 0.4 mg Q5MINP PRN SL 02/06/24 11:45 Sodium Chloride 10 ml QSHIFT@10,22 IV 02/10/24 22:00 02/17/24 12:15 10 ML Ceftriaxone Sodium/Dextrose 50 ml @ 50 mls/hr DAILY IV 02/14/24 10:00 Cancel Clindamycin HCl 300 mg Q6HR PO 02/16/24 12:00 02/17/24 18:14 300 MG Vancomycin HCl 200 ml @ 200 mls/hr Q8H IV 02/16/24 20:00 02/17/24 12:14 200 MLS/HR Physical Exam: General:?NAD Neck:?Supple. No masses. HEENT:?PERRL. Normal lids and conjunctiva. Moist mucous membranes. Oropharynx without lesions, exudates, or excessive erythema. Normal appearance of the external aspects of the nose and ears. Heart:?Regular rhythm, normal rate. No murmur. No lower extremity edema. Lungs:?Normal respiratory effort. Clear to auscultation bilaterally. No wheezes. No crackles. Abdomen:?Soft. Non-tender. Non-distended. No masses or abdominal hernia. Msk:?No digital cyanosis. Normal strength and tone in all 4 limbs. Right great toe with redness, swelling on the lateral head, deep tissue ulcer with purulent drainage. Skin:?Warm and dry. Right great toe with redness, swelling, deep tissue ulcer with purulent drainage. Neuro:?Alert. No facial droop or slurred speech. Extra-ocular movements intact. Sensation intact to soft touch in all 4 limbs. Psych:?Appropriate mood. Full affect. Oriented to person, place, time, and situation. laboratory and microbiology Laboratory Tests 02/17/24 03:00 02/07/24 04:54 Test 02/07/24 04:54 Range/Units Serum Glucose 110 H 74-106 mg/dL Problem List/Assessment/Plan Problems(with codes): (1) Cellulitis (2) Osteomyelitis (3) Pain of right great toe (4) Other acute osteomyelitis, right ankle and foot (5) Cellulitis of right toe Problem List/Assessment/Plan ID Problem List: - Deaf, hard of hearing - Sepsis related to right great toe abscess - Right great toe abscess - Right great toe cellulitis - Right great toe osteomyelitis Assessment This is a 28 y.o. male with no significant past medical history, who presents with right great toe pain, swelling, and difficulty sleeping due to excessive pain. The condition began with an abrasion on the top of his great toe related to a hangnail. On admission, labs showed leukocytosis with WBC 18.6, platelets 249, sodium 135, BUN 10, creatinine 0.77, uric acid 5.4. Vital signs: BP 148/98, HR 92, Temp 98.2F, SpO2 99% on room air. Imaging of the right foot showed soft tissue swelling and cellulitis secondary to ulceration, with questionable developing acute osteomyelitis of the underlying lateral distal phalangeal head. The patient was started empirically on vancomycin and Zosyn (piperacillin- tazobactam). Zosyn was stopped because superficial cultures were positive only for MRSA. On 02/12/2024, the patient underwent surgical debridement, which removed several cc's of pus and an abscess extending to the bone. The patient appears to be improving on vancomycin monotherapy. His WBC is now 6.2, platelets 348. No fevers or chills after surgical debridement. He has bloody drainage from his toe, well-contained within the bandage. 02/13: operative cultures are growing MRSA Plan: - Continue vancomycin - stop ceftriaxone - Do not rely on superficial cultures to reduce antibiotic coverage at this time, given the location of the infection. - Oral antibiotics sufficient to cover osteomyelitis would include clindamycin 300 mg four times daily for six weeks upon discharge - Follow up in the Infectious Disease clinic in 46 weeks to determine if additional antibiotics are needed. - Continue wound care as outpatient. - Will follow up on blood cultures. Plan discussed with: Other Dietary Evaluation Review Comments: Consider Gaudencio BID for healing, monitor PO intake to meet 75% of his needs Expected Outcomes/Goals: maintain weight, healed wounds SUNITHA VELAZCO MD Feb 17, 2024 22:06
[2024-02-18] VITALS (8 sets, daily range): BP systolic 105–132; BP diastolic 70–82; PULSE 71–96; RESP 16–18; TEMP 97.5–98.4; O2SAT 97–99
--- NOTE | 2024-02-18 07:51 | DVHPN2 ---
Reviewed: Care Plan, H&P, Labs, Medications, Previous Orders, Radiology Changes from previous H/P or p: No Changes Eyes: No Pain, No Vision change, No Conjunctivae inflammation, No Eyelid inflammation, No Other, No Redness ENT: No Ear pain, No Ear discharge, No Nose pain, No Nose discharge, No Nose congestion, No Mouth pain, No Mouth swelling, No Throat pain, No Throat swelling, No Other Cardiovascular: No Chest Pain, No Palpitations, No Orthopnea, No Paroxysmal Noc. Dyspnea, No Edema, No Lt Headedness, No Other Respiratory: No Cough, No Dry, No Shortness of breath, No SOB with excertion, No Wheezing, No Hemoptysis, No Pleuritic Pain, No Sputum, No Other Gastrointestinal: No Nausea, No Vomiting, No Abdominal Pain, No Diarrhea, No Constipation, No Melena, No Hematochezia, No Other Genitourinary: No Dysuria, No Frequency, No Incontinence, No Hematuria, No Retention, No Other Musculoskeletal: other (Right great toe pain); No neck pain, No shoulder pain, No arm pain, No back pain, No hand pain, No leg pain, No foot pain Skin: No Rash, No Lesions, No Jaundice, No Bruising, No Other Objective Vitals Vital Signs Date Time Temp Pulse Resp B/P (MAP) Pulse Ox O2 Delivery O2 Flow Rate FiO2 02/18/24 05:00 97.5 89 17 125/73 (90) 98 97.5 02/17/24 20:00 Room Air* 0 21 Intake/Output Intake and Output 02/18/24 07:00 Intake Total 4050 ml Balance 4050 ml Intake Oral 4050 ml # Voids 14 # Bowel Movements 6 Medications Current Medications Medications Dose Ordered Sig/Linden Route Start Time Stop Time Status Last Admin Dose Admin Sodium Chloride 1,000 ml @ 60 mls/hr [id number] IV 02/06/24 11:15 02/18/24 05:38 60 MLS/HR Ondansetron HCl 4 mg Q4HP PRN IV 02/06/24 11:15 02/06/24 20:59 4 MG Docusate Sodium 100 mg BIDPRN PRN PO 02/06/24 11:15 Acetaminophen 650 mg Q6HP PRN PO 02/06/24 11:15 02/07/24 02:00 650 MG Nitroglycerin 0.4 mg Q5MINP PRN SL 02/06/24 11:45 Sodium Chloride 10 ml QSHIFT@,22 IV 02/10/24 22:00 02/17/24 22:00 10 ML Ceftriaxone Sodium/Dextrose 50 ml @ 50 mls/hr DAILY IV 02/14/24 10:00 Cancel Clindamycin HCl 300 mg Q6HR PO 02/16/24 12:00 02/18/24 05:30 300 MG Vancomycin HCl 200 ml @ 200 mls/hr Q8H IV 02/16/24 20:00 02/17/24 12:14 200 MLS/HR Laboratory Results Laboratory Tests 02/07/24 04:54 02/17/24 03:00 Urinalysis Test 02/06/24 09:00 Urine Color Yellow (Yellow) Urine Clarity Clear (Clear) Urine pH 6.5 (5.0-9.0) Urine Specific [place] 1.037 (1.001-1.035) Urine Protein 1+ (Negative) H Urine Ketones 3+ (Negative) H Urine Blood Negative /uL (Negative) Urine Nitrite Negative (Negative) Urine Bilirubin Negative (Negative) Urine Urobilinogen Over mg/dL (Negative) Urine Leukocyte Esterase Negative /uL (Negative) Urine RBC 11 /hpf (0 - 3) Urine WBC 1 /hpf (0 - 3) Urine Squamous Epithelial Cells Few /hpf (<5) Urine Bacteria None seen /hpf (None Seen) Urine Mucus Few (None Seen) Urine Glucose Normal mg/dL (Normal) Microbiology Microbiology Date/Time Source Procedure Growth Status 02/08/24 14:28 Foot Right Gram Stain - Final Complete 02/08/24 14:28 Foot Right Anaerobic Culture - Final Complete 02/08/24 14:28 Aerobic Culture - Final Methicillin Resistant S.aureus Complete 02/06/24 12:47 Blood Blood Culture - Final NO GROWTH AFTER 5 DAYS OF INCUBATION. Complete Labs and/or images reviewed: Labs reviewed by me, Image(s) reviewed by me Assessment/Plan Assessment/Plan Sepsis secondary to cellulitis right foot Acute osteomyelitis and abscess right 1st toe: Vancomycin consult for podiatry Dr. Momin appreciated, status post incision and drainage of the abscess wound cultures showing MRSA, continue vancomycin, Rocephin added Hearing impaired MRSA screen positive: Bactroban nasal ointment Deep tissue wound cultures from the wound positive for MRSA sensitive to clindamycin ID consult by Dr. Alfonso Flores appreciated, advised to continue vancomycin and added Rocephin while in the hospital, advised clindamycin 300 mg p.o. q.i.d. for six weeks on discharge Status post I&D to bone and right foot delayed closure by anglesmith Dr. Momin on 02/12/2024 Patient is being discharged home on clindamycin p.o. and he will follow up with discharge clinic and podiatric clinic in one week Patient was discharged home on 02/15/2024 Mother and father refused to take the patient home The person with whom he lives is admitted to [facility] professional services manager Sheila Gates is working on discharge plan. No new complaints Plan discussed with: Patient Date of Service: Feb 18, 2024 Billing Provider: AYO CERDA MD Common Visit Codes: [id number] INP/OBS CARE(HIGH) AYO CERDA MD Feb 18, 2024 07:51
[2024-02-18 09:43] LABS: Basophils # (auto) 0.1 10 ^3/uL (0-0.2); Basophils % (auto) 1.4 % (0.0-2.0); Eosinophils # (auto) 0.1 10 ^3/uL (0-0.8); Eosinophils % (auto) 1.9 % (0.0-7.0); Hematocrit 47.2 % (41.0-53.0); Lymphocytes # (auto) 1.9 10 ^3/uL (0.4-5.4); Lymphocytes % (auto) 27.6 % (10.0-50.0); Mean Corpuscular Hemoglobin 29.8 pg (28.0-32.0); Mean Corpuscular Hgb Conc. 33.9 g/dL (32.0-36.0); Mean Corpuscular Volume 87.9 fL (80.0-100.0); Monocytes # (auto) 0.5 10 ^3/uL (0-1.3); Neutrophils # (auto) 4.3 10 ^3/uL (1.6-8.6); Neutrophils % (auto) 62.1 % (37.0-80.0); Nucleated Red Blood Cells % 0.1 %; Platelet Count (auto) 337 10^3/uL (140-450); Red Blood Cells 5.37 10^6/uL (4.5-5.90); Red Cell Distribution Width 13.6 % (11.8-14.3)
[2024-02-18] MEDS: VANCOMYCIN 1GM/200ML PREMIX 200 ML IV SCH (17:25)
[2024-02-19] VITALS (8 sets, daily range): BP systolic 115–136; BP diastolic 70–99; PULSE 68–91; RESP 16–21; TEMP 97.7–98.7; O2SAT 93–100
[2024-02-19 05:48] LABS: Basophils # (auto) 0.1 10 ^3/uL (0-0.2); Basophils % (auto) 1.2 % (0.0-2.0); Eosinophils # (auto) 0.1 10 ^3/uL (0-0.8); Hematocrit 44.3 % (41.0-53.0); Hemoglobin 15.3 g/dL (13.5-17.5); Lymphocytes # (auto) 2.6 10 ^3/uL (0.4-5.4); Lymphocytes % (auto) 37.3 % (10.0-50.0); Mean Corpuscular Hemoglobin 30.3 pg (28.0-32.0); Mean Corpuscular Hgb Conc. 34.6 g/dL (32.0-36.0); Mean Corpuscular Volume 87.8 fL (80.0-100.0); Monocytes # (auto) 0.5 10 ^3/uL (0-1.3); Monocytes % (auto) 6.8 % (0.0-12.0); Neutrophils # (auto) 3.7 10 ^3/uL (1.6-8.6); Neutrophils % (auto) 52.7 % (37.0-80.0); Platelet Count (auto) 329 10^3/uL (140-450); Red Blood Cells 5.05 10^6/uL (4.5-5.90); Red Cell Distribution Width 13.6 % (11.8-14.3)
--- NOTE | 2024-02-19 08:22 | DVHPN2 ---
Reviewed: Care Plan, H&P, Labs, Medications, Previous Orders, Radiology Changes from previous H/P or p: No Changes Eyes: No Pain, No Vision change, No Conjunctivae inflammation, No Eyelid inflammation, No Other, No Redness ENT: No Ear pain, No Ear discharge, No Nose pain, No Nose discharge, No Nose congestion, No Mouth pain, No Mouth swelling, No Throat pain, No Throat swelling, No Other Cardiovascular: No Chest Pain, No Palpitations, No Orthopnea, No Paroxysmal Noc. Dyspnea, No Edema, No Lt Headedness, No Other Respiratory: No Cough, No Dry, No Shortness of breath, No SOB with excertion, No Wheezing, No Hemoptysis, No Pleuritic Pain, No Sputum, No Other Gastrointestinal: No Nausea, No Vomiting, No Abdominal Pain, No Diarrhea, No Constipation, No Melena, No Hematochezia, No Other Genitourinary: No Dysuria, No Frequency, No Incontinence, No Hematuria, No Retention, No Other Musculoskeletal: other (Right great toe pain); No neck pain, No shoulder pain, No arm pain, No back pain, No hand pain, No leg pain, No foot pain Skin: No Rash, No Lesions, No Jaundice, No Bruising, No Other Objective Vitals Vital Signs Date Time Temp Pulse Resp B/P (MAP) Pulse Ox O2 Delivery O2 Flow Rate FiO2 02/19/24 05:00 98.0 68 16 115/70 (85) 99 98.0 02/18/24 20:00 Room Air* 0 21 Intake/Output Intake and Output 02/19/24 07:00 Intake Total 2160 ml Balance 2160 ml Intake Oral 1100 ml IV Total 1060 ml # Voids 11 # Bowel Movements 3 Medications Current Medications Medications Dose Ordered Sig/Linden Route Start Time Stop Time Status Last Admin Dose Admin Sodium Chloride 1,000 ml @ 60 mls/hr [id number] IV 02/06/24 11:15 02/18/24 05:38 60 MLS/HR Ondansetron HCl 4 mg Q4HP PRN IV 02/06/24 11:15 02/06/24 20:59 4 MG Docusate Sodium 100 mg BIDPRN PRN PO 02/06/24 11:15 Acetaminophen 650 mg Q6HP PRN PO 02/06/24 11:15 02/07/24 02:00 650 MG Nitroglycerin 0.4 mg Q5MINP PRN SL 02/06/24 11:45 Sodium Chloride 10 ml QSHIFT@10,22 IV 02/10/24 22:00 02/18/24 22:26 10 ML Ceftriaxone Sodium/Dextrose 50 ml @ 50 mls/hr DAILY IV 02/14/24 10:00 Cancel Clindamycin HCl 300 mg Q6HR PO 02/16/24 12:00 02/19/24 05:37 300 MG Vancomycin HCl 200 ml @ 200 mls/hr Q12H IV 02/18/24 16:00 02/19/24 03:56 200 MLS/HR Laboratory Results Laboratory Tests 02/07/24 04:54 02/19/24 04:48 Urinalysis Test 02/06/24 09:00 Urine Color Yellow (Yellow) Urine Clarity Clear (Clear) Urine pH 6.5 (5.0-9.0) Urine Specific [place] 1.037 (1.001-1.035) Urine Protein 1+ (Negative) H Urine Ketones 3+ (Negative) H Urine Blood Negative /uL (Negative) Urine Nitrite Negative (Negative) Urine Bilirubin Negative (Negative) Urine Urobilinogen Over mg/dL (Negative) Urine Leukocyte Esterase Negative /uL (Negative) Urine RBC 11 /hpf (0 - 3) Urine WBC 1 /hpf (0 - 3) Urine Squamous Epithelial Cells Few /hpf (<5) Urine Bacteria None seen /hpf (None Seen) Urine Mucus Few (None Seen) Urine Glucose Normal mg/dL (Normal) Microbiology Microbiology Date/Time Source Procedure Growth Status 02/08/24 14:28 Foot Right Gram Stain - Final Complete 02/08/24 14:28 Foot Right Anaerobic Culture - Final Complete 02/08/24 14:28 Aerobic Culture - Final Methicillin Resistant S.aureus Complete 02/06/24 12:47 Blood Blood Culture - Final NO GROWTH AFTER 5 DAYS OF INCUBATION. Complete Labs and/or images reviewed: Labs reviewed by me Assessment/Plan Assessment/Plan Sepsis secondary to cellulitis right foot Acute osteomyelitis and abscess right 1st toe: Vancomycin consult for podiatry Dr. Momin appreciated, status post incision and drainage of the abscess wound cultures showing MRSA, continue vancomycin, Rocephin added Hearing impaired MRSA screen positive: Bactroban nasal ointment Deep tissue wound cultures from the wound positive for MRSA sensitive to clindamycin ID consult by Dr. lAfonso Flores appreciated, advised to continue vancomycin and added Rocephin while in the hospital, advised clindamycin 300 mg p.o. q.i.d. for six weeks on discharge Status post I&D to bone and right foot delayed closure by home health care physician Dr. Momin on 02/12/2024 Patient is being discharged home on clindamycin p.o. and he will follow up with discharge clinic and podiatric clinic in one week Patient was discharged home on 02/15/2024 Mother and father refused to take the patient home The person with whom he lives is admitted to [facility] ancillary services manager Sheila Gates is working on discharge plan. No new complaints Plan discussed with: Patient Date of Service: Feb 19, 2024 Billing Provider: AYO CERDA MD Common Visit Codes: [id number] INP/OBS CARE(HIGH) AYO CERDA MD Feb 19, 2024 08:22
--- NOTE | 2024-02-19 15:34 | DVHPN2 ---
Consult Progress Note Date Seen: Feb 18, 2024 Subjective Patient reports: Feels better (no diarrhea or rash) Objective vital signs Vital Sign Date Time Temp Pulse Resp B/P (MAP) Pulse Ox O2 Delivery O2 Flow Rate FiO2 02/19/24 13:00 98.3 72 20 133/99 (110) 95 98.3 02/19/24 08:00 Room Air* 0 21 Total Intake and Output 02/18/24 02/18/24 02/19/24 14:59 22:59 06:59 Intake Total 1660 ml 500 ml Balance 1660 ml 500 ml medications Current Medications Medications Dose Ordered Sig/Linden Route Start Time Stop Time Status Last Admin Dose Admin Sodium Chloride 1,000 ml @ 60 mls/hr [id number] IV 02/06/24 11:15 02/19/24 10:41 60 MLS/HR Ondansetron HCl 4 mg Q4HP PRN IV 02/06/24 11:15 02/06/24 20:59 4 MG Docusate Sodium 100 mg BIDPRN PRN PO 02/06/24 11:15 Acetaminophen 650 mg Q6HP PRN PO 02/06/24 11:15 02/07/24 02:00 650 MG Nitroglycerin 0.4 mg Q5MINP PRN SL 02/06/24 11:45 Sodium Chloride 10 ml QSHIFT@10,22 IV 02/10/24 22:00 02/19/24 10:42 10 ML Ceftriaxone Sodium/Dextrose 50 ml @ 50 mls/hr DAILY IV 02/14/24 10:00 Cancel Clindamycin HCl 300 mg Q6HR PO 02/16/24 12:00 02/19/24 10:41 300 MG Vancomycin HCl 200 ml @ 200 mls/hr Q12H IV 02/18/24 16:00 02/19/24 03:56 200 MLS/HR PHYSICAL EXAM: - GENERAL: Alert and oriented x 3. No acute distress. Well-nourished. - EYES: EOMI. Anicteric. - HENT: Moist mucous membranes. No scleral icterus. No cervical lymphadenopathy. - LUNGS: Clear to auscultation bilaterally. No accessory muscle use. - CARDIOVASCULAR: Regular rate and rhythm. No murmur. No JVD. - ABDOMEN: Soft, non-tender and non-distended. No palpable masses. - EXTREMITIES: No edema. Non-tender.?SKIN: No rashes or lesions. Warm. - NEUROLOGIC: No focal neurological deficits. CN II-XII grossly intact, but not individually tested. - PSYCHIATRIC: Cooperative. Appropriate mood and affect. laboratory and microbiology Laboratory Tests 02/19/24 04:48 02/07/24 04:54 Test 02/07/24 04:54 Range/Units Serum Glucose 110 H 74-106 mg/dL Problem List/Assessment/Plan Problem List/Assessment/Plan ID Problem List: - Deaf, hard of hearing - Sepsis related to right great toe abscess - Right great toe abscess - Right great toe cellulitis - Right great toe osteomyelitis Assessment This is a 28 y.o. male with no significant past medical history, who presents with right great toe pain, swelling, and difficulty sleeping due to excessive pain. The condition began with an abrasion on the top of his great toe related to a hangnail. On admission, labs showed leukocytosis with WBC 18.6, platelets 249, sodium 135, BUN 10, creatinine 0.77, uric acid 5.4. Vital signs: BP 148/98, HR 92, Temp 98.2F, SpO2 99% on room air. Imaging of the right foot showed soft tissue swelling and cellulitis secondary to ulceration, with questionable developing acute osteomyelitis of the underlying lateral distal phalangeal head. The patient was started empirically on vancomycin and Zosyn (piperacillin- tazobactam). Zosyn was stopped because superficial cultures were positive only for MRSA. On 02/12/2024, the patient underwent surgical debridement, which removed several cc's of pus and an abscess extending to the bone. The patient appears to be improving on vancomycin monotherapy. His WBC is now 6.2, platelets 348. No fevers or chills after surgical debridement. He has bloody drainage from his toe, well-contained within the bandage. 02/13: operative cultures are growing MRSA Plan: - Continue vancomycin - stop ceftriaxone - Do not rely on superficial cultures to reduce antibiotic coverage at this time, given the location of the infection. - Oral antibiotics sufficient to cover osteomyelitis would include clindamycin 300 mg four times daily for six weeks upon discharge - Follow up in the Infectious Disease clinic in 46 weeks to determine if additional antibiotics are needed. - Continue wound care as outpatient. - Will follow up on blood cultures. Plan discussed with: Patient, Other (mother) Dietary Evaluation Review Comments: Consider Gaudencio BID for healing, monitor PO intake to meet 75% of his needs Expected Outcomes/Goals: maintain weight, healed wounds SUNITHA VELAZCO MD Feb 19, 2024 15:34
[2024-02-20] VITALS (7 sets, daily range): BP systolic 121–127; BP diastolic 70–84; PULSE 74–89; RESP 17–18; TEMP 97.9–98.2; O2SAT 98–100
[2024-02-20 03:04] LABS: Basophils # (auto) 0.2 10 ^3/uL (0-0.2); Basophils % (auto) 2.4 % (0.0-2.0); Eosinophils # (auto) 0.1 10 ^3/uL (0-0.8); Eosinophils % (auto) 1.6 % (0.0-7.0); Hematocrit 45.1 % (41.0-53.0); Hemoglobin 15.6 g/dL (13.5-17.5); Lymphocytes # (auto) 2.6 10 ^3/uL (0.4-5.4); Lymphocytes % (auto) 35.9 % (10.0-50.0); Mean Corpuscular Hemoglobin 30.3 pg (28.0-32.0); Mean Corpuscular Hgb Conc. 34.6 g/dL (32.0-36.0); Mean Corpuscular Volume 87.6 fL (80.0-100.0); Monocytes # (auto) 0.7 10 ^3/uL (0-1.3); Monocytes % (auto) 9.4 % (0.0-12.0); Neutrophils # (auto) 3.7 10 ^3/uL (1.6-8.6); Neutrophils % (auto) 50.7 % (37.0-80.0); Nucleated Red Blood Cells % 0.1 %; Platelet Count (auto) 346 10^3/uL (140-450); Red Blood Cells 5.15 10^6/uL (4.5-5.90); Red Cell Distribution Width 13.6 % (11.8-14.3); White Blood Cell 7.3 10^3/uL (4.4-10.8)
--- NOTE | 2024-02-20 08:28 | DVHPN2 ---
Reviewed: Care Plan, H&P, Labs, Medications, Previous Orders, Radiology Changes from previous H/P or p: No Changes Eyes: No Pain, No Vision change, No Conjunctivae inflammation, No Eyelid inflammation, No Other, No Redness ENT: No Ear pain, No Ear discharge, No Nose pain, No Nose discharge, No Nose congestion, No Mouth pain, No Mouth swelling, No Throat pain, No Throat swelling, No Other Cardiovascular: No Chest Pain, No Palpitations, No Orthopnea, No Paroxysmal Noc. Dyspnea, No Edema, No Lt Headedness, No Other Respiratory: No Cough, No Dry, No Shortness of breath, No SOB with excertion, No Wheezing, No Hemoptysis, No Pleuritic Pain, No Sputum, No Other Gastrointestinal: No Nausea, No Vomiting, No Abdominal Pain, No Diarrhea, No Constipation, No Melena, No Hematochezia, No Other Genitourinary: No Dysuria, No Frequency, No Incontinence, No Hematuria, No Retention, No Other Musculoskeletal: other (Right great toe pain); No neck pain, No shoulder pain, No arm pain, No back pain, No hand pain, No leg pain, No foot pain Skin: No Rash, No Lesions, No Jaundice, No Bruising, No Other Objective Vitals Vital Signs Date Time Temp Pulse Resp B/P (MAP) Pulse Ox O2 Delivery O2 Flow Rate FiO2 02/20/24 05:00 97.9 89 17 124/79 (94) 98 97.9 02/19/24 20:00 Room Air* 0 21 Intake/Output Intake and Output 02/20/24 07:00 Intake Total 3080 ml Balance 3080 ml Intake Oral 2200 ml IV Total 880 ml # Voids 8 Medications Current Medications Medications Dose Ordered Sig/Linden Route Start Time Stop Time Status Last Admin Dose Admin Sodium Chloride 1,000 ml @ 60 mls/hr [id number] IV 02/06/24 11:15 02/19/24 10:41 60 MLS/HR Ondansetron HCl 4 mg Q4HP PRN IV 02/06/24 11:15 02/06/24 20:59 4 MG Docusate Sodium 100 mg BIDPRN PRN PO 02/06/24 11:15 Acetaminophen 650 mg Q6HP PRN PO 02/06/24 11:15 02/07/24 02:00 650 MG Nitroglycerin 0.4 mg Q5MINP PRN SL 02/06/24 11:45 Sodium Chloride 10 ml QSHIFT@10,22 IV 02/10/24 22:00 02/20/24 00:51 10 ML Ceftriaxone Sodium/Dextrose 50 ml @ 50 mls/hr DAILY IV 02/14/24 10:00 Cancel Clindamycin HCl 300 mg Q6HR PO 02/16/24 12:00 02/20/24 05:22 300 MG Vancomycin HCl 200 ml @ 200 mls/hr Q12H IV 02/18/24 16:00 02/20/24 03:51 200 MLS/HR Laboratory Results Laboratory Tests 02/07/24 04:54 02/20/24 02:48 Urinalysis Test 02/06/24 09:00 Urine Color Yellow (Yellow) Urine Clarity Clear (Clear) Urine pH 6.5 (5.0-9.0) Urine Specific [place] 1.037 (1.001-1.035) Urine Protein 1+ (Negative) H Urine Ketones 3+ (Negative) H Urine Blood Negative /uL (Negative) Urine Nitrite Negative (Negative) Urine Bilirubin Negative (Negative) Urine Urobilinogen Over mg/dL (Negative) Urine Leukocyte Esterase Negative /uL (Negative) Urine RBC 11 /hpf (0 - 3) Urine WBC 1 /hpf (0 - 3) Urine Squamous Epithelial Cells Few /hpf (<5) Urine Bacteria None seen /hpf (None Seen) Urine Mucus Few (None Seen) Urine Glucose Normal mg/dL (Normal) Microbiology Microbiology Date/Time Source Procedure Growth Status 02/08/24 14:28 Foot Right Gram Stain - Final Complete 02/08/24 14:28 Foot Right Anaerobic Culture - Final Complete 02/08/24 14:28 Aerobic Culture - Final Methicillin Resistant S.aureus Complete 02/06/24 12:47 Blood Blood Culture - Final NO GROWTH AFTER 5 DAYS OF INCUBATION. Complete Labs and/or images reviewed: Labs reviewed by me, Image(s) reviewed by me Assessment/Plan Assessment/Plan Sepsis secondary to cellulitis right foot Acute osteomyelitis and abscess right 1st toe: Vancomycin consult for podiatry Dr. Momin appreciated, status post incision and drainage of the abscess wound cultures showing MRSA, continue vancomycin, Rocephin added Hearing impaired MRSA screen positive: Bactroban nasal ointment Deep tissue wound cultures from the wound positive for MRSA sensitive to clindamycin ID consult by Dr. Alfonso Flores appreciated, advised to continue vancomycin and added Rocephin while in the hospital, advised clindamycin 300 mg p.o. q.i.d. for six weeks on discharge Status post I&D to bone and right foot delayed closure by vice president of finance Dr. Momin on 02/12/2024 Patient is being discharged home on clindamycin p.o. and he will follow up with discharge clinic and podiatric clinic in one week Patient was discharged home on 02/15/2024 Mother and father refused to take the patient home The person with whom he lives is admitted to [facility] inpatient services rn Sheila Gtaes is working on discharge No new complaints Plan discussed with: Patient Date of Service: Feb 20, 2024 Billing Provider: AYO CERDA MD Common Visit Codes: [id number] INP/OBS CARE(HIGH) AYO CERDA MD Feb 20, 2024 08:28
--- NOTE | 2024-02-20 13:19 | DVHPN2 ---
Consult Progress Note Date Seen: Feb 19, 2024 Subjective Patient reports: Feels better (no fever or chills) Objective vital signs Vital Sign Date Time Temp Pulse Resp B/P (MAP) Pulse Ox O2 Delivery O2 Flow Rate FiO2 02/20/24 08:00 Room Air* 0 21 02/20/24 05:00 97.9 89 17 124/79 (94) 98 97.9 Total Intake and Output 02/19/24 02/19/24 02/20/24 15:00 23:00 07:00 Intake Total 1680 ml 1400 ml Balance 1680 ml 1400 ml medications Current Medications Medications Dose Ordered Sig/Linden Route Start Time Stop Time Status Last Admin Dose Admin Sodium Chloride 1,000 ml @ 60 mls/hr [id number] IV 02/06/24 11:15 02/19/24 10:41 60 MLS/HR Ondansetron HCl 4 mg Q4HP PRN IV 02/06/24 11:15 02/06/24 20:59 4 MG Docusate Sodium 100 mg BIDPRN PRN PO 02/06/24 11:15 Acetaminophen 650 mg Q6HP PRN PO 02/06/24 11:15 02/07/24 02:00 650 MG Nitroglycerin 0.4 mg Q5MINP PRN SL 02/06/24 11:45 Sodium Chloride 10 ml QSHIFT@10,22 IV 02/10/24 22:00 02/20/24 09:19 10 ML Ceftriaxone Sodium/Dextrose 50 ml @ 50 mls/hr DAILY IV 02/14/24 10:00 Cancel Clindamycin HCl 300 mg Q6HR PO 02/16/24 12:00 02/20/24 05:22 300 MG Vancomycin HCl 200 ml @ 200 mls/hr Q10H IV 02/20/24 14:00 PHYSICAL EXAM: - GENERAL: Alert and oriented x 3. No acute distress. Well-nourished. - EYES: EOMI. Anicteric. - HENT: Moist mucous membranes. No scleral icterus. No cervical lymphadenopathy. - LUNGS: Clear to auscultation bilaterally. No accessory muscle use. - CARDIOVASCULAR: Regular rate and rhythm. No murmur. No JVD. - ABDOMEN: Soft, non-tender and non-distended. No palpable masses. - EXTREMITIES: No edema. Non-tender.?SKIN: No rashes or lesions. Warm. - NEUROLOGIC: No focal neurological deficits. CN II-XII grossly intact, but not individually tested. - PSYCHIATRIC: Cooperative. Appropriate mood and affect. laboratory and microbiology Laboratory Tests 02/20/24 02:48 02/07/24 04:54 Test 02/07/24 04:54 Range/Units Serum Glucose 110 H 74-106 mg/dL Problem List/Assessment/Plan Problem List/Assessment/Plan ID Problem List: - Deaf, hard of hearing - Sepsis related to right great toe abscess - Right great toe abscess - Right great toe cellulitis - Right great toe osteomyelitis Assessment This is a 28 y.o. male with no significant past medical history, who presents with right great toe pain, swelling, and difficulty sleeping due to excessive pain. The condition began with an abrasion on the top of his great toe related to a hangnail. On admission, labs showed leukocytosis with WBC 18.6, platelets 249, sodium 135, BUN 10, creatinine 0.77, uric acid 5.4. Vital signs: BP 148/98, HR 92, Temp 98.2F, SpO2 99% on room air. Imaging of the right foot showed soft tissue swelling and cellulitis secondary to ulceration, with questionable developing acute osteomyelitis of the underlying lateral distal phalangeal head. The patient was started empirically on vancomycin and Zosyn (piperacillin- tazobactam). Zosyn was stopped because superficial cultures were positive only for MRSA. On 02/12/2024, the patient underwent surgical debridement, which removed several cc's of pus and an abscess extending to the bone. The patient appears to be improving on vancomycin monotherapy. His WBC is now 6.2, platelets 348. No fevers or chills after surgical debridement. He has bloody drainage from his toe, well-contained within the bandage. 02/13: operative cultures are growing MRSA Plan: - Continue vancomycin - stop ceftriaxone - Do not rely on superficial cultures to reduce antibiotic coverage at this time, given the location of the infection. - Oral antibiotics sufficient to cover osteomyelitis would include clindamycin 300 mg four times daily for six weeks upon discharge - Follow up in the Infectious Disease clinic in 46 weeks to determine if additional antibiotics are needed. - Continue wound care as outpatient. - Will follow up on blood cultures. Plan discussed with: Patient Dietary Evaluation Review Comments: Consider Gaudencio BID for healing, monitor PO intake to meet 75% of his needs Expected Outcomes/Goals: maintain weight, healed wounds SUNITHA VELAZCO MD Feb 20, 2024 13:19
[2024-02-20] MEDS: VANCOMYCIN 1GM/200ML PREMIX 200 ML IV SCH (14:32)
--- NOTE | 2024-02-20 21:54 | DVHPN2 ---
Consult Progress Note Date Seen: Feb 20, 2024 Subjective Patient reports: Feels better (no pain or excessive bleeding , tolerating antibiotics ) Objective vital signs Vital Sign Date Time Temp Pulse Resp B/P (MAP) Pulse Ox O2 Delivery O2 Flow Rate FiO2 02/20/24 21:00 98.1 80 18 127/76 (93) 98 98.1 02/20/24 08:00 Room Air* 0 21 Total Intake and Output 02/19/24 02/19/24 02/20/24 15:00 23:00 07:00 Intake Total 1680 ml 1400 ml Balance 1680 ml 1400 ml medications Current Medications Medications Dose Ordered Sig/Linden Route Start Time Stop Time Status Last Admin Dose Admin Sodium Chloride 1,000 ml @ 60 mls/hr [id number] IV 02/06/24 11:15 02/19/24 10:41 60 MLS/HR Ondansetron HCl 4 mg Q4HP PRN IV 02/06/24 11:15 02/06/24 20:59 4 MG Docusate Sodium 100 mg BIDPRN PRN PO 02/06/24 11:15 Acetaminophen 650 mg Q6HP PRN PO 02/06/24 11:15 02/07/24 02:00 650 MG Nitroglycerin 0.4 mg Q5MINP PRN SL 02/06/24 11:45 Sodium Chloride 10 ml QSHIFT@10,22 IV 02/10/24 22:00 02/20/24 09:19 10 ML Ceftriaxone Sodium/Dextrose 50 ml @ 50 mls/hr DAILY IV 02/14/24 10:00 Cancel Clindamycin HCl 300 mg Q6HR PO 02/16/24 12:00 02/20/24 18:00 300 MG Vancomycin HCl 200 ml @ 200 mls/hr Q10H IV 02/20/24 14:00 02/20/24 14:32 200 MLS/HR PHYSICAL EXAM: - GENERAL: Alert and oriented x 3. No acute distress. Well-nourished. - EYES: EOMI. Anicteric. - HENT: Moist mucous membranes. No scleral icterus. No cervical lymphadenopathy. - LUNGS: Clear to auscultation bilaterally. No accessory muscle use. - CARDIOVASCULAR: Regular rate and rhythm. No murmur. No JVD. - ABDOMEN: Soft, non-tender and non-distended. No palpable masses. - EXTREMITIES: No edema. Non-tender.?SKIN: No rashes or lesions. Warm. - NEUROLOGIC: No focal neurological deficits. CN II-XII grossly intact, but not individually tested. - PSYCHIATRIC: Cooperative. Appropriate mood and affect. laboratory and microbiology Laboratory Tests 02/20/24 02:48 02/07/24 04:54 Test 02/07/24 04:54 Range/Units Serum Glucose 110 H 74-106 mg/dL Problem List/Assessment/Plan Problems(with codes): (1) Cellulitis (2) Osteomyelitis (3) Pain of right great toe (4) Other acute osteomyelitis, right ankle and foot (5) Cellulitis of right toe Problem List/Assessment/Plan ID Problem List: - Deaf, hard of hearing - Sepsis related to right great toe abscess - Right great toe abscess - Right great toe cellulitis - Right great toe osteomyelitis Assessment This is a 28 y.o. male with no significant past medical history, who presents with right great toe pain, swelling, and difficulty sleeping due to excessive pain. The condition began with an abrasion on the top of his great toe related to a hangnail. On admission, labs showed leukocytosis with WBC 18.6, platelets 249, sodium 135, BUN 10, creatinine 0.77, uric acid 5.4. Vital signs: BP 148/98, HR 92, Temp 98.2F, SpO2 99% on room air. Imaging of the right foot showed soft tissue swelling and cellulitis secondary to ulceration, with questionable developing acute osteomyelitis of the underlying lateral distal phalangeal head. The patient was started empirically on vancomycin and Zosyn (piperacillin- tazobactam). Zosyn was stopped because superficial cultures were positive only for MRSA. On 02/12/2024, the patient underwent surgical debridement, which removed several cc's of pus and an abscess extending to the bone. The patient appears to be improving on vancomycin monotherapy. His WBC is now 6.2, platelets 348. No fevers or chills after surgical debridement. He has bloody drainage from his toe, well-contained within the bandage. 02/13: operative cultures are growing MRSA Plan: - Continue vancomycin - - Do not rely on superficial cultures to reduce antibiotic coverage at this time, given the location of the infection. - Oral antibiotics sufficient to cover osteomyelitis would include clindamycin 300 mg four times daily for six weeks upon discharge - Follow up in the Infectious Disease clinic in 46 weeks to determine if additional antibiotics are needed. - Continue wound care as outpatient. - Will follow up on blood cultures. Plan discussed with: Other Dietary Evaluation Review Comments: Consider Gaudencio BID for healing, monitor PO intake to meet 75% of his needs Expected Outcomes/Goals: maintain weight, healed wounds SUNITHA VELAZCO MD Feb 20, 2024 21:54
[2024-02-21] VITALS (7 sets, daily range): BP systolic 117–136; BP diastolic 56–88; PULSE 68–87; RESP 16–20; TEMP 97.7–98.2; O2SAT 93–100
[2024-02-21 05:23] LABS: Chloride 107 mmol/L (98-107); Potassium 4.8 mmol/L (3.5-5.1); Sodium 142 mmol/L (136-145)
[2024-02-21 05:24] LABS: Anion Gap 7 (5-15); Carbon Dioxide 28 mmol/L (20-31)
[2024-02-21 05:25] LABS: Calcium 9.9 mg/dL (8.7-10.4)
[2024-02-21 05:29] LABS: BUN/Creatinine Ratio 14.3 (10.0-20.0); Blood Urea Nitrogen 13 mg/dL (9-23); Glucose 97 mg/dL (74-106)
--- NOTE | 2024-02-21 07:53 | DVHPN2 ---
Reviewed: Care Plan, H&P, Labs, Medications, Previous Orders, Radiology Changes from previous H/P or p: No Changes Eyes: No Pain, No Vision change, No Conjunctivae inflammation, No Eyelid inflammation, No Other, No Redness ENT: No Ear pain, No Ear discharge, No Nose pain, No Nose discharge, No Nose congestion, No Mouth pain, No Mouth swelling, No Throat pain, No Throat swelling, No Other Cardiovascular: No Chest Pain, No Palpitations, No Orthopnea, No Paroxysmal Noc. Dyspnea, No Edema, No Lt Headedness, No Other Respiratory: No Cough, No Dry, No Shortness of breath, No SOB with excertion, No Wheezing, No Hemoptysis, No Pleuritic Pain, No Sputum, No Other Gastrointestinal: No Nausea, No Vomiting, No Abdominal Pain, No Diarrhea, No Constipation, No Melena, No Hematochezia, No Other Genitourinary: No Dysuria, No Frequency, No Incontinence, No Hematuria, No Retention, No Other Musculoskeletal: other (Right great toe pain); No neck pain, No shoulder pain, No arm pain, No back pain, No hand pain, No leg pain, No foot pain Skin: No Rash, No Lesions, No Jaundice, No Bruising, No Other Objective Vitals Vital Signs Date Time Temp Pulse Resp B/P (MAP) Pulse Ox O2 Delivery O2 Flow Rate FiO2 02/21/24 05:00 98.0 78 17 122/71 (88) 98 98.0 02/20/24 20:00 Room Air* 0 21 Intake/Output Intake and Output 02/21/24 07:00 Intake Total 2630 ml Balance 2630 ml Intake Oral 2230 ml IV Total 400 ml # Voids 5 Medications Current Medications Medications Dose Ordered Sig/Linden Route Start Time Stop Time Status Last Admin Dose Admin Sodium Chloride 1,000 ml @ 60 mls/hr [id number] IV 02/06/24 11:15 02/19/24 10:41 60 MLS/HR Ondansetron HCl 4 mg Q4HP PRN IV 02/06/24 11:15 02/06/24 20:59 4 MG Docusate Sodium 100 mg BIDPRN PRN PO 02/06/24 11:15 Acetaminophen 650 mg Q6HP PRN PO 02/06/24 11:15 02/07/24 02:00 650 MG Nitroglycerin 0.4 mg Q5MINP PRN SL 02/06/24 11:45 Sodium Chloride 10 ml QSHIFT@10,22 IV 02/10/24 22:00 02/21/24 00:04 10 ML Ceftriaxone Sodium/Dextrose 50 ml @ 50 mls/hr DAILY IV 02/14/24 10:00 Cancel Clindamycin HCl 300 mg Q6HR PO 02/16/24 12:00 02/21/24 05:40 300 MG Vancomycin HCl 200 ml @ 200 mls/hr Q10H IV 02/20/24 14:00 02/21/24 00:05 200 MLS/HR Laboratory Results Laboratory Tests 02/20/24 02:48 02/21/24 04:50 Chemistry Test 02/21/24 04:50 Calcium Level 9.9 mg/dL (8.7-10.4) Urinalysis Test 02/06/24 09:00 Urine Color Yellow (Yellow) Urine Clarity Clear (Clear) Urine pH 6.5 (5.0-9.0) Urine Specific [place] 1.037 (1.001-1.035) Urine Protein 1+ (Negative) H Urine Ketones 3+ (Negative) H Urine Blood Negative /uL (Negative) Urine Nitrite Negative (Negative) Urine Bilirubin Negative (Negative) Urine Urobilinogen Over mg/dL (Negative) Urine Leukocyte Esterase Negative /uL (Negative) Urine RBC 11 /hpf (0 - 3) Urine WBC 1 /hpf (0 - 3) Urine Squamous Epithelial Cells Few /hpf (<5) Urine Bacteria None seen /hpf (None Seen) Urine Mucus Few (None Seen) Urine Glucose Normal mg/dL (Normal) Microbiology Microbiology Date/Time Source Procedure Growth Status 02/08/24 14:28 Foot Right Gram Stain - Final Complete 02/08/24 14:28 Foot Right Anaerobic Culture - Final Complete 02/08/24 14:28 Aerobic Culture - Final Methicillin Resistant S.aureus Complete 02/06/24 12:47 Blood Blood Culture - Final NO GROWTH AFTER 5 DAYS OF INCUBATION. Complete Labs and/or images reviewed: Labs reviewed by me, Image(s) reviewed by me Assessment/Plan Assessment/Plan Sepsis secondary to cellulitis right foot Acute osteomyelitis and abscess right 1st toe: Vancomycin consult for podiatry Dr. Momin appreciated, status post incision and drainage of the abscess wound cultures showing MRSA, continue vancomycin, Rocephin added Hearing impaired MRSA screen positive: Bactroban nasal ointment Deep tissue wound cultures from the wound positive for MRSA sensitive to clindamycin ID consult by Dr. Alfonso Flores appreciated, advised to continue vancomycin and added Rocephin while in the hospital, advised clindamycin 300 mg p.o. q.i.d. for six weeks on discharge Status post I&D to bone and right foot delayed closure by angledozer operator Dr. Momin on 02/12/2024 Patient is being discharged home on clindamycin p.o. and he will follow up with discharge clinic and podiatric clinic in one week Patient was discharged home on 02/15/2024 Mother and father refused to take the patient home The person with whom he lives is admitted to [facility] real estate services administrator Sheila Gates is working on placing the patient in board and care Plan discussed with: Patient Date of Service: Feb 21, 2024 Billing Provider: AYO CERDA MD Common Visit Codes: [id number] INP/OBS CARE(HIGH) AYO CERDA MD Feb 21, 2024 07:53
--- NOTE | 2024-02-21 22:19 | DVHPN2 ---
Consult Progress Note Date Seen: Feb 21, 2024 Subjective Patient reports: Other (difficulty finding placement , hard of hearing ) Objective vital signs Vital Sign Date Time Temp Pulse Resp B/P (MAP) Pulse Ox O2 Delivery O2 Flow Rate FiO2 02/21/24 21:00 98.0 86 18 133/80 (97) 100 98.0 02/21/24 20:00 Room Air* 0 21 Total Intake and Output 02/20/24 02/20/24 02/21/24 15:00 23:00 07:00 Intake Total 600 ml 1580 ml 450 ml Balance 600 ml 1580 ml 450 ml medications Current Medications Medications Dose Ordered Sig/Linden Route Start Time Stop Time Status Last Admin Dose Admin Sodium Chloride 1,000 ml @ 60 mls/hr [id number] IV 02/06/24 11:15 02/19/24 10:41 60 MLS/HR Ondansetron HCl 4 mg Q4HP PRN IV 02/06/24 11:15 02/06/24 20:59 4 MG Docusate Sodium 100 mg BIDPRN PRN PO 02/06/24 11:15 Acetaminophen 650 mg Q6HP PRN PO 02/06/24 11:15 02/07/24 02:00 650 MG Nitroglycerin 0.4 mg Q5MINP PRN SL 02/06/24 11:45 Sodium Chloride 10 ml QSHIFT@10,22 IV 02/10/24 22:00 02/21/24 10:13 10 ML Ceftriaxone Sodium/Dextrose 50 ml @ 50 mls/hr DAILY IV 02/14/24 10:00 Cancel Clindamycin HCl 300 mg Q6HR PO 02/16/24 12:00 02/21/24 17:09 300 MG Vancomycin HCl 200 ml @ 200 mls/hr Q10H IV 02/20/24 14:00 02/21/24 20:36 200 MLS/HR PHYSICAL EXAM: - GENERAL: Alert and oriented x 3. No acute distress. Well-nourished. - EYES: EOMI. Anicteric. - HENT: Moist mucous membranes. No scleral icterus. No cervical lymphadenopathy. - LUNGS: Clear to auscultation bilaterally. No accessory muscle use. - CARDIOVASCULAR: Regular rate and rhythm. No murmur. No JVD. - ABDOMEN: Soft, non-tender and non-distended. No palpable masses. - EXTREMITIES: No edema. Non-tender.?SKIN: No rashes or lesions. Warm. - NEUROLOGIC: No focal neurological deficits. CN II-XII grossly intact, but not individually tested. - PSYCHIATRIC: Cooperative. Appropriate mood and affect. laboratory and microbiology Laboratory Tests 02/21/24 04:50 02/20/24 02:48 Test 02/21/24 04:50 Range/Units Serum Glucose 97 74-106 mg/dL Problem List/Assessment/Plan Problems(with codes): (1) Cellulitis (2) Osteomyelitis (3) Pain of right great toe (4) Other acute osteomyelitis, right ankle and foot (5) Cellulitis of right toe Problem List/Assessment/Plan ID Problem List: - Deaf, hard of hearing - Sepsis related to right great toe abscess - Right great toe abscess - Right great toe cellulitis - Right great toe osteomyelitis Assessment This is a 28 y.o. male with no significant past medical history, who presents with right great toe pain, swelling, and difficulty sleeping due to excessive pain. The condition began with an abrasion on the top of his great toe related to a hangnail. On admission, labs showed leukocytosis with WBC 18.6, platelets 249, sodium 135, BUN 10, creatinine 0.77, uric acid 5.4. Vital signs: BP 148/98, HR 92, Temp 98.2F, SpO2 99% on room air. Imaging of the right foot showed soft tissue swelling and cellulitis secondary to ulceration, with questionable developing acute osteomyelitis of the underlying lateral distal phalangeal head. The patient was started empirically on vancomycin and Zosyn (piperacillin- tazobactam). Zosyn was stopped because superficial cultures were positive only for MRSA. On 02/12/2024, the patient underwent surgical debridement, which removed several cc's of pus and an abscess extending to the bone. The patient appears to be improving on vancomycin monotherapy. His WBC is now 6.2, platelets 348. No fevers or chills after surgical debridement. He has bloody drainage from his toe, well-contained within the bandage. 02/13: operative cultures are growing MRSA Plan: - Continue vancomycin - Oral antibiotics sufficient to cover osteomyelitis would include clindamycin 300 mg four times daily for six weeks upon discharge - Follow up in the Infectious Disease clinic in 46 weeks to determine if additional antibiotics are needed. - Continue wound care as outpatient. - Will follow up on blood cultures. Plan discussed with: Other Dietary Evaluation Review Comments: Consider Gaudencio BID for healing, monitor PO intake to meet 75% of his needs Expected Outcomes/Goals: maintain weight, healed wounds SUNITHA VELAZCO MD Feb 21, 2024 22:19
[2024-02-22] VITALS (8 sets, daily range): BP systolic 105–134; BP diastolic 64–82; PULSE 66–96; RESP 15–20; TEMP 97.7–98.6; O2SAT 97–100
--- NOTE | 2024-02-22 08:21 | DVHPN2 ---
Reviewed: Care Plan, H&P, Labs, Medications, Previous Orders, Radiology Changes from previous H/P or p: No Changes Eyes: No Pain, No Vision change, No Conjunctivae inflammation, No Eyelid inflammation, No Other, No Redness ENT: No Ear pain, No Ear discharge, No Nose pain, No Nose discharge, No Nose congestion, No Mouth pain, No Mouth swelling, No Throat pain, No Throat swelling, No Other Cardiovascular: No Chest Pain, No Palpitations, No Orthopnea, No Paroxysmal Noc. Dyspnea, No Edema, No Lt Headedness, No Other Respiratory: No Cough, No Dry, No Shortness of breath, No SOB with excertion, No Wheezing, No Hemoptysis, No Pleuritic Pain, No Sputum, No Other Gastrointestinal: No Nausea, No Vomiting, No Abdominal Pain, No Diarrhea, No Constipation, No Melena, No Hematochezia, No Other Genitourinary: No Dysuria, No Frequency, No Incontinence, No Hematuria, No Retention, No Other Musculoskeletal: other (Right great toe pain); No neck pain, No shoulder pain, No arm pain, No back pain, No hand pain, No leg pain, No foot pain Skin: No Rash, No Lesions, No Jaundice, No Bruising, No Other Objective Vitals Vital Signs Date Time Temp Pulse Resp B/P (MAP) Pulse Ox O2 Delivery O2 Flow Rate FiO2 02/22/24 06:00 98.6 83 16 123/71 (88) 99 98.6 02/21/24 20:00 Room Air* 0 21 Intake/Output Intake and Output 02/22/24 07:00 Intake Total 1130 ml Balance 1130 ml Intake Oral 930 ml IV Total 200 ml # Voids 8 # Bowel Movements 2 Medications Current Medications Medications Dose Ordered Sig/Linden Route Start Time Stop Time Status Last Admin Dose Admin Sodium Chloride 1,000 ml @ 60 mls/hr [id number] IV 02/06/24 11:15 02/19/24 10:41 60 MLS/HR Ondansetron HCl 4 mg Q4HP PRN IV 02/06/24 11:15 02/06/24 20:59 4 MG Docusate Sodium 100 mg BIDPRN PRN PO 02/06/24 11:15 Acetaminophen 650 mg Q6HP PRN PO 02/06/24 11:15 02/07/24 02:00 650 MG Nitroglycerin 0.4 mg Q5MINP PRN SL 02/06/24 11:45 Sodium Chloride 10 ml QSHIFT@10,22 IV 02/10/24 22:00 02/22/24 05:38 10 ML Ceftriaxone Sodium/Dextrose 50 ml @ 50 mls/hr DAILY IV 02/14/24 10:00 Cancel Clindamycin HCl 300 mg Q6HR PO 02/16/24 12:00 02/22/24 05:39 300 MG Vancomycin HCl 200 ml @ 200 mls/hr Q10H IV 02/20/24 14:00 02/22/24 05:40 200 MLS/HR Laboratory Results Laboratory Tests 02/20/24 02:48 02/21/24 04:50 Urinalysis Test 02/06/24 09:00 Urine Color Yellow (Yellow) Urine Clarity Clear (Clear) Urine pH 6.5 (5.0-9.0) Urine Specific [place] 1.037 (1.001-1.035) Urine Protein 1+ (Negative) H Urine Ketones 3+ (Negative) H Urine Blood Negative /uL (Negative) Urine Nitrite Negative (Negative) Urine Bilirubin Negative (Negative) Urine Urobilinogen Over mg/dL (Negative) Urine Leukocyte Esterase Negative /uL (Negative) Urine RBC 11 /hpf (0 - 3) Urine WBC 1 /hpf (0 - 3) Urine Squamous Epithelial Cells Few /hpf (<5) Urine Bacteria None seen /hpf (None Seen) Urine Mucus Few (None Seen) Urine Glucose Normal mg/dL (Normal) Microbiology Microbiology Date/Time Source Procedure Growth Status 02/08/24 14:28 Foot Right Gram Stain - Final Complete 02/08/24 14:28 Foot Right Anaerobic Culture - Final Complete 02/08/24 14:28 Aerobic Culture - Final Methicillin Resistant S.aureus Complete 02/06/24 12:47 Blood Blood Culture - Final NO GROWTH AFTER 5 DAYS OF INCUBATION. Complete Assessment/Plan Assessment/Plan Sepsis secondary to cellulitis right foot Acute osteomyelitis and abscess right 1st toe: Vancomycin consult for podiatry Dr. Momin appreciated, status post incision and drainage of the abscess wound cultures showing MRSA, continue vancomycin, Rocephin added Hearing impaired MRSA screen positive: Bactroban nasal ointment Deep tissue wound cultures from the wound positive for MRSA sensitive to clindamycin ID consult by Dr. Alfonso Flores appreciated, advised to continue vancomycin and added Rocephin while in the hospital, advised clindamycin 300 mg p.o. q.i.d. for six weeks on discharge Status post I&D to bone and right foot delayed closure by executive compensation analyst Dr. Momin on 02/12/2024 Patient is being discharged home on clindamycin p.o. and he will follow up with discharge clinic and podiatric clinic in one week Patient was discharged home on 02/15/2024 Mother and father refused to take the patient home The person with whom he lives is admitted to [facility] dining services manager Sheila Gates is working on placing the patient in board and care Plan discussed with: Patient Date of Service: Feb 22, 2024 Billing Provider: AYO CERDA MD Common Visit Codes: [id number] INP/OBS CARE(HIGH) AYO CERDA MD Feb 22, 2024 08:21
[2024-02-22] MEDS: VANCOMYCIN 1GM/200ML PREMIX 200 ML IV SCH (14:00)
[2024-02-23] VITALS (8 sets, daily range): BP systolic 107–131; BP diastolic 78–89; PULSE 72–93; RESP 17–18; TEMP 97.7–98.8; O2SAT 95–99
--- NOTE | 2024-02-23 08:34 | DVHPN2 ---
Reviewed: Care Plan, H&P, Labs, Medications, Previous Orders, Radiology Changes from previous H/P or p: No Changes Eyes: No Pain, No Vision change, No Conjunctivae inflammation, No Eyelid inflammation, No Other, No Redness ENT: No Ear pain, No Ear discharge, No Nose pain, No Nose discharge, No Nose congestion, No Mouth pain, No Mouth swelling, No Throat pain, No Throat swelling, No Other Cardiovascular: No Chest Pain, No Palpitations, No Orthopnea, No Paroxysmal Noc. Dyspnea, No Edema, No Lt Headedness, No Other Respiratory: No Cough, No Dry, No Shortness of breath, No SOB with excertion, No Wheezing, No Hemoptysis, No Pleuritic Pain, No Sputum, No Other Gastrointestinal: No Nausea, No Vomiting, No Abdominal Pain, No Diarrhea, No Constipation, No Melena, No Hematochezia, No Other Genitourinary: No Dysuria, No Frequency, No Incontinence, No Hematuria, No Retention, No Other Musculoskeletal: other (Right great toe pain); No neck pain, No shoulder pain, No arm pain, No back pain, No hand pain, No leg pain, No foot pain Skin: No Rash, No Lesions, No Jaundice, No Bruising, No Other Objective Vitals Vital Signs Date Time Temp Pulse Resp B/P (MAP) Pulse Ox O2 Delivery O2 Flow Rate FiO2 02/23/24 05:00 98.3 82 18 109/81 (90) 99 98.3 02/22/24 20:00 Room Air* 0 21 Intake/Output Intake and Output 02/23/24 07:00 Intake Total 2450 ml Balance 2450 ml Intake Oral 1850 ml IV Total 600 ml # Voids 5 # Bowel Movements 4 Medications Current Medications Medications Dose Ordered Sig/Linden Route Start Time Stop Time Status Last Admin Dose Admin Sodium Chloride 1,000 ml @ 60 mls/hr [id number] IV 02/06/24 11:15 02/22/24 10:35 60 MLS/HR Ondansetron HCl 4 mg Q4HP PRN IV 02/06/24 11:15 02/06/24 20:59 4 MG Docusate Sodium 100 mg BIDPRN PRN PO 02/06/24 11:15 Acetaminophen 650 mg Q6HP PRN PO 02/06/24 11:15 02/07/24 02:00 650 MG Nitroglycerin 0.4 mg Q5MINP PRN SL 02/06/24 11:45 Sodium Chloride 10 ml QSHIFT@ IV 02/10/24 22:00 02/23/24 05:54 10 ML Ceftriaxone Sodium/Dextrose 50 ml @ 50 mls/hr DAILY IV 02/14/24 10:00 Cancel Clindamycin HCl 300 mg Q6HR PO 02/16/24 12:00 02/23/24 06:06 300 MG Laboratory Results Laboratory Tests 02/20/24 02:48 02/21/24 04:50 Urinalysis Test 02/06/24 09:00 Urine Color Yellow (Yellow) Urine Clarity Clear (Clear) Urine pH 6.5 (5.0-9.0) Urine Specific [place] 1.037 (1.001-1.035) Urine Protein 1+ (Negative) H Urine Ketones 3+ (Negative) H Urine Blood Negative /uL (Negative) Urine Nitrite Negative (Negative) Urine Bilirubin Negative (Negative) Urine Urobilinogen Over mg/dL (Negative) Urine Leukocyte Esterase Negative /uL (Negative) Urine RBC 11 /hpf (0 - 3) Urine WBC 1 /hpf (0 - 3) Urine Squamous Epithelial Cells Few /hpf (<5) Urine Bacteria None seen /hpf (None Seen) Urine Mucus Few (None Seen) Urine Glucose Normal mg/dL (Normal) Microbiology Microbiology Date/Time Source Procedure Growth Status 02/08/24 14:28 Foot Right Gram Stain - Final Complete 02/08/24 14:28 Foot Right Anaerobic Culture - Final Complete 02/08/24 14:28 Aerobic Culture - Final Methicillin Resistant S.aureus Complete 02/06/24 12:47 Blood Blood Culture - Final NO GROWTH AFTER 5 DAYS OF INCUBATION. Complete Labs and/or images reviewed: Labs reviewed by me, Image(s) reviewed by me Assessment/Plan Assessment/Plan Sepsis secondary to cellulitis right foot Acute osteomyelitis and abscess right 1st toe: Vancomycin consult for podiatry Dr. Momin appreciated, status post incision and drainage of the abscess wound cultures showing MRSA, continue vancomycin, Rocephin added Hearing impaired MRSA screen positive: Bactroban nasal ointment Deep tissue wound cultures from the wound positive for MRSA sensitive to clindamycin ID consult by Dr. Alfonso Flores appreciated, advised to continue vancomycin and added Rocephin while in the hospital, advised clindamycin 300 mg p.o. q.i.d. for six weeks on discharge Status post I&D to bone and right foot delayed closure by contract analyst Dr. Momin on 02/12/2024 Patient is being discharged home on clindamycin p.o. and he will follow up with discharge clinic and podiatric clinic in one week Patient was discharged home on 02/15/2024 Mother and father refused to take the patient home The person with whom he lives is admitted to [facility] visitor services representative Sheila Gates is working on placing the patient in board and care Examined today: No new complaints Plan discussed with: Patient Date of Service: Feb 23, 2024 Billing Provider: AYO CERDA MD Common Visit Codes: [id number] INP/OBS CARE(HIGH) AYO CERDA MD Feb 23, 2024 08:34
--- NOTE | 2024-02-23 12:19 | DVHPN2 ---
Consult Progress Note Date Seen: Feb 22, 2024 Subjective Patient reports: Other (stopped vancomycin to day and now just on oral antibiotics ) Objective vital signs Vital Sign Date Time Temp Pulse Resp B/P (MAP) Pulse Ox O2 Delivery O2 Flow Rate FiO2 02/23/24 09:00 98.0 79 17 125/78 (94) 95 98.0 02/23/24 08:10 Room Air* 0 21 Total Intake and Output 02/22/24 02/22/24 02/23/24 15:00 23:00 07:00 Intake Total 1200 ml 1250 ml Balance 1200 ml 1250 ml medications Current Medications Medications Dose Ordered Sig/Linden Route Start Time Stop Time Status Last Admin Dose Admin Sodium Chloride 1,000 ml @ 60 mls/hr [id number] IV 02/06/24 11:15 02/22/24 10:35 60 MLS/HR Ondansetron HCl 4 mg Q4HP PRN IV 02/06/24 11:15 02/06/24 20:59 4 MG Docusate Sodium 100 mg BIDPRN PRN PO 02/06/24 11:15 Acetaminophen 650 mg Q6HP PRN PO 02/06/24 11:15 02/07/24 02:00 650 MG Nitroglycerin 0.4 mg Q5MINP PRN SL 02/06/24 11:45 Sodium Chloride 10 ml QSHIFT@10,22 IV 02/10/24 22:00 02/23/24 05:54 10 ML Ceftriaxone Sodium/Dextrose 50 ml @ 50 mls/hr DAILY IV 02/14/24 10:00 Cancel Clindamycin HCl 300 mg Q6HR PO 02/16/24 12:00 02/23/24 11:22 300 MG PHYSICAL EXAM: - GENERAL: Alert and oriented x 3. No acute distress. Well-nourished. - EYES: EOMI. Anicteric. - HENT: Moist mucous membranes. No scleral icterus. No cervical lymphadenopathy. - LUNGS: Clear to auscultation bilaterally. No accessory muscle use. - CARDIOVASCULAR: Regular rate and rhythm. No murmur. No JVD. - ABDOMEN: Soft, non-tender and non-distended. No palpable masses. - EXTREMITIES: No edema. Non-tender.?SKIN: No rashes or lesions. Warm. - NEUROLOGIC: No focal neurological deficits. CN II-XII grossly intact, but not individually tested. - PSYCHIATRIC: Cooperative. Appropriate mood and affect. laboratory and microbiology Laboratory Tests 02/21/24 04:50 02/20/24 02:48 Test 02/21/24 04:50 Range/Units Serum Glucose 97 74-106 mg/dL Problem List/Assessment/Plan Problems(with codes): (1) Cellulitis of right toe (2) Other acute osteomyelitis, right ankle and foot (3) Pain of right great toe (4) Osteomyelitis (5) Cellulitis Problem List/Assessment/Plan ID Problem List: - Deaf, hard of hearing - Sepsis related to right great toe abscess - Right great toe abscess - Right great toe cellulitis - Right great toe osteomyelitis Assessment This is a 28 y.o. male with no significant past medical history, who presents with right great toe pain, swelling, and difficulty sleeping due to excessive pain. The condition began with an abrasion on the top of his great toe related to a hangnail. On admission, labs showed leukocytosis with WBC 18.6, platelets 249, sodium 135, BUN 10, creatinine 0.77, uric acid 5.4. Vital signs: BP 148/98, HR 92, Temp 98.2F, SpO2 99% on room air. Imaging of the right foot showed soft tissue swelling and cellulitis secondary to ulceration, with questionable developing acute osteomyelitis of the underlying lateral distal phalangeal head. The patient was started empirically on vancomycin and Zosyn (piperacillin- tazobactam). Zosyn was stopped because superficial cultures were positive only for MRSA. On 02/12/2024, the patient underwent surgical debridement, which removed several cc's of pus and an abscess extending to the bone. The patient appears to be improving on vancomycin monotherapy. His WBC is now 6.2, platelets 348. No fevers or chills after surgical debridement. He has bloody drainage from his toe, well-contained within the bandage. 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 - Continue wound care as outpatient. - Will follow up on blood cultures. Plan discussed with: Other Dietary Evaluation Review Comments: Consider Gaudencio BID for healing, monitor PO intake to meet 75% of his needs Expected Outcomes/Goals: maintain weight, healed wounds SUNITHA VELAZCO MD Feb 23, 2024 12:19
--- NOTE | 2024-02-23 22:13 | DVHPN2 ---
Consult Progress Note Date Seen: Feb 23, 2024 Subjective Patient reports: No new complaints (tolerating clydomycin withour any issues) Objective vital signs Vital Sign Date Time Temp Pulse Resp B/P (MAP) Pulse Ox O2 Delivery O2 Flow Rate FiO2 02/23/24 21:00 98.8 78 18 127/81 (96) 98 98.8 02/23/24 08:10 Room Air* 0 21 Total Intake and Output 02/22/24 02/22/24 02/23/24 15:00 23:00 07:00 Intake Total 1200 ml 1250 ml Balance 1200 ml 1250 ml medications Current Medications Medications Dose Ordered Sig/Linden Route Start Time Stop Time Status Last Admin Dose Admin Sodium Chloride 1,000 ml @ 60 mls/hr [id number] IV 02/06/24 11:15 02/22/24 10:35 60 MLS/HR Ondansetron HCl 4 mg Q4HP PRN IV 02/06/24 11:15 02/06/24 20:59 4 MG Docusate Sodium 100 mg BIDPRN PRN PO 02/06/24 11:15 Acetaminophen 650 mg Q6HP PRN PO 02/06/24 11:15 02/07/24 02:00 650 MG Nitroglycerin 0.4 mg Q5MINP PRN SL 02/06/24 11:45 Sodium Chloride 10 ml QSHIFT@10,22 IV 02/10/24 22:00 02/23/24 21:56 10 ML Ceftriaxone Sodium/Dextrose 50 ml @ 50 mls/hr DAILY IV 02/14/24 10:00 Cancel Clindamycin HCl 300 mg Q6HR PO 02/16/24 12:00 02/23/24 17:47 300 MG PHYSICAL EXAM: - GENERAL: Alert and oriented x 3. No acute distress. Well-nourished. - EYES: EOMI. Anicteric. - HENT: Moist mucous membranes. No scleral icterus. No cervical lymphadenopathy. - LUNGS: Clear to auscultation bilaterally. No accessory muscle use. - CARDIOVASCULAR: Regular rate and rhythm. No murmur. No JVD. - ABDOMEN: Soft, non-tender and non-distended. No palpable masses. - EXTREMITIES: No edema. Non-tender.?SKIN: No rashes or lesions. Warm. - NEUROLOGIC: No focal neurological deficits. CN II-XII grossly intact, but not individually tested. - PSYCHIATRIC: Cooperative. Appropriate mood and affect. laboratory and microbiology Laboratory Tests 02/21/24 04:50 02/20/24 02:48 Test 02/21/24 04:50 Range/Units Serum Glucose 97 74-106 mg/dL Problem List/Assessment/Plan Problems(with codes): (1) Cellulitis of right toe (2) Other acute osteomyelitis, right ankle and foot (3) Pain of right great toe (4) Osteomyelitis (5) Cellulitis Problem List/Assessment/Plan ID Problem List: - Deaf, hard of hearing - Sepsis related to right great toe abscess - Right great toe abscess - Right great toe cellulitis - Right great toe osteomyelitis Assessment This is a 28 y.o. male with no significant past medical history, who presents with right great toe pain, swelling, and difficulty sleeping due to excessive pain. The condition began with an abrasion on the top of his great toe related to a hangnail. On admission, labs showed leukocytosis with WBC 18.6, platelets 249, sodium 135, BUN 10, creatinine 0.77, uric acid 5.4. Vital signs: BP 148/98, HR 92, Temp 98.2F, SpO2 99% on room air. Imaging of the right foot showed soft tissue swelling and cellulitis secondary to ulceration, with questionable developing acute osteomyelitis of the underlying lateral distal phalangeal head. The patient was started empirically on vancomycin and Zosyn (piperacillin- tazobactam). Zosyn was stopped because superficial cultures were positive only for MRSA. On 02/12/2024, the patient underwent surgical debridement, which removed several cc's of pus and an abscess extending to the bone. The patient appears to be improving on vancomycin monotherapy. His WBC is now 6.2, platelets 348. No fevers or chills after surgical debridement. He has bloody drainage from his toe, well-contained within the bandage. 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 - Continue wound care as outpatient. - Will follow up on blood cultures. Plan discussed with: Other Dietary Evaluation Review Comments: Consider Gaudencio BID for healing, monitor PO intake to meet 75% of his needs Expected Outcomes/Goals: maintain weight, healed wounds SUNITHA VELAZCO MD Feb 23, 2024 22:13
[2024-02-24 01:00] VITALS: BP 130/78; PULSE 75; RESP 18; TEMP 98.4; O2SAT 98
[2024-02-24 05:00] VITALS: BP 125/83; PULSE 90; RESP 18; TEMP 98.4; O2SAT 99
--- NOTE | 2024-02-24 08:08 | DVHPN2 ---
Reviewed: Care Plan, H&P, Labs, Medications, Previous Orders, Radiology Changes from previous H/P or p: No Changes Eyes: No Pain, No Vision change, No Conjunctivae inflammation, No Eyelid inflammation, No Other, No Redness ENT: No Ear pain, No Ear discharge, No Nose pain, No Nose discharge, No Nose congestion, No Mouth pain, No Mouth swelling, No Throat pain, No Throat swelling, No Other Cardiovascular: No Chest Pain, No Palpitations, No Orthopnea, No Paroxysmal Noc. Dyspnea, No Edema, No Lt Headedness, No Other Respiratory: No Cough, No Dry, No Shortness of breath, No SOB with excertion, No Wheezing, No Hemoptysis, No Pleuritic Pain, No Sputum, No Other Gastrointestinal: No Nausea, No Vomiting, No Abdominal Pain, No Diarrhea, No Constipation, No Melena, No Hematochezia, No Other Genitourinary: No Dysuria, No Frequency, No Incontinence, No Hematuria, No Retention, No Other Musculoskeletal: other (Right great toe pain); No neck pain, No shoulder pain, No arm pain, No back pain, No hand pain, No leg pain, No foot pain Skin: No Rash, No Lesions, No Jaundice, No Bruising, No Other Objective Vitals Vital Signs Date Time Temp Pulse Resp B/P (MAP) Pulse Ox O2 Delivery O2 Flow Rate FiO2 02/24/24 05:00 98.4 90 18 125/83 (97) 99 98.4 02/23/24 20:00 Room Air* 0 21 Intake/Output Intake and Output 02/24/24 07:00 Intake Total 1900 ml Balance 1900 ml Intake Oral 1900 ml # Voids 6 # Bowel Movements 2 Medications Current Medications Medications Dose Ordered Sig/Linden Route Start Time Stop Time Status Last Admin Dose Admin Sodium Chloride 1,000 ml @ 60 mls/hr [id number] IV 02/06/24 11:15 02/22/24 10:35 60 MLS/HR Ondansetron HCl 4 mg Q4HP PRN IV 02/06/24 11:15 02/06/24 20:59 4 MG Docusate Sodium 100 mg BIDPRN PRN PO 02/06/24 11:15 Acetaminophen 650 mg Q6HP PRN PO 02/06/24 11:15 02/07/24 02:00 650 MG Nitroglycerin 0.4 mg Q5MINP PRN SL 02/06/24 11:45 Sodium Chloride 10 ml QSHIFT@,22 IV 02/10/24 22:00 02/23/24 21:56 10 ML Ceftriaxone Sodium/Dextrose 50 ml @ 50 mls/hr DAILY IV 02/14/24 10:00 Cancel Clindamycin HCl 300 mg Q6HR PO 02/16/24 12:00 02/24/24 06:11 300 MG Laboratory Results Laboratory Tests 02/20/24 02:48 02/21/24 04:50 Urinalysis Test 02/06/24 09:00 Urine Color Yellow (Yellow) Urine Clarity Clear (Clear) Urine pH 6.5 (5.0-9.0) Urine Specific [place] 1.037 (1.001-1.035) Urine Protein 1+ (Negative) H Urine Ketones 3+ (Negative) H Urine Blood Negative /uL (Negative) Urine Nitrite Negative (Negative) Urine Bilirubin Negative (Negative) Urine Urobilinogen Over mg/dL (Negative) Urine Leukocyte Esterase Negative /uL (Negative) Urine RBC 11 /hpf (0 - 3) Urine WBC 1 /hpf (0 - 3) Urine Squamous Epithelial Cells Few /hpf (<5) Urine Bacteria None seen /hpf (None Seen) Urine Mucus Few (None Seen) Urine Glucose Normal mg/dL (Normal) Microbiology Microbiology Date/Time Source Procedure Growth Status 02/08/24 14:28 Foot Right Gram Stain - Final Complete 02/08/24 14:28 Foot Right Anaerobic Culture - Final Complete 02/08/24 14:28 Aerobic Culture - Final Methicillin Resistant S.aureus Complete 02/06/24 12:47 Blood Blood Culture - Final NO GROWTH AFTER 5 DAYS OF INCUBATION. Complete Assessment/Plan Assessment/Plan Sepsis secondary to cellulitis right foot Acute osteomyelitis and abscess right 1st toe: Vancomycin consult for podiatry Dr. Momin appreciated, status post incision and drainage of the abscess wound cultures showing MRSA, continue vancomycin, Rocephin added Hearing impaired MRSA screen positive: Bactroban nasal ointment Deep tissue wound cultures from the wound positive for MRSA sensitive to clindamycin ID consult by Dr. Alfonso Flroes appreciated, advised to continue vancomycin and added Rocephin while in the hospital, advised clindamycin 300 mg p.o. q.i.d. for six weeks on discharge Status post I&D to bone and right foot delayed closure by field map technician Dr. Momin on 02/12/2024 Patient is being discharged home on clindamycin p.o. and he will follow up with discharge clinic and podiatric clinic in one week Patient was discharged home on 02/15/2024 Mother and father refused to take the patient home The person with whom he lives is admitted to [facility] client services account manager Sheila Gates is working on placing the patient in board and care Examined today: No new complaints Plan discussed with: Patient Date of Service: Feb 24, 2024 Billing Provider: AYO CERDA MD Common Visit Codes: [id number] INP/OBS CARE(LOW) AYO CERDA MD Feb 24, 2024 08:08
[2024-02-24 09:00] VITALS: BP 126/78; PULSE 96; RESP 20; TEMP 98.6; O2SAT 98
[2024-02-24 13:00] VITALS: BP 109/79; PULSE 94; RESP 20; TEMP 97.9; O2SAT 98
[2024-02-24 17:00] VITALS: BP 116/70; PULSE 75; RESP 20; TEMP 98.4; O2SAT 98
[2024-02-24 21:00] VITALS: BP 117/79; PULSE 74; RESP 20; TEMP 98.6; O2SAT 98
--- NOTE | 2024-02-24 22:00 | DVHPN2 ---
Consult Progress Note Date Seen: Feb 24, 2024 Subjective Patient reports: No new complaints (patient wants to go home , but clarified he is unlikely to go home as he has noone to look after him ) Objective vital signs Vital Sign Date Time Temp Pulse Resp B/P (MAP) Pulse Ox O2 Delivery O2 Flow Rate FiO2 02/24/24 21:00 98.6 74 20 117/79 (92) 98 98.6 02/24/24 20:00 Room Air* 0 21 Total Intake and Output 02/23/24 02/23/24 02/24/24 15:00 23:00 07:00 Intake Total 1100 ml 800 ml Balance 1100 ml 800 ml medications Current Medications Medications Dose Ordered Sig/Linden Route Start Time Stop Time Status Last Admin Dose Admin Sodium Chloride 1,000 ml @ 60 mls/hr [id number] IV 02/06/24 11:15 02/22/24 10:35 60 MLS/HR Ondansetron HCl 4 mg Q4HP PRN IV 02/06/24 11:15 02/06/24 20:59 4 MG Docusate Sodium 100 mg BIDPRN PRN PO 02/06/24 11:15 Acetaminophen 650 mg Q6HP PRN PO 02/06/24 11:15 02/07/24 02:00 650 MG Nitroglycerin 0.4 mg Q5MINP PRN SL 02/06/24 11:45 Sodium Chloride 10 ml QSHIFT@10,22 IV 02/10/24 22:00 02/24/24 09:58 10 ML Ceftriaxone Sodium/Dextrose 50 ml @ 50 mls/hr DAILY IV 02/14/24 10:00 Cancel Clindamycin HCl 300 mg Q6HR PO 02/16/24 12:00 02/24/24 18:05 300 MG PHYSICAL EXAM: - GENERAL: Alert and oriented x 3. No acute distress. Well-nourished. - EYES: EOMI. Anicteric. - HENT: Moist mucous membranes. No scleral icterus. No cervical lymphadenopathy. - LUNGS: Clear to auscultation bilaterally. No accessory muscle use. - CARDIOVASCULAR: Regular rate and rhythm. No murmur. No JVD. - ABDOMEN: Soft, non-tender and non-distended. No palpable masses. - EXTREMITIES: No edema. Non-tender.?SKIN: No rashes or lesions. Warm. - NEUROLOGIC: No focal neurological deficits. CN II-XII grossly intact, but not individually tested. - PSYCHIATRIC: Cooperative. Appropriate mood and affect. laboratory and microbiology Laboratory Tests 02/21/24 04:50 02/20/24 02:48 Test 02/21/24 04:50 Range/Units Serum Glucose 97 74-106 mg/dL Problem List/Assessment/Plan Problems(with codes): (1) Cellulitis (2) Osteomyelitis (3) Pain of right great toe (4) Other acute osteomyelitis, right ankle and foot (5) Cellulitis of right toe Problem List/Assessment/Plan ID Problem List: - Deaf, hard of hearing - Sepsis related to right great toe abscess - Right great toe abscess - Right great toe cellulitis - Right great toe osteomyelitis Assessment This is a 28 y.o. male with no significant past medical history, who presents with right great toe pain, swelling, and difficulty sleeping due to excessive pain. The condition began with an abrasion on the top of his great toe related to a hangnail. On admission, labs showed leukocytosis with WBC 18.6, platelets 249, sodium 135, BUN 10, creatinine 0.77, uric acid 5.4. Vital signs: BP 148/98, HR 92, Temp 98.2F, SpO2 99% on room air. Imaging of the right foot showed soft tissue swelling and cellulitis secondary to ulceration, with questionable developing acute osteomyelitis of the underlying lateral distal phalangeal head. The patient was started empirically on vancomycin and Zosyn (piperacillin- tazobactam). Zosyn was stopped because superficial cultures were positive only for MRSA. On 02/12/2024, the patient underwent surgical debridement, which removed several cc's of pus and an abscess extending to the bone. The patient appears to be improving on vancomycin monotherapy. His WBC is now 6.2, platelets 348. No fevers or chills after surgical debridement. He has bloody drainage from his toe, well-contained within the bandage. 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 - Continue wound care as outpatient. - Will follow up on blood cultures. Plan discussed with: Other Dietary Evaluation Review Comments: Consider Gaudencio BID for healing, monitor PO intake to meet 75% of his needs Expected Outcomes/Goals: maintain weight, healed wounds SUNITHA VELAZCO MD Feb 24, 2024 22:00
[2024-02-25 01:00] VITALS: BP 126/77; PULSE 77; RESP 20; TEMP 98.9; O2SAT 96
[2024-02-25 05:00] VITALS: BP 126/76; PULSE 80; RESP 20; TEMP 98.9; O2SAT 99
[2024-02-25 08:00] VITALS: PULSE 91; RESP 20
--- NOTE | 2024-02-25 08:16 | DVHPN2 ---
Reviewed: Care Plan, H&P, Labs, Medications, Previous Orders, Radiology Changes from previous H/P or p: No Changes Eyes: No Pain, No Vision change, No Conjunctivae inflammation, No Eyelid inflammation, No Other, No Redness ENT: No Ear pain, No Ear discharge, No Nose pain, No Nose discharge, No Nose congestion, No Mouth pain, No Mouth swelling, No Throat pain, No Throat swelling, No Other Cardiovascular: No Chest Pain, No Palpitations, No Orthopnea, No Paroxysmal Noc. Dyspnea, No Edema, No Lt Headedness, No Other Respiratory: No Cough, No Dry, No Shortness of breath, No SOB with excertion, No Wheezing, No Hemoptysis, No Pleuritic Pain, No Sputum, No Other Gastrointestinal: No Nausea, No Vomiting, No Abdominal Pain, No Diarrhea, No Constipation, No Melena, No Hematochezia, No Other Genitourinary: No Dysuria, No Frequency, No Incontinence, No Hematuria, No Retention, No Other Musculoskeletal: other (Right great toe pain); No neck pain, No shoulder pain, No arm pain, No back pain, No hand pain, No leg pain, No foot pain Skin: No Rash, No Lesions, No Jaundice, No Bruising, No Other Objective Vitals Vital Signs Date Time Temp Pulse Resp B/P (MAP) Pulse Ox O2 Delivery O2 Flow Rate FiO2 02/25/24 05:00 98.9 80 20 126/76 (93) 99 98.9 02/24/24 20:00 Room Air* 0 21 Intake/Output Intake and Output 02/25/24 07:00 Intake Total 1700 ml Output Total 600 ml Balance 1100 ml Intake Oral 1700 ml Output Urine Total 600 ml # Voids 2 # Bowel Movements 2 Medications Current Medications Medications Dose Ordered Sig/Linden Route Start Time Stop Time Status Last Admin Dose Admin Sodium Chloride 1,000 ml @ 60 mls/hr [id number] IV 02/06/24 11:15 02/25/24 05:15 60 MLS/HR Ondansetron HCl 4 mg Q4HP PRN IV 02/06/24 11:15 02/06/24 20:59 4 MG Docusate Sodium 100 mg BIDPRN PRN PO 02/06/24 11:15 Acetaminophen 650 mg Q6HP PRN PO 02/06/24 11:15 02/07/24 02:00 650 MG Nitroglycerin 0.4 mg Q5MINP PRN SL 02/06/24 11:45 Sodium Chloride 10 ml QSHIFT@,22 IV 02/10/24 22:00 02/24/24 22:23 10 ML Ceftriaxone Sodium/Dextrose 50 ml @ 50 mls/hr DAILY IV 02/14/24 10:00 Cancel Clindamycin HCl 300 mg Q6HR PO 02/16/24 12:00 02/25/24 05:49 300 MG Laboratory Results Laboratory Tests 02/20/24 02:48 02/21/24 04:50 Urinalysis Test 02/06/24 09:00 Urine Color Yellow (Yellow) Urine Clarity Clear (Clear) Urine pH 6.5 (5.0-9.0) Urine Specific [place] 1.037 (1.001-1.035) Urine Protein 1+ (Negative) H Urine Ketones 3+ (Negative) H Urine Blood Negative /uL (Negative) Urine Nitrite Negative (Negative) Urine Bilirubin Negative (Negative) Urine Urobilinogen Over mg/dL (Negative) Urine Leukocyte Esterase Negative /uL (Negative) Urine RBC 11 /hpf (0 - 3) Urine WBC 1 /hpf (0 - 3) Urine Squamous Epithelial Cells Few /hpf (<5) Urine Bacteria None seen /hpf (None Seen) Urine Mucus Few (None Seen) Urine Glucose Normal mg/dL (Normal) Microbiology Microbiology Date/Time Source Procedure Growth Status 02/08/24 14:28 Foot Right Gram Stain - Final Complete 02/08/24 14:28 Foot Right Anaerobic Culture - Final Complete 02/08/24 14:28 Aerobic Culture - Final Methicillin Resistant S.aureus Complete 02/06/24 12:47 Blood Blood Culture - Final NO GROWTH AFTER 5 DAYS OF INCUBATION. Complete Labs and/or images reviewed: Labs reviewed by me, Image(s) reviewed by me Assessment/Plan Assessment/Plan Sepsis secondary to cellulitis right foot Acute osteomyelitis and abscess right 1st toe: Patient on clindamycin 300 mg p.o. q.6 placed by ID Hearing impaired MRSA screen positive: Bactroban nasal ointment Deep tissue wound cultures from the wound positive for MRSA sensitive to clindamycin ID consult by Dr. Alfonso Flores appreciated, advised to continue vancomycin and added Rocephin while in the hospital, advised clindamycin 300 mg p.o. q.i.d. for six weeks on discharge Status post I&D to bone and right foot delayed closure by state fire marshal Dr. Momin on 02/12/2024 Patient is being discharged home on clindamycin p.o. and he will follow up with discharge clinic and podiatric clinic in one week Patient was discharged home on 02/15/2024 Mother and father refused to take the patient home The person with whom he lives is admitted to [facility] academic services coordinator Sheila Gates is working on placing the patient in board and care Examined today: No new complaints Plan discussed with: Patient Date of Service: Feb 25, 2024 Billing Provider: AYO CERDA MD Common Visit Codes: [id number] INP/OBS CARE(LOW) AYO CERDA MD Feb 25, 2024 08:16
[2024-02-25 09:00] VITALS: BP 128/74; PULSE 91; RESP 20; TEMP 98.2; O2SAT 97
[2024-02-25 17:00] VITALS: BP 127/73; PULSE 103; RESP 20; TEMP 98.3; O2SAT 100
[2024-02-25 21:00] VITALS: BP 145/83; PULSE 102; RESP 19; TEMP 97.7; O2SAT 95
--- NOTE | 2024-02-25 21:46 | DVHPN2 ---
Consult Progress Note Date Seen: Feb 25, 2024 Subjective Patient reports: No new complaints (Tolerating clydomycin without any issues ) Objective vital signs Vital Sign Date Time Temp Pulse Resp B/P (MAP) Pulse Ox O2 Delivery O2 Flow Rate FiO2 02/25/24 19:56 Room Air* 0 21 02/25/24 17:00 98.3 103 20 127/73 (91) 100 98.3 Total Intake and Output 02/24/24 02/24/24 02/25/24 15:00 23:00 07:00 Intake Total 800 ml 900 ml Output Total 600 ml Balance 200 ml 900 ml medications Current Medications Medications Dose Ordered Sig/Linden Route Start Time Stop Time Status Last Admin Dose Admin Sodium Chloride 1,000 ml @ 60 mls/hr [id number] IV 02/06/24 11:15 02/25/24 05:15 60 MLS/HR Ondansetron HCl 4 mg Q4HP PRN IV 02/06/24 11:15 02/06/24 20:59 4 MG Docusate Sodium 100 mg BIDPRN PRN PO 02/06/24 11:15 Acetaminophen 650 mg Q6HP PRN PO 02/06/24 11:15 02/07/24 02:00 650 MG Nitroglycerin 0.4 mg Q5MINP PRN SL 02/06/24 11:45 Sodium Chloride 10 ml QSHIFT@10,22 IV 02/10/24 22:00 02/25/24 12:46 10 ML Ceftriaxone Sodium/Dextrose 50 ml @ 50 mls/hr DAILY IV 02/14/24 10:00 Cancel Clindamycin HCl 300 mg Q6HR PO 02/16/24 12:00 02/25/24 18:37 300 MG PHYSICAL EXAM: - GENERAL: Alert and oriented x 3. No acute distress. Well-nourished. - EYES: EOMI. Anicteric. - HENT: Moist mucous membranes. No scleral icterus. No cervical lymphadenopathy. - LUNGS: Clear to auscultation bilaterally. No accessory muscle use. - CARDIOVASCULAR: Regular rate and rhythm. No murmur. No JVD. - ABDOMEN: Soft, non-tender and non-distended. No palpable masses. - EXTREMITIES: No edema. Non-tender.?SKIN: No rashes or lesions. Warm. - NEUROLOGIC: No focal neurological deficits. CN II-XII grossly intact, but not individually tested. - PSYCHIATRIC: Cooperative. Appropriate mood and affect. laboratory and microbiology Laboratory Tests 02/21/24 04:50 02/20/24 02:48 Test 02/21/24 04:50 Range/Units Serum Glucose 97 74-106 mg/dL Problem List/Assessment/Plan Problems(with codes): (1) Cellulitis of right toe (2) Other acute osteomyelitis, right ankle and foot (3) Pain of right great toe (4) Osteomyelitis (5) Cellulitis Problem List/Assessment/Plan ID Problem List: - Deaf, hard of hearing - Sepsis related to right great toe abscess - Right great toe abscess - Right great toe cellulitis - Right great toe osteomyelitis Assessment This is a 28 y.o. male with no significant past medical history, who presents with right great toe pain, swelling, and difficulty sleeping due to excessive pain. The condition began with an abrasion on the top of his great toe related to a hangnail. On admission, labs showed leukocytosis with WBC 18.6, platelets 249, sodium 135, BUN 10, creatinine 0.77, uric acid 5.4. Vital signs: BP 148/98, HR 92, Temp 98.2F, SpO2 99% on room air. Imaging of the right foot showed soft tissue swelling and cellulitis secondary to ulceration, with questionable developing acute osteomyelitis of the underlying lateral distal phalangeal head. The patient was started empirically on vancomycin and Zosyn (piperacillin- tazobactam). Zosyn was stopped because superficial cultures were positive only for MRSA. On 02/12/2024, the patient underwent surgical debridement, which removed several cc's of pus and an abscess extending to the bone. The patient appears to be improving on vancomycin monotherapy. His WBC is now 6.2, platelets 348. No fevers or chills after surgical debridement. He has bloody drainage from his toe, well-contained within the bandage. 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 - Continue wound care as outpatient. - Will follow up on blood cultures. Plan discussed with: Other Dietary Evaluation Review Comments: Consider Gaudencio BID for healing, monitor PO intake to meet 75% of his needs Expected Outcomes/Goals: maintain weight, healed wounds SUNITHA VELAZCO MD Feb 25, 2024 21:45
[2024-02-26] VITALS (9 sets, daily range): BP systolic 121–134; BP diastolic 68–79; PULSE 65–92; RESP 16–20; TEMP 97.9–98.4; O2SAT 97–99
--- NOTE | 2024-02-26 08:34 | DVHPN2 ---
Reviewed: Care Plan, H&P, Labs, Medications, Previous Orders, Radiology Changes from previous H/P or p: No Changes Eyes: No Pain, No Vision change, No Conjunctivae inflammation, No Eyelid inflammation, No Other, No Redness ENT: No Ear pain, No Ear discharge, No Nose pain, No Nose discharge, No Nose congestion, No Mouth pain, No Mouth swelling, No Throat pain, No Throat swelling, No Other Cardiovascular: No Chest Pain, No Palpitations, No Orthopnea, No Paroxysmal Noc. Dyspnea, No Edema, No Lt Headedness, No Other Respiratory: No Cough, No Dry, No Shortness of breath, No SOB with excertion, No Wheezing, No Hemoptysis, No Pleuritic Pain, No Sputum, No Other Gastrointestinal: No Nausea, No Vomiting, No Abdominal Pain, No Diarrhea, No Constipation, No Melena, No Hematochezia, No Other Genitourinary: No Dysuria, No Frequency, No Incontinence, No Hematuria, No Retention, No Other Musculoskeletal: other (Right great toe pain); No neck pain, No shoulder pain, No arm pain, No back pain, No hand pain, No leg pain, No foot pain Skin: No Rash, No Lesions, No Jaundice, No Bruising, No Other Objective Vitals Vital Signs Date Time Temp Pulse Resp B/P (MAP) Pulse Ox O2 Delivery O2 Flow Rate FiO2 02/26/24 05:00 98.0 85 18 134/77 (96) 99 98.0 02/25/24 19:56 Room Air* 0 21 Intake/Output Intake and Output 02/26/24 07:00 Intake Total 2920 ml Output Total 1200 ml Balance 1720 ml Intake Oral 2200 ml IV Total 720 ml Output Urine Total 1200 ml # Voids 5 # Bowel Movements 2 Medications Current Medications Medications Dose Ordered Sig/Linden Route Start Time Stop Time Status Last Admin Dose Admin Sodium Chloride 1,000 ml @ 60 mls/hr [id number] IV 02/06/24 11:15 02/25/24 05:15 60 MLS/HR Ondansetron HCl 4 mg Q4HP PRN IV 02/06/24 11:15 02/06/24 20:59 4 MG Docusate Sodium 100 mg BIDPRN PRN PO 02/06/24 11:15 Acetaminophen 650 mg Q6HP PRN PO 02/06/24 11:15 02/07/24 02:00 650 MG Nitroglycerin 0.4 mg Q5MINP PRN SL 02/06/24 11:45 Sodium Chloride 10 ml QSHIFT@10,22 IV 02/10/24 22:00 02/25/24 22:00 10 ML Ceftriaxone Sodium/Dextrose 50 ml @ 50 mls/hr DAILY IV 02/14/24 10:00 Cancel Clindamycin HCl 300 mg Q6HR PO 02/16/24 12:00 02/26/24 06:46 300 MG Laboratory Results Laboratory Tests 02/20/24 02:48 02/21/24 04:50 Urinalysis Test 02/06/24 09:00 Urine Color Yellow (Yellow) Urine Clarity Clear (Clear) Urine pH 6.5 (5.0-9.0) Urine Specific [place] 1.037 (1.001-1.035) Urine Protein 1+ (Negative) H Urine Ketones 3+ (Negative) H Urine Blood Negative /uL (Negative) Urine Nitrite Negative (Negative) Urine Bilirubin Negative (Negative) Urine Urobilinogen Over mg/dL (Negative) Urine Leukocyte Esterase Negative /uL (Negative) Urine RBC 11 /hpf (0 - 3) Urine WBC 1 /hpf (0 - 3) Urine Squamous Epithelial Cells Few /hpf (<5) Urine Bacteria None seen /hpf (None Seen) Urine Mucus Few (None Seen) Urine Glucose Normal mg/dL (Normal) Microbiology Microbiology Date/Time Source Procedure Growth Status 02/08/24 14:28 Foot Right Gram Stain - Final Complete 02/08/24 14:28 Foot Right Anaerobic Culture - Final Complete 02/08/24 14:28 Aerobic Culture - Final Methicillin Resistant S.aureus Complete 02/06/24 12:47 Blood Blood Culture - Final NO GROWTH AFTER 5 DAYS OF INCUBATION. Complete Labs and/or images reviewed: Labs reviewed by me, Image(s) reviewed by me Assessment/Plan Assessment/Plan Sepsis secondary to cellulitis right foot Acute osteomyelitis and abscess right 1st toe: Patient on clindamycin 300 mg p.o. q.6 placed by ID Hearing impaired MRSA screen positive: Bactroban nasal ointment Deep tissue wound cultures from the wound positive for MRSA sensitive to clindamycin ID consult by Dr. Alfonso Flores appreciated, advised to continue vancomycin and added Rocephin while in the hospital, advised clindamycin 300 mg p.o. q.i.d. for six weeks on discharge Status post I&D to bone and right foot delayed closure by material assembler Dr. Momin on 02/12/2024 Patient is being discharged home on clindamycin p.o. and he will follow up with discharge clinic and podiatric clinic in one week Patient was discharged home on 02/15/2024 Mother and father refused to take the patient home The person with whom he lives is admitted to [facility] business services sales representative Sheila Gates is working on placing the patient in board and care Continue current management until discharge Plan discussed with: Patient Date of Service: Feb 26, 2024 Billing Provider: AYO CERDA MD Common Visit Codes: [id number] INP/OBS CARE(HIGH) AYO CERDA MD Feb 26, 2024 08:34
--- NOTE | 2024-02-26 16:54 | DVHPN2 ---
Consult Progress Note Date Seen: Feb 26, 2024 Subjective Patient reports: No new complaints (doing well and is being attended to by nurses ) Objective vital signs Vital Sign Date Time Temp Pulse Resp B/P (MAP) Pulse Ox O2 Delivery O2 Flow Rate FiO2 02/26/24 12:03 98.1 69 18 124/69 (87) 99 98.1 02/26/24 08:00 Room Air* 0 21 Total Intake and Output 02/25/24 02/25/24 02/26/24 15:00 23:00 07:00 Intake Total 500 ml 800 ml 1620 ml Output Total 1200 ml Balance 500 ml -400 ml 1620 ml medications Current Medications Medications Dose Ordered Sig/Linden Route Start Time Stop Time Status Last Admin Dose Admin Sodium Chloride 1,000 ml @ 60 mls/hr [id number] IV 02/06/24 11:15 02/26/24 14:16 60 MLS/HR Ondansetron HCl 4 mg Q4HP PRN IV 02/06/24 11:15 02/06/24 20:59 4 MG Docusate Sodium 100 mg BIDPRN PRN PO 02/06/24 11:15 Acetaminophen 650 mg Q6HP PRN PO 02/06/24 11:15 02/07/24 02:00 650 MG Nitroglycerin 0.4 mg Q5MINP PRN SL 02/06/24 11:45 Sodium Chloride 10 ml QSHIFT@10,22 IV 02/10/24 22:00 02/26/24 12:25 10 ML Ceftriaxone Sodium/Dextrose 50 ml @ 50 mls/hr DAILY IV 02/14/24 10:00 Cancel Clindamycin HCl 300 mg Q6HR PO 02/16/24 12:00 02/26/24 12:25 300 MG PHYSICAL EXAM: - GENERAL: Alert and oriented x 3. No acute distress. Well-nourished. - EYES: EOMI. Anicteric. - HENT: Moist mucous membranes. No scleral icterus. No cervical lymphadenopathy. - LUNGS: Clear to auscultation bilaterally. No accessory muscle use. - CARDIOVASCULAR: Regular rate and rhythm. No murmur. No JVD. - ABDOMEN: Soft, non-tender and non-distended. No palpable masses. - EXTREMITIES: No edema. Non-tender.?SKIN: No rashes or lesions. Warm. - NEUROLOGIC: No focal neurological deficits. CN II-XII grossly intact, but not individually tested. - PSYCHIATRIC: Cooperative. Appropriate mood and affect. laboratory and microbiology Laboratory Tests 02/21/24 04:50 02/20/24 02:48 Test 02/21/24 04:50 Range/Units Serum Glucose 97 74-106 mg/dL Problem List/Assessment/Plan Problems(with codes): (1) Cellulitis (2) Osteomyelitis (3) Pain of right great toe (4) Other acute osteomyelitis, right ankle and foot (5) Cellulitis of right toe Problem List/Assessment/Plan ID Problem List: - Deaf, hard of hearing - Sepsis related to right great toe abscess - Right great toe abscess - Right great toe cellulitis - Right great toe osteomyelitis Assessment This is a 28 y.o. male with no significant past medical history, who presents with right great toe pain, swelling, and difficulty sleeping due to excessive pain. The condition began with an abrasion on the top of his great toe related to a hangnail. On admission, labs showed leukocytosis with WBC 18.6, platelets 249, sodium 135, BUN 10, creatinine 0.77, uric acid 5.4. Vital signs: BP 148/98, HR 92, Temp 98.2F, SpO2 99% on room air. Imaging of the right foot showed soft tissue swelling and cellulitis secondary to ulceration, with questionable developing acute osteomyelitis of the underlying lateral distal phalangeal head. The patient was started empirically on vancomycin and Zosyn (piperacillin- tazobactam). Zosyn was stopped because superficial cultures were positive only for MRSA. On 02/12/2024, the patient underwent surgical debridement, which removed several cc's of pus and an abscess extending to the bone. The patient appears to be improving on vancomycin monotherapy. His WBC is now 6.2, platelets 348. No fevers or chills after surgical debridement. He has bloody drainage from his toe, well-contained within the bandage. 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 - Continue wound care as outpatient. - Will follow up on blood cultures. Plan discussed with: Other Dietary Evaluation Review Comments: Consider Gaudencio BID for healing, monitor PO intake to meet 75% of his needs Expected Outcomes/Goals: maintain weight, healed wounds SUNITHA VELAZCO MD Feb 26, 2024 16:54
[2024-02-27] VITALS (8 sets, daily range): BP systolic 114–127; BP diastolic 70–82; PULSE 65–96; RESP 18–20; TEMP 97.9–98.4; O2SAT 97–99
--- NOTE | 2024-02-27 08:26 | DVHPN2 ---
Reviewed: Care Plan, H&P, Labs, Medications, Previous Orders, Radiology Changes from previous H/P or p: No Changes Eyes: No Pain, No Vision change, No Conjunctivae inflammation, No Eyelid inflammation, No Other, No Redness ENT: No Ear pain, No Ear discharge, No Nose pain, No Nose discharge, No Nose congestion, No Mouth pain, No Mouth swelling, No Throat pain, No Throat swelling, No Other Cardiovascular: No Chest Pain, No Palpitations, No Orthopnea, No Paroxysmal Noc. Dyspnea, No Edema, No Lt Headedness, No Other Respiratory: No Cough, No Dry, No Shortness of breath, No SOB with excertion, No Wheezing, No Hemoptysis, No Pleuritic Pain, No Sputum, No Other Gastrointestinal: No Nausea, No Vomiting, No Abdominal Pain, No Diarrhea, No Constipation, No Melena, No Hematochezia, No Other Genitourinary: No Dysuria, No Frequency, No Incontinence, No Hematuria, No Retention, No Other Musculoskeletal: other (Right great toe pain); No neck pain, No shoulder pain, No arm pain, No back pain, No hand pain, No leg pain, No foot pain Skin: No Rash, No Lesions, No Jaundice, No Bruising, No Other Objective Vitals Vital Signs Date Time Temp Pulse Resp B/P (MAP) Pulse Ox O2 Delivery O2 Flow Rate FiO2 02/27/24 05:00 98.4 91 18 121/78 (92) 99 98.4 02/26/24 20:00 Room Air* 0 21 Intake/Output Intake and Output 02/27/24 07:00 Intake Total 2290 ml Output Total 2150 ml Balance 140 ml Intake Oral 2290 ml Output Urine Total 2150 ml # Bowel Movements 2 Medications Current Medications Medications Dose Ordered Sig/Linden Route Start Time Stop Time Status Last Admin Dose Admin Sodium Chloride 1,000 ml @ 60 mls/hr [id number] IV 02/06/24 11:15 02/26/24 14:16 60 MLS/HR Ondansetron HCl 4 mg Q4HP PRN IV 02/06/24 11:15 02/06/24 20:59 4 MG Docusate Sodium 100 mg BIDPRN PRN PO 02/06/24 11:15 Acetaminophen 650 mg Q6HP PRN PO 02/06/24 11:15 02/07/24 02:00 650 MG Nitroglycerin 0.4 mg Q5MINP PRN SL 02/06/24 11:45 Sodium Chloride 10 ml QSHIFT@10,22 IV 02/10/24 22:00 02/26/24 12:25 10 ML Ceftriaxone Sodium/Dextrose 50 ml @ 50 mls/hr DAILY IV 02/14/24 10:00 Cancel Clindamycin HCl 300 mg Q6HR PO 02/16/24 12:00 02/27/24 05:47 300 MG Laboratory Results Laboratory Tests 02/20/24 02:48 02/21/24 04:50 Urinalysis Test 02/06/24 09:00 Urine Color Yellow (Yellow) Urine Clarity Clear (Clear) Urine pH 6.5 (5.0-9.0) Urine Specific [place] 1.037 (1.001-1.035) Urine Protein 1+ (Negative) H Urine Ketones 3+ (Negative) H Urine Blood Negative /uL (Negative) Urine Nitrite Negative (Negative) Urine Bilirubin Negative (Negative) Urine Urobilinogen Over mg/dL (Negative) Urine Leukocyte Esterase Negative /uL (Negative) Urine RBC 11 /hpf (0 - 3) Urine WBC 1 /hpf (0 - 3) Urine Squamous Epithelial Cells Few /hpf (<5) Urine Bacteria None seen /hpf (None Seen) Urine Mucus Few (None Seen) Urine Glucose Normal mg/dL (Normal) Microbiology Microbiology Date/Time Source Procedure Growth Status 02/08/24 14:28 Foot Right Gram Stain - Final Complete 02/08/24 14:28 Foot Right Anaerobic Culture - Final Complete 02/08/24 14:28 Aerobic Culture - Final Methicillin Resistant S.aureus Complete 02/06/24 12:47 Blood Blood Culture - Final NO GROWTH AFTER 5 DAYS OF INCUBATION. Complete Labs and/or images reviewed: Labs reviewed by me, Image(s) reviewed by me Assessment/Plan Assessment/Plan Sepsis secondary to cellulitis right foot Acute osteomyelitis and abscess right 1st toe: Patient on clindamycin 300 mg p.o. q.6 placed by ID Hearing impaired MRSA screen positive: Bactroban nasal ointment Deep tissue wound cultures from the wound positive for MRSA sensitive to clindamycin ID consult by Dr. Alfonso Flores appreciated, advised to continue vancomycin and added Rocephin while in the hospital, advised clindamycin 300 mg p.o. q.i.d. for six weeks on discharge Status post I&D to bone and right foot delayed closure by whey department operator Dr. Momin on 02/12/2024 Patient is being discharged home on clindamycin p.o. and he will follow up with discharge clinic and podiatric clinic in one week Patient was discharged home on 02/15/2024 Mother and father refused to take the patient home The person with whom he lives is admitted to [facility] creative services designer Sheila Gates is working on placing the patient in board and care Continue current management until discharge Plan discussed with: Patient My Orders Orders - AYO CERDA MD Procedure Category Date Status Time Mrsa Screen LY 02/26/24 In Process 15:20 Date of Service: Feb 27, 2024 Billing Provider: AYO CERDA MD Common Visit Codes: [id number] INP/OBS CARE(HIGH) AYO CERDA MD Feb 27, 2024 08:26
[2024-02-27] MEDS: CLINDAMYCIN HCL 150 MG CAP PO SCH (17:40)
[2024-02-28] VITALS (8 sets, daily range): BP systolic 110–170; BP diastolic 60–87; PULSE 65–91; RESP 17–20; TEMP 97.8–98.3; O2SAT 94–100
--- NOTE | 2024-02-28 08:43 | DVHPN2 ---
Reviewed: Care Plan, H&P, Labs, Medications, Previous Orders, Radiology Changes from previous H/P or p: No Changes Eyes: No Pain, No Vision change, No Conjunctivae inflammation, No Eyelid inflammation, No Other, No Redness ENT: No Ear pain, No Ear discharge, No Nose pain, No Nose discharge, No Nose congestion, No Mouth pain, No Mouth swelling, No Throat pain, No Throat swelling, No Other Cardiovascular: No Chest Pain, No Palpitations, No Orthopnea, No Paroxysmal Noc. Dyspnea, No Edema, No Lt Headedness, No Other Respiratory: No Cough, No Dry, No Shortness of breath, No SOB with excertion, No Wheezing, No Hemoptysis, No Pleuritic Pain, No Sputum, No Other Gastrointestinal: No Nausea, No Vomiting, No Abdominal Pain, No Diarrhea, No Constipation, No Melena, No Hematochezia, No Other Genitourinary: No Dysuria, No Frequency, No Incontinence, No Hematuria, No Retention, No Other Musculoskeletal: other (Right great toe pain); No neck pain, No shoulder pain, No arm pain, No back pain, No hand pain, No leg pain, No foot pain Skin: No Rash, No Lesions, No Jaundice, No Bruising, No Other Objective Vitals Vital Signs Date Time Temp Pulse Resp B/P (MAP) Pulse Ox O2 Delivery O2 Flow Rate FiO2 02/28/24 08:36 98.1 71 20 115/71 (86) 96 98.1 02/27/24 20:00 Room Air* 0 21 Intake/Output Intake and Output 02/28/24 07:00 Intake Total 1694 ml Output Total 5 ml Balance 1689 ml Intake Oral 1694 ml Output Urine Total 5 ml # Voids 3 Medications Current Medications Medications Dose Ordered Sig/Linden Route Start Time Stop Time Status Last Admin Dose Admin Sodium Chloride 1,000 ml @ 60 mls/hr [id number] IV 02/06/24 11:15 02/27/24 12:26 60 MLS/HR Ondansetron HCl 4 mg Q4HP PRN IV 02/06/24 11:15 02/06/24 20:59 4 MG Docusate Sodium 100 mg BIDPRN PRN PO 02/06/24 11:15 Acetaminophen 650 mg Q6HP PRN PO 02/06/24 11:15 02/07/24 02:00 650 MG Nitroglycerin 0.4 mg Q5MINP PRN SL 02/06/24 11:45 Sodium Chloride 10 ml QSHIFT@10,22 IV 02/10/24 22:00 02/27/24 23:06 10 ML Ceftriaxone Sodium/Dextrose 50 ml @ 50 mls/hr DAILY IV 02/14/24 10:00 Cancel Clindamycin HCl 300 mg Q6HR PO 02/27/24 18:00 02/28/24 06:16 300 MG Laboratory Results Laboratory Tests 02/20/24 02:48 02/21/24 04:50 Urinalysis Test 02/06/24 09:00 Urine Color Yellow (Yellow) Urine Clarity Clear (Clear) Urine pH 6.5 (5.0-9.0) Urine Specific [place] 1.037 (1.001-1.035) Urine Protein 1+ (Negative) H Urine Ketones 3+ (Negative) H Urine Blood Negative /uL (Negative) Urine Nitrite Negative (Negative) Urine Bilirubin Negative (Negative) Urine Urobilinogen Over mg/dL (Negative) Urine Leukocyte Esterase Negative /uL (Negative) Urine RBC 11 /hpf (0 - 3) Urine WBC 1 /hpf (0 - 3) Urine Squamous Epithelial Cells Few /hpf (<5) Urine Bacteria None seen /hpf (None Seen) Urine Mucus Few (None Seen) Urine Glucose Normal mg/dL (Normal) Microbiology Microbiology Date/Time Source Procedure Growth Status 02/26/24 15:10 Nose MRSA Screen - Final Complete 02/06/24 12:47 Blood Blood Culture - Final NO GROWTH AFTER 5 DAYS OF INCUBATION. Complete Labs and/or images reviewed: Labs reviewed by me, Image(s) reviewed by me Assessment/Plan Assessment/Plan Sepsis secondary to cellulitis right foot Acute osteomyelitis and abscess right 1st toe: Patient on clindamycin 300 mg p.o. q.6 placed by ID Hearing impaired MRSA screen positive: Bactroban nasal ointment Deep tissue wound cultures from the wound positive for MRSA sensitive to clindamycin ID consult by Dr. Alfonso Flores appreciated, advised to continue vancomycin and added Rocephin while in the hospital, advised clindamycin 300 mg p.o. q.i.d. for six weeks on discharge Status post I&D to bone and right foot delayed closure by insurance adjuster Dr. Momin on 02/12/2024 Patient is being discharged home on clindamycin p.o. and he will follow up with discharge clinic and podiatric clinic in one week Patient was discharged home on 02/15/2024 Mother and father refused to take the patient home The person with whom he lives is admitted to [facility] cargo services coordinator Sheila Gates is working on placing the patient in board and care Continue current management until discharge Plan discussed with: Patient My Orders Orders - AYO CERDA MD Procedure Category Date Status Time Clindamycin Capsule PHA 02/27/24 In Process (Cleocin Capsule) 18:00 Date of Service: Feb 28, 2024 Billing Provider: AYO CERDA MD Common Visit Codes: [id number] INP/OBS CARE(HIGH) AYO CERDA MD Feb 28, 2024 08:43
--- NOTE | 2024-02-28 22:21 | DVHPN2 ---
Consult Progress Note Date Seen: Feb 27, 2024 Subjective Patient reports: Feels better (no nausea from clindamycin) Objective vital signs Vital Sign Date Time Temp Pulse Resp B/P (MAP) Pulse Ox O2 Delivery O2 Flow Rate FiO2 02/28/24 20:00 18 Room Air* 0 21 02/28/24 17:04 97.8 72 120/78 (92) 99 97.8 Total Intake and Output 02/27/24 02/27/24 02/28/24 15:00 23:00 07:00 Intake Total 794 ml 900 ml Output Total 5 ml Balance 789 ml 900 ml medications Current Medications Medications Dose Ordered Sig/Linden Route Start Time Stop Time Status Last Admin Dose Admin Sodium Chloride 1,000 ml @ 60 mls/hr [id number] IV 02/06/24 11:15 02/27/24 12:26 60 MLS/HR Ondansetron HCl 4 mg Q4HP PRN IV 02/06/24 11:15 02/06/24 20:59 4 MG Docusate Sodium 100 mg BIDPRN PRN PO 02/06/24 11:15 Acetaminophen 650 mg Q6HP PRN PO 02/06/24 11:15 02/07/24 02:00 650 MG Nitroglycerin 0.4 mg Q5MINP PRN SL 02/06/24 11:45 Sodium Chloride 10 ml QSHIFT@10,22 IV 02/10/24 22:00 02/28/24 10:00 10 ML Ceftriaxone Sodium/Dextrose 50 ml @ 50 mls/hr DAILY IV 02/14/24 10:00 Cancel Clindamycin HCl 300 mg Q6HR PO 02/27/24 18:00 02/28/24 17:19 300 MG PHYSICAL EXAM: - GENERAL: Alert and oriented x 3. No acute distress. Well-nourished. ? - EYES: EOMI. Anicteric. ?- HENT: Moist mucous membranes. No scleral icterus. No cervical lymphadenopathy. ?- LUNGS: Clear to auscultation bilaterally. No accessory muscle use.? - CARDIOVASCULAR: Regular rate and rhythm. No murmur. No JVD.? - ABDOMEN: Soft, non-tender and non-distended. No palpable masses.? - EXTREMITIES: No edema. Non-tender.?SKIN: No rashes or lesions. Warm. ? - NEUROLOGIC: No focal neurological deficits. CN II-XII grossly intact, but not individually tested.? - PSYCHIATRIC: Cooperative. Appropriate mood and affect. laboratory and microbiology Laboratory Tests 02/21/24 04:50 02/20/24 02:48 Test 02/21/24 04:50 Range/Units Serum Glucose 97 74-106 mg/dL Problem List/Assessment/Plan Problem List/Assessment/Plan ID Problem List: - Deaf, hard of hearing - Sepsis related to right great toe abscess - Right great toe abscess - Right great toe cellulitis - Right great toe osteomyelitis Assessment This is a 28 y.o. male with no significant past medical history, who presents with right great toe pain, swelling, and difficulty sleeping due to excessive pain. The condition began with an abrasion on the top of his great toe related to a hangnail. On admission, labs showed leukocytosis with WBC 18.6, platelets 249, sodium 135, BUN 10, creatinine 0.77, uric acid 5.4. Vital signs: BP 148/98, HR 92, Temp 98.2F, SpO2 99% on room air. Imaging of the right foot showed soft tissue swelling and cellulitis secondary to ulceration, with questionable developing acute osteomyelitis of the underlying lateral distal phalangeal head. The patient was started empirically on vancomycin and Zosyn (piperacillin- tazobactam). Zosyn was stopped because superficial cultures were positive only for MRSA. On 02/12/2024, the patient underwent surgical debridement, which removed several cc's of pus and an abscess extending to the bone. The patient appears to be improving on vancomycin monotherapy. His WBC is now 6.2, platelets 348. No fevers or chills after surgical debridement. He has bloody drainage from his toe, well-contained within the bandage. 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 - Continue wound care as outpatient. - Will follow up on blood cultures. Plan discussed with: Patient Dietary Evaluation Review Comments: Consider Gaudencio BID for healing, monitor PO intake to meet 75% of his needs Expected Outcomes/Goals: maintain weight, healed wounds SUNITHA VELAZCO MD Feb 28, 2024 22:21
[2024-02-29] VITALS (8 sets, daily range): BP systolic 103–130; BP diastolic 60–87; PULSE 75–95; RESP 14–19; TEMP 97.6–98.5; O2SAT 97–99
--- NOTE | 2024-02-29 08:32 | DVHPN2 ---
Reviewed: Care Plan, H&P, Labs, Medications, Previous Orders, Radiology Changes from previous H/P or p: No Changes Eyes: No Pain, No Vision change, No Conjunctivae inflammation, No Eyelid inflammation, No Other, No Redness ENT: No Ear pain, No Ear discharge, No Nose pain, No Nose discharge, No Nose congestion, No Mouth pain, No Mouth swelling, No Throat pain, No Throat swelling, No Other Cardiovascular: No Chest Pain, No Palpitations, No Orthopnea, No Paroxysmal Noc. Dyspnea, No Edema, No Lt Headedness, No Other Respiratory: No Cough, No Dry, No Shortness of breath, No SOB with excertion, No Wheezing, No Hemoptysis, No Pleuritic Pain, No Sputum, No Other Gastrointestinal: No Nausea, No Vomiting, No Abdominal Pain, No Diarrhea, No Constipation, No Melena, No Hematochezia, No Other Genitourinary: No Dysuria, No Frequency, No Incontinence, No Hematuria, No Retention, No Other Musculoskeletal: other (Right great toe pain); No neck pain, No shoulder pain, No arm pain, No back pain, No hand pain, No leg pain, No foot pain Skin: No Rash, No Lesions, No Jaundice, No Bruising, No Other Objective Vitals Vital Signs Date Time Temp Pulse Resp B/P (MAP) Pulse Ox O2 Delivery O2 Flow Rate FiO2 02/29/24 05:00 97.9 78 17 121/87 (98) 99 97.9 02/28/24 20:00 Room Air* 0 21 Intake/Output Intake and Output 02/29/24 07:00 Intake Total 1465 ml Balance 1465 ml Intake Oral 1465 ml # Voids 9 # Bowel Movements 9 Medications Current Medications Medications Dose Ordered Sig/Linden Route Start Time Stop Time Status Last Admin Dose Admin Sodium Chloride 1,000 ml @ 60 mls/hr [id number] IV 02/06/24 11:15 02/27/24 12:26 60 MLS/HR Ondansetron HCl 4 mg Q4HP PRN IV 02/06/24 11:15 02/06/24 20:59 4 MG Docusate Sodium 100 mg BIDPRN PRN PO 02/06/24 11:15 Acetaminophen 650 mg Q6HP PRN PO 02/06/24 11:15 02/07/24 02:00 650 MG Nitroglycerin 0.4 mg Q5MINP PRN SL 02/06/24 11:45 Sodium Chloride 10 ml QSHIFT@,22 IV 02/10/24 22:00 02/28/24 10:00 10 ML Ceftriaxone Sodium/Dextrose 50 ml @ 50 mls/hr DAILY IV 02/14/24 10:00 Cancel Clindamycin HCl 300 mg Q6HR PO 02/27/24 18:00 02/29/24 06:14 300 MG Laboratory Results Laboratory Tests 02/20/24 02:48 02/21/24 04:50 Urinalysis Test 02/06/24 09:00 Urine Color Yellow (Yellow) Urine Clarity Clear (Clear) Urine pH 6.5 (5.0-9.0) Urine Specific [place] 1.037 (1.001-1.035) Urine Protein 1+ (Negative) H Urine Ketones 3+ (Negative) H Urine Blood Negative /uL (Negative) Urine Nitrite Negative (Negative) Urine Bilirubin Negative (Negative) Urine Urobilinogen Over mg/dL (Negative) Urine Leukocyte Esterase Negative /uL (Negative) Urine RBC 11 /hpf (0 - 3) Urine WBC 1 /hpf (0 - 3) Urine Squamous Epithelial Cells Few /hpf (<5) Urine Bacteria None seen /hpf (None Seen) Urine Mucus Few (None Seen) Urine Glucose Normal mg/dL (Normal) Microbiology Microbiology Date/Time Source Procedure Growth Status 02/26/24 15:10 Nose MRSA Screen - Final Complete 02/06/24 12:47 Blood Blood Culture - Final NO GROWTH AFTER 5 DAYS OF INCUBATION. Complete Labs and/or images reviewed: Labs reviewed by me, Image(s) reviewed by me Assessment/Plan Assessment/Plan Sepsis secondary to cellulitis right foot Acute osteomyelitis and abscess right 1st toe: Patient on clindamycin 300 mg p.o. q.6 placed by ID Hearing impaired MRSA screen positive: Bactroban nasal ointment Deep tissue wound cultures from the wound positive for MRSA sensitive to clindamycin ID consult by Dr. Alfonso Flores appreciated, advised to continue vancomycin and added Rocephin while in the hospital, advised clindamycin 300 mg p.o. q.i.d. for six weeks on discharge Status post I&D to bone and right foot delayed closure by dry kiln operator helper Dr. Momin on 02/12/2024 Patient is being discharged home on clindamycin p.o. and he will follow up with discharge clinic and podiatric clinic in one week Patient was discharged home on 02/15/2024 Mother and father refused to take the patient home The person with whom he lives is admitted to [facility] clinical services director Sheila Gates is working on placing the patient in board and care Continue current management until discharge Waiting for aunt to pick him up. Plan discussed with: Patient Date of Service: Feb 29, 2024 Billing Provider: AYO CERDA MD Common Visit Codes: [id number] INP/OBS CARE(HIGH) AYO CERDA MD Feb 29, 2024 08:32
--- NOTE | 2024-02-29 22:09 | DVHPN2 ---
Consult Progress Note Date Seen: Feb 29, 2024 Subjective Patient reports: Feels better (no complaints, no fevers) Objective vital signs Vital Sign Date Time Temp Pulse Resp B/P (MAP) Pulse Ox O2 Delivery O2 Flow Rate FiO2 02/29/24 21:14 98.5 86 14 129/72 (91) 98 98.5 02/29/24 08:00 Room Air* 0 21 Total Intake and Output 02/28/24 02/28/24 02/29/24 15:00 23:00 07:00 Intake Total 1015 ml 450 ml Balance 1015 ml 450 ml medications Current Medications Medications Dose Ordered Sig/Linden Route Start Time Stop Time Status Last Admin Dose Admin Sodium Chloride 1,000 ml @ 60 mls/hr [id number] IV 02/06/24 11:15 02/27/24 12:26 60 MLS/HR Ondansetron HCl 4 mg Q4HP PRN IV 02/06/24 11:15 02/06/24 20:59 4 MG Docusate Sodium 100 mg BIDPRN PRN PO 02/06/24 11:15 Acetaminophen 650 mg Q6HP PRN PO 02/06/24 11:15 02/29/24 12:31 650 MG Nitroglycerin 0.4 mg Q5MINP PRN SL 02/06/24 11:45 Sodium Chloride 10 ml QSHIFT@10,22 IV 02/10/24 22:00 02/29/24 10:00 10 ML Ceftriaxone Sodium/Dextrose 50 ml @ 50 mls/hr DAILY IV 02/14/24 10:00 Cancel Clindamycin HCl 300 mg Q6HR PO 02/27/24 18:00 02/29/24 18:03 300 MG PHYSICAL EXAM: - GENERAL: Alert and oriented x 3. No acute distress. Well-nourished. - EYES: EOMI. Anicteric. - HENT: Moist mucous membranes. No scleral icterus. No cervical lymphadenopathy. - LUNGS: Clear to auscultation bilaterally. No accessory muscle use. - CARDIOVASCULAR: Regular rate and rhythm. No murmur. No JVD. - ABDOMEN: Soft, non-tender and non-distended. No palpable masses. - EXTREMITIES: No edema. Non-tender.SKIN: No rashes or lesions. Warm. - NEUROLOGIC: No focal neurological deficits. CN II-XII grossly intact, but not individually tested. - PSYCHIATRIC: Cooperative. Appropriate mood and affect. laboratory and microbiology Laboratory Tests 02/21/24 04:50 02/20/24 02:48 Test 02/21/24 04:50 Range/Units Serum Glucose 97 74-106 mg/dL Problem List/Assessment/Plan Problem List/Assessment/Plan ID Problem List: - Deaf, hard of hearing - Sepsis related to right great toe abscess - Right great toe abscess - Right great toe cellulitis - Right great toe osteomyelitis Assessment This is a 28 y.o. male with no significant past medical history, who presents with right great toe pain, swelling, and difficulty sleeping due to excessive pain. The condition began with an abrasion on the top of his great toe related to a hangnail. On admission, labs showed leukocytosis with WBC 18.6, platelets 249, sodium 135, BUN 10, creatinine 0.77, uric acid 5.4. Vital signs: BP 148/98, HR 92, Temp 98.2F, SpO2 99% on room air. Imaging of the right foot showed soft tissue swelling and cellulitis secondary to ulceration, with questionable developing acute osteomyelitis of the underlying lateral distal phalangeal head. The patient was started empirically on vancomycin and Zosyn (piperacillin- tazobactam). Zosyn was stopped because superficial cultures were positive only for MRSA. On 02/12/2024, the patient underwent surgical debridement, which removed several cc's of pus and an abscess extending to the bone. The patient appears to be improving on vancomycin monotherapy. His WBC is now 6.2, platelets 348. No fevers or chills after surgical debridement. He has bloody drainage from his toe, well-contained within the bandage. 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 - Continue wound care as outpatient. - Will follow up on blood cultures. Plan discussed with: Patient Dietary Evaluation Review Comments: Consider Gaudencio BID for healing, monitor PO intake to meet 75% of his needs Expected Outcomes/Goals: maintain weight, healed wounds SUNITHA VELAZCO MD Feb 29, 2024 22:09
[2024-03-01] VITALS (7 sets, daily range): BP systolic 105–125; BP diastolic 64–74; PULSE 67–91; RESP 14–20; TEMP 97.8–98.6; O2SAT 94–100
--- NOTE | 2024-03-01 07:54 | DVHPN2 ---
Reviewed: Care Plan, H&P, Labs, Medications, Previous Orders, Radiology Changes from previous H/P or p: No Changes Eyes: No Pain, No Vision change, No Conjunctivae inflammation, No Eyelid inflammation, No Other, No Redness ENT: No Ear pain, No Ear discharge, No Nose pain, No Nose discharge, No Nose congestion, No Mouth pain, No Mouth swelling, No Throat pain, No Throat swelling, No Other Cardiovascular: No Chest Pain, No Palpitations, No Orthopnea, No Paroxysmal Noc. Dyspnea, No Edema, No Lt Headedness, No Other Respiratory: No Cough, No Dry, No Shortness of breath, No SOB with excertion, No Wheezing, No Hemoptysis, No Pleuritic Pain, No Sputum, No Other Gastrointestinal: No Nausea, No Vomiting, No Abdominal Pain, No Diarrhea, No Constipation, No Melena, No Hematochezia, No Other Genitourinary: No Dysuria, No Frequency, No Incontinence, No Hematuria, No Retention, No Other Musculoskeletal: other (Right great toe pain); No neck pain, No shoulder pain, No arm pain, No back pain, No hand pain, No leg pain, No foot pain Skin: No Rash, No Lesions, No Jaundice, No Bruising, No Other Objective Vitals Vital Signs Date Time Temp Pulse Resp B/P (MAP) Pulse Ox O2 Delivery O2 Flow Rate FiO2 03/01/24 01:27 97.9 79 14 108/66 (80) 100 97.9 02/29/24 20:00 Room Air* 0 21 Intake/Output Intake and Output 03/01/24 07:00 Intake Total 1250 ml Balance 1250 ml Intake Oral 1250 ml # Voids 8 # Bowel Movements 7 Medications Current Medications Medications Dose Ordered Sig/Linden Route Start Time Stop Time Status Last Admin Dose Admin Sodium Chloride 1,000 ml @ 60 mls/hr [id number] IV 02/06/24 11:15 02/27/24 12:26 60 MLS/HR Ondansetron HCl 4 mg Q4HP PRN IV 02/06/24 11:15 02/06/24 20:59 4 MG Docusate Sodium 100 mg BIDPRN PRN PO 02/06/24 11:15 Acetaminophen 650 mg Q6HP PRN PO 02/06/24 11:15 02/29/24 12:31 650 MG Nitroglycerin 0.4 mg Q5MINP PRN SL 02/06/24 11:45 Sodium Chloride 10 ml QSHIFT@10,22 IV 02/10/24 22:00 02/29/24 10:00 10 ML Ceftriaxone Sodium/Dextrose 50 ml @ 50 mls/hr DAILY IV 02/14/24 10:00 Cancel Clindamycin HCl 300 mg Q6HR PO 02/27/24 18:00 03/01/24 04:55 300 MG Laboratory Results Laboratory Tests 02/20/24 02:48 02/21/24 04:50 Urinalysis Test 02/06/24 09:00 Urine Color Yellow (Yellow) Urine Clarity Clear (Clear) Urine pH 6.5 (5.0-9.0) Urine Specific [place] 1.037 (1.001-1.035) Urine Protein 1+ (Negative) H Urine Ketones 3+ (Negative) H Urine Blood Negative /uL (Negative) Urine Nitrite Negative (Negative) Urine Bilirubin Negative (Negative) Urine Urobilinogen Over mg/dL (Negative) Urine Leukocyte Esterase Negative /uL (Negative) Urine RBC 11 /hpf (0 - 3) Urine WBC 1 /hpf (0 - 3) Urine Squamous Epithelial Cells Few /hpf (<5) Urine Bacteria None seen /hpf (None Seen) Urine Mucus Few (None Seen) Urine Glucose Normal mg/dL (Normal) Microbiology Microbiology Date/Time Source Procedure Growth Status 02/26/24 15:10 Nose MRSA Screen - Final Complete 02/06/24 12:47 Blood Blood Culture - Final NO GROWTH AFTER 5 DAYS OF INCUBATION. Complete Labs and/or images reviewed: Labs reviewed by me, Image(s) reviewed by me Assessment/Plan Assessment/Plan Sepsis secondary to cellulitis right foot Acute osteomyelitis and abscess right 1st toe: Patient on clindamycin 300 mg p.o. q.6 placed by ID Hearing impaired MRSA screen positive: Bactroban nasal ointment Deep tissue wound cultures from the wound positive for MRSA sensitive to clindamycin ID consult by Dr. Alfonso Flores appreciated, advised to continue vancomycin and added Rocephin while in the hospital, advised clindamycin 300 mg p.o. q.i.d. for six weeks on discharge Status post I&D to bone and right foot delayed closure by taffy puller Dr. Momin on 02/12/2024 Patient is being discharged home on clindamycin p.o. and he will follow up with discharge clinic and podiatric clinic in one week Patient was discharged home on 02/15/2024 Mother and father refused to take the patient home The person with whom he lives is admitted to [facility] environmental services coordinator Sheila Gates is working on placing the patient in board and care Continue current management until discharge Waiting for aunt to pick him up. Plan discussed with: Patient Date of Service: Mar 01, 2024 Billing Provider: AYO CERDA MD Common Visit Codes: [id number] INP/OBS CARE(HIGH) AYO CERDA MD Mar 01, 2024 07:54
--- NOTE | 2024-03-01 23:36 | DVHPN2 ---
Consult Progress Note Date Seen: Mar 01, 2024 Subjective Patient reports: No new complaints (seeing a nutrionist who recommends that patient has increased nutrition needs for his wound but is meeting those with current diet , hard of hearing ) Objective vital signs Vital Sign Date Time Temp Pulse Resp B/P (MAP) Pulse Ox O2 Delivery O2 Flow Rate FiO2 03/01/24 21:00 98.6 91 20 125/67 (86) 97 98.6 03/01/24 08:00 Room Air* 0 21 Total Intake and Output 02/29/24 02/29/24 03/01/24 15:00 23:00 07:00 Intake Total 1100 ml 150 ml Balance 1100 ml 150 ml medications Current Medications Medications Dose Ordered Sig/Linden Route Start Time Stop Time Status Last Admin Dose Admin Sodium Chloride 1,000 ml @ 60 mls/hr [id number] IV 02/06/24 11:15 03/01/24 18:32 60 MLS/HR Ondansetron HCl 4 mg Q4HP PRN IV 02/06/24 11:15 02/06/24 20:59 4 MG Docusate Sodium 100 mg BIDPRN PRN PO 02/06/24 11:15 Acetaminophen 650 mg Q6HP PRN PO 02/06/24 11:15 02/29/24 12:31 650 MG Nitroglycerin 0.4 mg Q5MINP PRN SL 02/06/24 11:45 Sodium Chloride 10 ml QSHIFT@10,22 IV 02/10/24 22:00 03/01/24 21:44 10 ML Ceftriaxone Sodium/Dextrose 50 ml @ 50 mls/hr DAILY IV 02/14/24 10:00 Cancel Clindamycin HCl 300 mg Q6HR PO 02/27/24 18:00 03/01/24 23:19 300 MG PHYSICAL EXAM: - GENERAL: Alert and oriented x 3. No acute distress. Well-nourished. - EYES: EOMI. Anicteric. - HENT: Moist mucous membranes. No scleral icterus. No cervical lymphadenopathy. - LUNGS: Clear to auscultation bilaterally. No accessory muscle use. - CARDIOVASCULAR: Regular rate and rhythm. No murmur. No JVD. - ABDOMEN: Soft, non-tender and non-distended. No palpable masses. - EXTREMITIES: No edema. Non-tender.SKIN: No rashes or lesions. Warm. - NEUROLOGIC: No focal neurological deficits. CN II-XII grossly intact, but not individually tested. - PSYCHIATRIC: Cooperative. Appropriate mood and affect. laboratory and microbiology Laboratory Tests 02/21/24 04:50 02/20/24 02:48 Test 02/21/24 04:50 Range/Units Serum Glucose 97 74-106 mg/dL Problem List/Assessment/Plan Problems(with codes): (1) Cellulitis of right toe (2) Other acute osteomyelitis, right ankle and foot (3) Pain of right great toe (4) Osteomyelitis (5) Cellulitis Problem List/Assessment/Plan ID Problem List: - Deaf, hard of hearing - Sepsis related to right great toe abscess - Right great toe abscess - Right great toe cellulitis - Right great toe osteomyelitis Assessment This is a 28 y.o. male with no significant past medical history, who presents with right great toe pain, swelling, and difficulty sleeping due to excessive pain. The condition began with an abrasion on the top of his great toe related to a hangnail. On admission, labs showed leukocytosis with WBC 18.6, platelets 249, sodium 135, BUN 10, creatinine 0.77, uric acid 5.4. Vital signs: BP 148/98, HR 92, Temp 98.2F, SpO2 99% on room air. Imaging of the right foot showed soft tissue swelling and cellulitis secondary to ulceration, with questionable developing acute osteomyelitis of the underlying lateral distal phalangeal head. The patient was started empirically on vancomycin and Zosyn (piperacillin- tazobactam). Zosyn was stopped because superficial cultures were positive only for MRSA. On 02/12/2024, the patient underwent surgical debridement, which removed several cc's of pus and an abscess extending to the bone. The patient appears to be improving on vancomycin monotherapy. His WBC is now 6.2, platelets 348. No fevers or chills after surgical debridement. He has bloody drainage from his toe, well-contained within the bandage. 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 - Continue wound care as outpatient. - Will follow up on blood cultures. Plan discussed with: Other Dietary Evaluation Review Comments: Consider Gaudencio BID for healing, monitor PO intake to meet 75% of his needs Expected Outcomes/Goals: maintain weight, healed wounds SUNITHA VELAZCO MD Mar 01, 2024 23:36
[2024-03-02] VITALS (8 sets, daily range): BP systolic 110–131; BP diastolic 63–73; PULSE 61–87; RESP 16–20; TEMP 97.6–98.9; O2SAT 96–100
--- NOTE | 2024-03-02 08:37 | DVHPN2 ---
Reviewed: Care Plan, H&P, Labs, Medications, Previous Orders, Radiology Changes from previous H/P or p: No Changes Eyes: No Pain, No Vision change, No Conjunctivae inflammation, No Eyelid inflammation, No Other, No Redness ENT: No Ear pain, No Ear discharge, No Nose pain, No Nose discharge, No Nose congestion, No Mouth pain, No Mouth swelling, No Throat pain, No Throat swelling, No Other Cardiovascular: No Chest Pain, No Palpitations, No Orthopnea, No Paroxysmal Noc. Dyspnea, No Edema, No Lt Headedness, No Other Respiratory: No Cough, No Dry, No Shortness of breath, No SOB with excertion, No Wheezing, No Hemoptysis, No Pleuritic Pain, No Sputum, No Other Gastrointestinal: No Nausea, No Vomiting, No Abdominal Pain, No Diarrhea, No Constipation, No Melena, No Hematochezia, No Other Genitourinary: No Dysuria, No Frequency, No Incontinence, No Hematuria, No Retention, No Other Musculoskeletal: other (Right great toe pain); No neck pain, No shoulder pain, No arm pain, No back pain, No hand pain, No leg pain, No foot pain Skin: No Rash, No Lesions, No Jaundice, No Bruising, No Other Objective Vitals Vital Signs Date Time Temp Pulse Resp B/P (MAP) Pulse Ox O2 Delivery O2 Flow Rate FiO2 03/02/24 05:00 98.9 82 20 110/63 (79) 96 98.9 03/01/24 20:00 Room Air* 0 21 Intake/Output Intake and Output 03/02/24 07:00 Intake Total 1580 ml Balance 1580 ml Intake Oral 1580 ml # Voids 6 Medications Current Medications Medications Dose Ordered Sig/Linden Route Start Time Stop Time Status Last Admin Dose Admin Sodium Chloride 1,000 ml @ 60 mls/hr [id number] IV 02/06/24 11:15 03/01/24 18:32 60 MLS/HR Ondansetron HCl 4 mg Q4HP PRN IV 02/06/24 11:15 02/06/24 20:59 4 MG Docusate Sodium 100 mg BIDPRN PRN PO 02/06/24 11:15 Acetaminophen 650 mg Q6HP PRN PO 02/06/24 11:15 02/29/24 12:31 650 MG Nitroglycerin 0.4 mg Q5MINP PRN SL 02/06/24 11:45 Sodium Chloride 10 ml QSHIFT@10,22 IV 02/10/24 22:00 03/01/24 21:44 10 ML Ceftriaxone Sodium/Dextrose 50 ml @ 50 mls/hr DAILY IV 02/14/24 10:00 Cancel Clindamycin HCl 300 mg Q6HR PO 02/27/24 18:00 03/02/24 05:29 300 MG Laboratory Results Laboratory Tests 02/20/24 02:48 02/21/24 04:50 Urinalysis Test 02/06/24 09:00 Urine Color Yellow (Yellow) Urine Clarity Clear (Clear) Urine pH 6.5 (5.0-9.0) Urine Specific [place] 1.037 (1.001-1.035) Urine Protein 1+ (Negative) H Urine Ketones 3+ (Negative) H Urine Blood Negative /uL (Negative) Urine Nitrite Negative (Negative) Urine Bilirubin Negative (Negative) Urine Urobilinogen Over mg/dL (Negative) Urine Leukocyte Esterase Negative /uL (Negative) Urine RBC 11 /hpf (0 - 3) Urine WBC 1 /hpf (0 - 3) Urine Squamous Epithelial Cells Few /hpf (<5) Urine Bacteria None seen /hpf (None Seen) Urine Mucus Few (None Seen) Urine Glucose Normal mg/dL (Normal) Microbiology Microbiology Date/Time Source Procedure Growth Status 02/26/24 15:10 Nose MRSA Screen - Final Complete 02/06/24 12:47 Blood Blood Culture - Final NO GROWTH AFTER 5 DAYS OF INCUBATION. Complete Labs and/or images reviewed: Labs reviewed by me, Image(s) reviewed by me Assessment/Plan Assessment/Plan Sepsis secondary to cellulitis right foot Acute osteomyelitis and abscess right 1st toe: Patient on clindamycin 300 mg p.o. q.6 placed by ID Hearing impaired MRSA screen positive: Bactroban nasal ointment Deep tissue wound cultures from the wound positive for MRSA sensitive to clindamycin ID consult by Dr. Alfonso Flores appreciated, advised to continue vancomycin and added Rocephin while in the hospital, advised clindamycin 300 mg p.o. q.i.d. for six weeks on discharge Status post I&D to bone and right foot delayed closure by dimension stone quarry supervisor Dr. Momin on 02/12/2024 Patient is being discharged home on clindamycin p.o. and he will follow up with discharge clinic and podiatric clinic in one week Patient was discharged home on 02/15/2024 Mother and father refused to take the patient home The person with whom he lives is admitted to [facility] statement services representative Sheila Gates is working on placing the patient in board and care Continue current management until discharge Patient Still waiting for his aunt to pick him up Plan discussed with: Patient Date of Service: Mar 02, 2024 Billing Provider: AYO CERDA MD Common Visit Codes: [id number] INP/OBS CARE(HIGH) AYO CERDA MD Mar 02, 2024 08:37
--- NOTE | 2024-03-02 23:06 | DVHPN2 ---
Consult Progress Note Date Seen: Mar 04, 2024 Subjective Patient reports: Feels better (no nausea from clindamycin) Objective vital signs Vital Sign Date Time Temp Pulse Resp B/P (MAP) Pulse Ox O2 Delivery O2 Flow Rate FiO2 03/02/24 21:00 97.9 87 16 131/68 (89) 98 97.9 03/02/24 08:00 Room Air* 0 21 Total Intake and Output 03/01/24 03/01/24 03/02/24 15:00 23:00 07:00 Intake Total 780 ml 800 ml Balance 780 ml 800 ml medications Current Medications Medications Dose Ordered Sig/Linden Route Start Time Stop Time Status Last Admin Dose Admin Sodium Chloride 1,000 ml @ 60 mls/hr [id number] IV 02/06/24 11:15 03/02/24 23:04 60 MLS/HR Ondansetron HCl 4 mg Q4HP PRN IV 02/06/24 11:15 02/06/24 20:59 4 MG Docusate Sodium 100 mg BIDPRN PRN PO 02/06/24 11:15 Acetaminophen 650 mg Q6HP PRN PO 02/06/24 11:15 02/29/24 12:31 650 MG Nitroglycerin 0.4 mg Q5MINP PRN SL 02/06/24 11:45 Sodium Chloride 10 ml QSHIFT@10,22 IV 02/10/24 22:00 03/02/24 22:01 10 ML Ceftriaxone Sodium/Dextrose 50 ml @ 50 mls/hr DAILY IV 02/14/24 10:00 Cancel Clindamycin HCl 300 mg Q6HR PO 02/27/24 18:00 03/02/24 23:02 300 MG HEENT: PERRL. Normal lids and conjunctiva. Moist mucous membranes. Oropharynx without lesions, exudates, or excessive erythema. Normal appearance of the external aspects of the nose and ears. Heart: Regular rhythm, normal rate. No murmur. No lower extremity edema. Lungs: Normal respiratory effort. Clear to auscultation bilaterally. No wheezes. No crackles. Abdomen: Soft. Non-tender. Non-distended. No masses or abdominal hernia. MSK: No digital cyanosis. Normal strength and tone in all 4 limbs. Skin: Warm and dry. Neuro: Alert. No facial droop or slurred speech. Extra-ocular movements intact. Sensation intact to soft touch in all 4 limbs. Psych: Appropriate mood. Full affect. Oriented to person, place, time, and situation. laboratory and microbiology Laboratory Tests 02/21/24 04:50 02/20/24 02:48 Test 02/21/24 04:50 Range/Units Serum Glucose 97 74-106 mg/dL Problem List/Assessment/Plan Problem List/Assessment/Plan ID Problem List: - Deaf, hard of hearing - Sepsis related to right great toe abscess - Right great toe abscess - Right great toe cellulitis - Right great toe osteomyelitis Assessment This is a 28 y.o. male with no significant past medical history, who presents with right great toe pain, swelling, and difficulty sleeping due to excessive pain. The condition began with an abrasion on the top of his great toe related to a hangnail. On admission, labs showed leukocytosis with WBC 18.6, platelets 249, sodium 135, BUN 10, creatinine 0.77, uric acid 5.4. Vital signs: BP 148/98, HR 92, Temp 98.2F, SpO2 99% on room air. Imaging of the right foot showed soft tissue swelling and cellulitis secondary to ulceration, with questionable developing acute osteomyelitis of the underlying lateral distal phalangeal head. The patient was started empirically on vancomycin and Zosyn (piperacillin- tazobactam). Zosyn was stopped because superficial cultures were positive only for MRSA. On 02/12/2024, the patient underwent surgical debridement, which removed several cc's of pus and an abscess extending to the bone. The patient appears to be improving on vancomycin monotherapy. His WBC is now 6.2, platelets 348. No fevers or chills after surgical debridement. He has bloody drainage from his toe, well-contained within the bandage. 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 - Continue wound care as outpatient. - Will follow up on blood cultures. Plan discussed with: Patient Dietary Evaluation Review Comments: Consider Gaudencio BID for healing, monitor PO intake to meet 75% of his needs Expected Outcomes/Goals: maintain weight, healed wounds SUNITHA VELAZCO MD Mar 02, 2024 23:06
[2024-03-03] VITALS (8 sets, daily range): BP systolic 107–129; BP diastolic 52–71; PULSE 76–91; RESP 18–20; TEMP 90–98.3; O2SAT 95–100
--- NOTE | 2024-03-03 07:49 | DVHPN2 ---
Reviewed: Care Plan, H&P, Labs, Medications, Previous Orders, Radiology Changes from previous H/P or p: No Changes Eyes: No Pain, No Vision change, No Conjunctivae inflammation, No Eyelid inflammation, No Other, No Redness ENT: No Ear pain, No Ear discharge, No Nose pain, No Nose discharge, No Nose congestion, No Mouth pain, No Mouth swelling, No Throat pain, No Throat swelling, No Other Cardiovascular: No Chest Pain, No Palpitations, No Orthopnea, No Paroxysmal Noc. Dyspnea, No Edema, No Lt Headedness, No Other Respiratory: No Cough, No Dry, No Shortness of breath, No SOB with excertion, No Wheezing, No Hemoptysis, No Pleuritic Pain, No Sputum, No Other Gastrointestinal: No Nausea, No Vomiting, No Abdominal Pain, No Diarrhea, No Constipation, No Melena, No Hematochezia, No Other Genitourinary: No Dysuria, No Frequency, No Incontinence, No Hematuria, No Retention, No Other Musculoskeletal: other (Right great toe pain); No neck pain, No shoulder pain, No arm pain, No back pain, No hand pain, No leg pain, No foot pain Skin: No Rash, No Lesions, No Jaundice, No Bruising, No Other Objective Vitals Vital Signs Date Time Temp Pulse Resp B/P (MAP) Pulse Ox O2 Delivery O2 Flow Rate FiO2 03/03/24 05:00 97.9 85 18 116/71 (86) 98 97.9 03/02/24 20:00 Room Air* 0 21 Intake/Output Intake and Output 03/03/24 07:00 Intake Total 3185 ml Balance 3185 ml Intake Oral 3185 ml # Voids 12 Medications Current Medications Medications Dose Ordered Sig/Linden Route Start Time Stop Time Status Last Admin Dose Admin Sodium Chloride 1,000 ml @ 60 mls/hr [id number] IV 02/06/24 11:15 03/02/24 23:04 60 MLS/HR Ondansetron HCl 4 mg Q4HP PRN IV 02/06/24 11:15 02/06/24 20:59 4 MG Docusate Sodium 100 mg BIDPRN PRN PO 02/06/24 11:15 Acetaminophen 650 mg Q6HP PRN PO 02/06/24 11:15 02/29/24 12:31 650 MG Nitroglycerin 0.4 mg Q5MINP PRN SL 02/06/24 11:45 Sodium Chloride 10 ml QSHIFT@10,22 IV 02/10/24 22:00 03/02/24 22:01 10 ML Ceftriaxone Sodium/Dextrose 50 ml @ 50 mls/hr DAILY IV 02/14/24 10:00 Cancel Clindamycin HCl 300 mg Q6HR PO 02/27/24 18:00 03/03/24 05:07 300 MG Laboratory Results Laboratory Tests 02/20/24 02:48 02/21/24 04:50 Urinalysis Test 02/06/24 09:00 Urine Color Yellow (Yellow) Urine Clarity Clear (Clear) Urine pH 6.5 (5.0-9.0) Urine Specific [place] 1.037 (1.001-1.035) Urine Protein 1+ (Negative) H Urine Ketones 3+ (Negative) H Urine Blood Negative /uL (Negative) Urine Nitrite Negative (Negative) Urine Bilirubin Negative (Negative) Urine Urobilinogen Over mg/dL (Negative) Urine Leukocyte Esterase Negative /uL (Negative) Urine RBC 11 /hpf (0 - 3) Urine WBC 1 /hpf (0 - 3) Urine Squamous Epithelial Cells Few /hpf (<5) Urine Bacteria None seen /hpf (None Seen) Urine Mucus Few (None Seen) Urine Glucose Normal mg/dL (Normal) Microbiology Microbiology Date/Time Source Procedure Growth Status 02/26/24 15:10 Nose MRSA Screen - Final Complete 02/06/24 12:47 Blood Blood Culture - Final NO GROWTH AFTER 5 DAYS OF INCUBATION. Complete Labs and/or images reviewed: Labs reviewed by me, Image(s) reviewed by me Assessment/Plan Assessment/Plan Sepsis secondary to cellulitis right foot Acute osteomyelitis and abscess right 1st toe: Patient on clindamycin 300 mg p.o. q.6 placed by ID Hearing impaired MRSA screen positive: Bactroban nasal ointment Deep tissue wound cultures from the wound positive for MRSA sensitive to clindamycin ID consult by Dr. Alfonso Flores appreciated, advised to continue vancomycin and added Rocephin while in the hospital, advised clindamycin 300 mg p.o. q.i.d. for six weeks on discharge Status post I&D to bone and right foot delayed closure by physics department chair Dr. Momin on 02/12/2024 Patient is being discharged home on clindamycin p.o. and he will follow up with discharge clinic and podiatric clinic in one week Patient was discharged home on 02/15/2024 Mother and father refused to take the patient home The person with whom he lives is admitted to [facility] multicultural services librarian Sheila Gates is working on placing the patient in board and care Continue current management until discharge Patient Still waiting for his aunt to pick him up Plan discussed with: Patient Date of Service: Mar 03, 2024 Billing Provider: AYO CERDA MD Common Visit Codes: [id number] INP/OBS CARE(HIGH) AYO CERDA MD Mar 03, 2024 07:49
--- NOTE | 2024-03-03 23:40 | DVHPN2 ---
Consult Progress Note Date Seen: Mar 03, 2024 Subjective Patient reports: Feels better (patient understand plan for discharge) Objective vital signs Vital Sign Date Time Temp Pulse Resp B/P (MAP) Pulse Ox O2 Delivery O2 Flow Rate FiO2 03/03/24 21:00 97.8 76 20 129/64 (85) 98 97.8 03/03/24 20:00 Room Air* 0 21 Total Intake and Output 03/02/24 03/02/24 03/03/24 15:00 23:00 07:00 Intake Total 2060 ml 1125 ml Balance 2060 ml 1125 ml medications Current Medications Medications Dose Ordered Sig/Linden Route Start Time Stop Time Status Last Admin Dose Admin Sodium Chloride 1,000 ml @ 60 mls/hr [id number] IV 02/06/24 11:15 03/02/24 23:04 60 MLS/HR Ondansetron HCl 4 mg Q4HP PRN IV 02/06/24 11:15 02/06/24 20:59 4 MG Docusate Sodium 100 mg BIDPRN PRN PO 02/06/24 11:15 Acetaminophen 650 mg Q6HP PRN PO 02/06/24 11:15 02/29/24 12:31 650 MG Nitroglycerin 0.4 mg Q5MINP PRN SL 02/06/24 11:45 Sodium Chloride 10 ml QSHIFT@10,22 IV 02/10/24 22:00 03/03/24 21:55 10 ML Ceftriaxone Sodium/Dextrose 50 ml @ 50 mls/hr DAILY IV 02/14/24 10:00 Cancel Clindamycin HCl 300 mg Q6HR PO 02/27/24 18:00 03/03/24 23:36 300 MG HEENT: PERRL. Normal lids and conjunctiva. Moist mucous membranes. Oropharynx without lesions, exudates, or excessive erythema. Normal appearance of the external aspects of the nose and ears. Heart: Regular rhythm, normal rate. No murmur. No lower extremity edema. Lungs: Normal respiratory effort. Clear to auscultation bilaterally. No wheezes. No crackles. Abdomen: Soft. Non-tender. Non-distended. No masses or abdominal hernia. MSK: No digital cyanosis. Normal strength and tone in all 4 limbs. Skin: Warm and dry. Neuro: Alert. No facial droop or slurred speech. Extra-ocular movements intact. Sensation intact to soft touch in all 4 limbs. Psych: Appropriate mood. Full affect. Oriented to person, place, time, and situation. laboratory and microbiology Laboratory Tests 02/21/24 04:50 02/20/24 02:48 Test 02/21/24 04:50 Range/Units Serum Glucose 97 74-106 mg/dL Problem List/Assessment/Plan Problems(with codes): (1) Cellulitis (2) Osteomyelitis (3) Pain of right great toe (4) Other acute osteomyelitis, right ankle and foot (5) Cellulitis of right toe Problem List/Assessment/Plan ID Problem List: - Deaf, hard of hearing - Sepsis related to right great toe abscess - Right great toe abscess - Right great toe cellulitis - Right great toe osteomyelitis Assessment This is a 28 y.o. male with no significant past medical history, who presents with right great toe pain, swelling, and difficulty sleeping due to excessive pain. The condition began with an abrasion on the top of his great toe related to a hangnail. On admission, labs showed leukocytosis with WBC 18.6, platelets 249, sodium 135, BUN 10, creatinine 0.77, uric acid 5.4. Vital signs: BP 148/98, HR 92, Temp 98.2F, SpO2 99% on room air. Imaging of the right foot showed soft tissue swelling and cellulitis secondary to ulceration, with questionable developing acute osteomyelitis of the underlying lateral distal phalangeal head. The patient was started empirically on vancomycin and Zosyn (piperacillin- tazobactam). Zosyn was stopped because superficial cultures were positive only for MRSA. On 02/12/2024, the patient underwent surgical debridement, which removed several cc's of pus and an abscess extending to the bone. The patient appears to be improving on vancomycin monotherapy. His WBC is now 6.2, platelets 348. No fevers or chills after surgical debridement. He has bloody drainage from his toe, well-contained within the bandage. 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 - Continue wound care as outpatient. - Will follow up on blood cultures. Plan discussed with: Patient Dietary Evaluation Review Comments: Consider Gaudencio BID for healing, monitor PO intake to meet 75% of his needs Expected Outcomes/Goals: maintain weight, healed wounds SUNITHA EVLAZCO MD Mar 03, 2024 23:40
[2024-03-04 00:53] VITALS: BP 103/51; PULSE 89; RESP 20; TEMP 97.9; O2SAT 96
[2024-03-04 05:00] VITALS: BP 108/63; PULSE 82; RESP 20; TEMP 98; O2SAT 97
[2024-03-04 08:00] VITALS: PULSE 72; RESP 18; O2SAT 97
--- NOTE | 2024-03-04 08:26 | DVHPN2 ---
Reviewed: Care Plan, H&P, Labs, Medications, Previous Orders, Radiology Changes from previous H/P or p: No Changes Eyes: No Pain, No Vision change, No Conjunctivae inflammation, No Eyelid inflammation, No Other, No Redness ENT: No Ear pain, No Ear discharge, No Nose pain, No Nose discharge, No Nose congestion, No Mouth pain, No Mouth swelling, No Throat pain, No Throat swelling, No Other Cardiovascular: No Chest Pain, No Palpitations, No Orthopnea, No Paroxysmal Noc. Dyspnea, No Edema, No Lt Headedness, No Other Respiratory: No Cough, No Dry, No Shortness of breath, No SOB with excertion, No Wheezing, No Hemoptysis, No Pleuritic Pain, No Sputum, No Other Gastrointestinal: No Nausea, No Vomiting, No Abdominal Pain, No Diarrhea, No Constipation, No Melena, No Hematochezia, No Other Genitourinary: No Dysuria, No Frequency, No Incontinence, No Hematuria, No Retention, No Other Musculoskeletal: other (Right great toe pain); No neck pain, No shoulder pain, No arm pain, No back pain, No hand pain, No leg pain, No foot pain Skin: No Rash, No Lesions, No Jaundice, No Bruising, No Other Objective Vitals Vital Signs Date Time Temp Pulse Resp B/P (MAP) Pulse Ox O2 Delivery O2 Flow Rate FiO2 03/04/24 05:00 98.0 82 20 108/63 (78) 97 98.0 03/03/24 20:00 Room Air* 0 21 Intake/Output Intake and Output 03/04/24 07:00 Intake Total 4020 ml Balance 4020 ml Intake Oral 3020 ml IV Total 1000 ml # Voids 9 # Bowel Movements 2 Medications Current Medications Medications Dose Ordered Sig/Linden Route Start Time Stop Time Status Last Admin Dose Admin Sodium Chloride 1,000 ml @ 60 mls/hr [id number] IV 02/06/24 11:15 03/04/24 04:18 60 MLS/HR Ondansetron HCl 4 mg Q4HP PRN IV 02/06/24 11:15 02/06/24 20:59 4 MG Docusate Sodium 100 mg BIDPRN PRN PO 02/06/24 11:15 Acetaminophen 650 mg Q6HP PRN PO 02/06/24 11:15 02/29/24 12:31 650 MG Nitroglycerin 0.4 mg Q5MINP PRN SL 02/06/24 11:45 Sodium Chloride 10 ml QSHIFT@10,22 IV 02/10/24 22:00 03/03/24 21:55 10 ML Ceftriaxone Sodium/Dextrose 50 ml @ 50 mls/hr DAILY IV 02/14/24 10:00 Cancel Clindamycin HCl 300 mg Q6HR PO 02/27/24 18:00 03/04/24 05:44 300 MG Laboratory Results Laboratory Tests 02/20/24 02:48 02/21/24 04:50 Urinalysis Test 02/06/24 09:00 Urine Color Yellow (Yellow) Urine Clarity Clear (Clear) Urine pH 6.5 (5.0-9.0) Urine Specific [place] 1.037 (1.001-1.035) Urine Protein 1+ (Negative) H Urine Ketones 3+ (Negative) H Urine Blood Negative /uL (Negative) Urine Nitrite Negative (Negative) Urine Bilirubin Negative (Negative) Urine Urobilinogen Over mg/dL (Negative) Urine Leukocyte Esterase Negative /uL (Negative) Urine RBC 11 /hpf (0 - 3) Urine WBC 1 /hpf (0 - 3) Urine Squamous Epithelial Cells Few /hpf (<5) Urine Bacteria None seen /hpf (None Seen) Urine Mucus Few (None Seen) Urine Glucose Normal mg/dL (Normal) Microbiology Microbiology Date/Time Source Procedure Growth Status 02/26/24 15:10 Nose MRSA Screen - Final Complete 02/06/24 12:47 Blood Blood Culture - Final NO GROWTH AFTER 5 DAYS OF INCUBATION. Complete Labs and/or images reviewed: Labs reviewed by me, Image(s) reviewed by me Assessment/Plan Assessment/Plan Sepsis secondary to cellulitis right foot Acute osteomyelitis and abscess right 1st toe: Patient on clindamycin 300 mg p.o. q.6 placed by ID Hearing impaired MRSA screen positive: Bactroban nasal ointment Deep tissue wound cultures from the wound positive for MRSA sensitive to clindamycin ID consult by Dr. Alfonso Flores appreciated, advised to continue vancomycin and added Rocephin while in the hospital, advised clindamycin 300 mg p.o. q.i.d. for six weeks on discharge Status post I&D to bone and right foot delayed closure by trolley cleaner Dr. Momin on 02/12/2024 Patient is being discharged home on clindamycin p.o. and he will follow up with discharge clinic and podiatric clinic in one week Patient was discharged home on 02/15/2024 Mother and father refused to take the patient home The person with whom he lives is admitted to [facility] office services specialist Sheila Gates is working on placing the patient in board and care Continue current management until discharge Patient Still waiting for his aunt to pick him up Plan discussed with: Patient Date of Service: Mar 04, 2024 Billing Provider: AYO CERDA MD Common Visit Codes: [id number] INP/OBS CARE(HIGH) AYO CERDA MD Mar 04, 2024 08:26
[2024-03-04 09:00] VITALS: BP 14/71; PULSE 72; RESP 18; TEMP 97.8; O2SAT 97
[2024-03-04 12:29] VITALS: BP 105/61; PULSE 87; RESP 18; TEMP 98.7; O2SAT 97
[2024-03-04 14:58] VITALS: BP 105/61; PULSE 87; RESP 18; TEMP 98.5; O2SAT 97
== END 2024-03-04 15:35 | disposition home or self-care (01) | DRG 710 ==
LOC: ER 07:48 → OVERFLOW 11:40 → WEST WING 23:57 → CENTRAL 02-11 22:15
PROVIDERS: ADMIT Nurse Practitioner Family; ATTEND Family Medicine
PROC: 0J9Q0ZZ Drainage of Right Foot Subcutaneous Tissue and Fascia, Open Approach (ICD-10-PCS; principal; 2024-02-08 14:17)
PROC: 02HV33Z Insertion of Infusion Device into Superior Vena Cava, Percutaneous Approach (ICD-10-PCS; 2024-02-10)
PROC: B548ZZA Ultrasonography of Superior Vena Cava, Guidance (ICD-10-PCS; 2024-02-10)
PROC: 0J9Q0ZZ Drainage of Right Foot Subcutaneous Tissue and Fascia, Open Approach (ICD-10-PCS; 2024-02-12)
DX: A41.9 Sepsis, unspecified organism (principal); M86.171 Other acute osteomyelitis, right ankle and foot; L03.115 Cellulitis of right lower limb; L02.611 Cutaneous abscess of right foot; B95.62 Methicillin resistant Staphylococcus aureus infection as the cause of diseases classified elsewhere; F20.9 Schizophrenia, unspecified; L97.519 Non-pressure chronic ulcer of other part of right foot with unspecified severity; Z59.00 Homelessness unspecified
CPT/HCPCS: 36415; 36569; 73630; 76937; 80048; 80053; 80202; 81001; 82565; 84550; 85007; 85025; 85027; 85610; 85730; 86141; 86850; 86900; 86901; 87040; 87070; 87075; 87077; 87081; 87186; 87205; 96365; 96372; G0378; J0696; J1100; J2003; J2250; J2405; J2543; J2704; J3490